=== PATIENT | female | born 1965 | race Caucasian/White ===

== ENCOUNTER 2025-07-11 18:11 | Emergency (ER) | payer OTHER, SELFPAY ==
--- OUTSIDE RECORDS SUMMARY | 2025-07-09 14:20 | XMS_ITS | Encounter Summary ---
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 01/06/2026 (Approximate), Expires: 04/07/2026 documented as of this encounter Visit Diagnoses Diagnosis History of breast cancer- Primary Personal history of malignant neoplasm of breast Fatty liver Other chronic nonalcoholic liver disease documented in this encounter Care Teams Ring Attacher Relationship Specialty Start Date End Date Elayne Bishop CNP [address] [place] [address] PCP - General 02/09/23 [place] [address] [place] [address] Consulting Hematology/Oncology 06/27/19 [place] ([place] [address] [place] [address] Specialty Warp Tester Hematology/Oncology 07/16/19 Katelyn Oneal PAFransicoC [address] [place] [address] Physician Semiconductor Package Symbol Stamper Hematology/Oncology 08/15/19 Ochoa Oden MD [address] [place] [address] Physician Hematology/Oncology 06/20/24 Tc Senior APRN [address] [place] [address] Referring 04/10/25 documented as of this encounter
[2025-07-11 18:18] VITALS: BP 180/90; PULSE 84; TEMP 36.7; O2SAT 98; BMI 44.9
--- OUTSIDE RECORDS SUMMARY | 2025-07-11 18:19 | XMS_ITS | Encounter Summary ---
Author Organization [facility] Address [facility] [place] [address] Care Team Providers Care Electric Welder Name Role Phone Halina Orantes MD Unavailable Destini Kent(Hist) Primary Care Provider Unavail able Destiney Martins (Rn) RN Unavailable Janine Carter RN Unavailable [phone] Cory Lang MD Unavailable [phone] Katelyn Oneal PA-C Unavailable [phone] Elayne Bishop CNP Primary Care Provider [phone] Ochoa Oden MD Unavailable [phone] Tc Senior APRN Unavailable [phone] Source Comments In the event this information is protected by the Federal Confidentiality of Alcohol and Drug AbusePatient Records regulations: The Federal rules restrict any use of the information to criminally investigate or prosecute any alcohol or drug abuse patient.[facility] Encounter Details Date Type Department Care Team (Late st Contact Info) Description 12/11/2019 Radiology Radiology [address] [place] [address] Ricarda Ventura RDMS Social History Tobacco Use Types Packs/Day Years Used Date Smoking Tobacco: Former Cigarettes Q uit: 2008 Smokeless Tobacco: Never Alcohol Use Standard Drinks/Week Comments Not Currently 0 (1 standard drink = 0.6 oz pur e alcohol) PHQ-2 Answer Date Recorded PHQ-2 Score 0 08/18/2019 Comments No Sex and Gender Information Value Date Recorded Sex Assigned at Female 09/22/2021 7:14 AM EST Legal Sex Female 10:30 AM EDT Gender Identity Female 09/22/2021 7:14 AM EST Sexual Orientation Straight 09/22/2021 7: 14 AM EST documented as of this encounter Functional Status * Are you deaf or do you have serious difficulty hearing? Answer Date of Assessment Author No 08/02/2019 3:47 PM EDT Ab taco Ray RN * Are you blind or do you have serious difficulty seeing, even when wearing glasses? Answer Date of Assessment Author No 08/02/2019 3:47 PM MAURYT Ab taco Ray RN * Do you have serious difficulty walking or climbing stairs? Answer Date of Assessment Author No 08/02/2019 3:47 PM Ab taco Driver RN * Do you have difficulty dressing or bathing? Answer Date of Assessment Author No 08/02/2019 3:47 PM MAURYT Ab taco Ray RN * Because of a physical, mental, or emotional condition, do you have difficulty doing errands alone such as visiting a doctor's office or shopping? Answer Date of Assessment Author No 08/02/2019 3:47 PM Ab taco Driver RN documented as of this encounter Mental Status * Because of a physical, mental, or emotional condition, do you have serious difficulty concentrating, remembering, or making decisions? Answer Entry Date Author No 08/02/2019 3:47 PM Ab taco Driver RN documented in this encounter Plan of Treatment Upcoming Encounters Date Type Department Care Team (Late st Contact Info) Description 08/02/2025 10:30 AM EDT Office Visit Cardiology [address] [place] [address] [place] [address] [place] [address] SOB 11/05/2025 7:15 AM EST Office Visit Cardiology [address] [place] [address] Dx: Palpitation [R00.2] 11/05/2025 7:30 AM EST Procedure Cardiology [address] [place] [address] Dx: Palpitation [R00.2] 11/05/2025 8:15 AM EST Office Visit Preventive Cardiology [address] [place] [address] Brayan Leonardo MD [address] [facility] [address] [place] [address] Dx: Palpitation [R00.2] 12/31/2025 1:45 PM EDT Office Visit [facility] [address] [place] [address] 6 month follow up with lab 12/31/2025 2:00 PM EDT Visit (SP) Office Hematology/Oncolog y [address] [address] Katelyn Oneal, PA-C [address] [place] [address] 6 month follow up with lab documented as of this encounter Visit Diagnoses Not on filedocumented in this encounter Care Teams Electric Welder Relationship Specialty Start Date End Date Destini Kent(Hist) PCP - General 07/13/19 02/08/23 Elayne Bishop CNP [address] [place] [address] PCP - General 02/09/23 [place] [address] [place] [address] Consulting Hematology/Oncology 06/27/19 Destniey [place] ([place] [address] [place] [address] Specialty City Routeman Hematology/Oncology 07/16/19 Janine Carter RN [address] [facility] [place] [address] Specialty [place]eman Hematology/Oncology 08/15/19 02/01/24 Cory Lang MD [address] [facility] [place] [address] Physician Hematology/Oncology 08/15/19 06/19/24 Katelyn Oneal, PA-C [address] [place] [address] Physician Doctor Of Chiropractic Hematology/Oncology 08/15/19 Ochoa Oden MD [address] [place] [address] Physician Hematology/Oncology 06/20/24 Tc Senior APRN [address] [place] [address] Referring 04/10/25 documented as of this encounter
--- OUTSIDE RECORDS SUMMARY | 2025-07-11 18:19 | XMS_ITS | Encounter Summary ---
Author Organization [facility] Address [facility] [place] [address] Care Team Providers Care Orthotic And Prosthetic Technician Name Role Phone Halina Orantes MD Unavailable Destini Kent(Hist) Primary Care Provider Unavail able Destiney Martins (Rn) RN Unavailable [phone] Janine Carter RN Unavailable [phone] Cory Lang MD Unavailable [phone] Katelyn Oneal PA-C Unavailable [phone] Elayne Bishop CNP Primary Care Provider [phone] Ochoa Oden MD Unavailable [phone] Tc Senior APRN Unavailable [phone] Source Comments In the event this information is protected by the Federal Confidentiality of Alcohol and Drug AbusePatient Records regulations: The Federal rules restrict any use of the information to criminally investigate or prosecute any alcohol or drug abuse patient.[facility] Encounter Details Date Type Department Care Team (Late st Contact Info) Description 12/12/2019 Radiology Radiology [address] [place] [address] Cali Pradhan MD, [address] [place] [address] Social History Tobacco Use Types Packs/Day Years [...] 3:47 PM Ab taco Driver RN * Are you blind or do you have serious difficulty seeing, even when wearing glasses? Answer Date of Assessment Author No 08/02/2019 3:47 PM Ab taco Driver RN * Do you have serious difficulty walking or climbing stairs? Answer Date of Assessment Author No 08/02/2019 3:47 PM Ab taco Driver RN * Do you have difficulty dressing or bathing? Answer Date of Assessment Author No 08/02/2019 3:47 PM Ab taco Driver RN * Because of a physical, mental, [...] taco Driver RN documented in this encounter Progress Notes * Hai Araujo (Tech), Tech - 12/12/2019 7:50 AM EST RADIOLOGY SERVICE PROGRESS NOTE SERVICE DATE: 12/12/2019 SERVICE TIME: 7:50 AM PATIENT IDENTITY VERIFICATION COMPLETED USING TWO (2) STANDARD IDENTIFIERS: Name and Date of confirmed by patient verbally PATIENT GENDER DATA: .female : No ALLERGIES: Reviewed and unchanged MEDICATIONS REVIEWED: Yes PATIENT RELEVANT IMPLANT DATA REVIEWED: Not Applicable CREATININE: Creatinine Date Value Ref Range Status 12/05/2019 0.79 0.58 - 0.96 mg/dL Final 11/13/2019 0.95 0.58 - 0.96 mg/dL Final 10/23/2019 0.93 0.58 - 0.96 mg/dL Final eGFR-All Other Races Date Value Ref Range Status 12/05/2019 >60 . Final Comment: eGFR (Estimated GFR) Units of measure: mL/min/1.73 meters squared eGFR is derived from the reexpressed MDRD Study equation using the following parameters: serum creatinine, age, gender and race. The creatinine assay has been calibrated to be traceable to IDMS. An eGFR <60 mL/min/1.73m2 for >3 months is consistent with chronic kidney disease. Refer to KDOQI guidelines for clinical interpretation. In patients with unstable renal function, e.g. those with acute kidney injury, the eGFR may not accurately reflect actual GFR. eGFR- Date Value Ref Range Status 12/05/2019 >60 Final P.O.C.T. RESULTS: N/A December 12, [address] PERFORMED: No IV SITE: NM only - not applicable, oral or physician administered agents given to patient POST EXAM PIV STATUS: Not applicable PROCEDURE TYPE: NM INJECT: LEFT BREAST SENTINEL INJECTION. 538 microcuries Tc99m SULFUR COLLOID . No other medications given.. ADMINISTRATION TIME: 745 PATIENT DISCHARGED TO: Ambulatory patient, left [place] department area. A Diagnostic radioactive procedure has taken place, with no further precautions necessary other than routine body substance precautions. More information regarding radiation safety can be found usingthis link: [email or web address] SIGNATURE: Mian Judd PATIENT NAME: Pavithra Martins DATE: December 12, 2019 TIME: 7:50 AM PAGER/CONTACT #: documented in this encounter Plan of Treatment Upcoming Encounters Date Type Department Care Team (Late st Contact Info) Description 08/02/2025 10:30 AM EDT Office Visit Cardiology [address] [place] [address] [place] [address] [facility] [place] [address] SOB 11/05/2025 7:15 AM EST Office Visit Cardiology [address] [place] [address] Dx: Palpitation [R00.2] 11/05/2025 7:30 AM EST Procedure Cardiology [address] [place] [address] Dx: Palpitation [R00.2] 11/05/2025 8:15 AM EST Office Visit Preventive Cardiology [address] [place] [address] Brayan Leonardo MD [address] [place] [address] [place] [address] Dx: Palpitation [R00.2] 12/31/2025 1:45 PM EDT Office Visit [facility] [address] [address] [place] [address] 6 month follow up with lab 12/31/2025 2:00 PM EDT Visit (SP) Office Hematology/Oncolog y [address] [place] [address] Katelyn Oneal, PAFransicoC [address] [facility] [address] [place] [address] 6 month follow up with lab documented as of this encounter Visit Diagnoses Not on filedocumented in this encounter Care Teams Orthotic And Prosthetic Technician Relationship Specialty Start Date End Date Destini Kent(Hist) PCP - General 07/13/19 02/08/23 Elayne Bishop, TUCKER [address] [place] [address] PCP - General 02/09/23 [place] [address] [place] [address] Consulting Hematology/Oncology 06/27/19 [place] ([place] [address] [place] [address] Specialty Felt Finisher Hematology/Oncology 07/16/19 Janine Carter RN [address] [facility] [place] [address] Specialty Felt Finisher Hematology/Oncology 08/15/19 02/01/24 Cory Lang MD [address] [place] [address] [place] [address] Physician Hematology/Oncology 08/15/19 06/19/24 Katelyn Oneal, PA-C [address] [place] [address] [place] [address] Physician Retail Operations Specialist Hematology/Oncology 08/15/19 Ochoa Oden MD [address] [facility] [place] [address] Physician Hematology/Oncology 06/20/24 cT Senior APRN [address] [place] [address] Referring 04/10/25 documented as of this encounter
--- OUTSIDE RECORDS SUMMARY | 2025-07-11 18:19 | XMS_ITS | Encounter Summary ---
Author Organization [facility] Address [facility] [place] [address] Care Team Providers Care Dredge Operator Supervisor Name Role Phone Halina Orantes MD Unavailable Destini Kent(Hist) Primary Care Provider Unavail able Destiney Martins (Rn) RN Unavailable Janine Carter RN Unavailable [phone] Cory Lang MD Unavailable [phone] Katelyn Oneal PA-C Unavailable [phone] Elayne Bishop CNP Primary Care Provider [phone] Ochoa Oden MD Unavailable [phone] Tc Senior APRN Unavailable [phone] Source Comments In the event this information is protected by the Federal Confidentiality of Alcohol and Drug AbusePatient Records regulations: The Federal rules restrict any use of the information to criminally investigate or prosecute any alcohol or drug abuse patient.[facility] Encounter Details Date Type Department Care Team (Late st Contact Info) Description 12/11/2019 Radiology Radiology [address] [place] [address] Sybil Faustin MD [address] [place] [address] Social History Tobacco Use Types Packs/Day Years [...] 08/02/2025 10:30 AM EDT Office Visit [facility] [address] [facility] [place] [address] [place] [address] [facility] [place] [address] SOB 11/05/2025 7:15 AM EST Office Visit Cardiology [address] [place] [address] Dx: Palpitation [R00.2] 11/05/2025 7:30 AM EST Procedure Cardiology [address] [place] [address] Dx: Palpitation [R00.2] 11/05/2025 8:15 AM EST Office Visit Preventive Cardiology [address] [place] [address] Brayan Leonardo MD [address] [facility] [address] [place] [address] Dx: Palpitation [R00.2] 12/31/2025 1:45 PM EDT Office Visit [facility] [address] [address] 6 month follow up with lab 12/31/2025 2:00 PM EDT Visit (SP) Office Hematology/Oncolog y [address] [place] [address] Katelyn Oneal, PA-C [address] [place] [place] [address] 6 month follow up with lab documented as of this encounter Visit Diagnoses Not on filedocumented in this encounter Care Teams Dredge Operator Supervisor Relationship Specialty Start Date End Date Destini Kent(Hist) PCP - General 07/13/19 02/08/23 Elayne Bishop, TUCKER [address] [place] [address] PCP - General 02/09/23 [place] [address] [place] [address] Consulting Hematology/Oncology 06/27/19 [place]y [place] ([place]), [place] [address] [place] [address] Specialty Packing Inspector Hematology/Oncology 07/16/19 Janine Carter, RN [address] [place] [address] Specialty Packing Inspector Hematology/Oncology 08/15/19 02/01/24 oCry Lang MD [address] [place] [address] [place] [address] Physician Hematology/Oncology 08/15/19 06/19/24 Katelyn Oneal PAFransicoC [address] [place] [address] [place] [address] Physician Vat Tender Hematology/Oncology 08/15/19 Ochoa Oden MD [address] [place] [address] [place] [address] Physician Hematology/Oncology 06/20/24 Tc Senior APRN [address] [place] [address] Referring 04/10/25 documented as of this encounter
--- OUTSIDE RECORDS SUMMARY | 2025-07-11 18:19 | XMS_ITS | Encounter Summary ---
Author Organization [facility] Address [facility] [place] [address] Care Team Providers Care Emergency Department Coordinator Name Role Phone Halina Orantes MD Unavailable Destini Kent(Hist) Primary Care Provider Unavail able Destiney Martins (Rn) RN Unavailable [phone] Janine Carter RN Unavailable [phone] Cory Lang MD Unavailable [phone] Katelyn Oneal PA-C Unavailable [phone] Elayne Bishop CNP Primary Care Provider [phone] Ochoa Oden MD Unavailable [phone] Tc Senior APRN Unavailable [phone] Source Comments In the event this information is protected by the Federal Confidentiality of Alcohol and Drug AbusePatient Records regulations: The Federal rules restrict any use of the information to criminally investigate or prosecute any alcohol or drug abuse patient.[facility] Encounter Details Date Type Department Care Team (Latest Contact Info) Description 11/22/2019 Patient Msg [facility] Occupational Therapy [address] [place] [address] Yon Gretel, OTR/Elle [address] [place], [place] [id number] RE: Appointment Cancellation Request Social History Tobacco Use Types Packs/Day Years Used Date Smoking Tobacco: Former Smokeless Tobacco: Never Comments:quit 11 years ago Alcohol Use Standard Drinks/Week Comments Not Currently [...] taco Ray RN documented in this encounter Plan of Treatment Upcoming Encounters Date Type Department Care Team (Late st Contact Info) Description 08/02/2025 10:30 AM EDT Office Visit Cardiology [address] [place] [address] [place] [address] [place] [address] SOB 11/05/2025 7:15 AM EST Office Visit Cardiology [address] [place] [address] Dx: Palpitation [R00.2] 11/05/2025 7:30 AM EST Procedure Cardiology [address] [place] [address] Dx: Palpitation [R00.2] 11/05/2025 8:15 AM EST Office Visit Preventive Cardiology [address] [place] [address] Brayan Leonardo MD [address] [facility] [address] [place] [address] Dx: Palpitation [R00.2] 12/31/2025 1:45 PM EDT Office Visit [facility] Laboratory [address] [facility] [place] [address] 6 month follow up with lab 12/31/2025 2:00 PM EDT Visit (SP) Office Hematology/Oncolog y [address] [place] [address] Katelyn Oneal PAFransicoC [address] [place] [address] 6 month follow up with lab documented as of this encounter Visit Diagnoses Not on filedocumented in this encounter Care Teams Emergency Department Coordinator Relationship Specialty Start Date End Date Destini Kent(Hist) PCP - General 07/13/19 02/08/23 Elayne Bishop CNP [address] [place] [address] PCP - General 02/09/23 [place] [address] [facility] [place] [address] Consulting Hematology/Oncology 06/27/19 Destiney [place] ([place]), [place] [address] [place] [address] Specialty Manufacturing Applications Engineer Hematology/Oncology 07/16/19 Janine Carter RN [address] [facility] [place] [address] Specialty Manufacturing Applications Engineer Hematology/Oncology 08/15/19 02/01/24 Cory Lang MD [address] [facility] [place] [address] Physician Hematology/Oncology 08/15/19 06/19/24 Katelyn Oneal PA-C [address] [place] [address] Physician Corporate Travel Counselor Hematology/Oncology 08/15/19 Ochoa Oden MD [address] [place] [address] Physician Hematology/Oncology 06/20/24 Tc Senior APRN [address] [place] [address] Referring 04/10/25 documented as of this encounter
--- OUTSIDE RECORDS SUMMARY | 2025-07-11 18:19 | XMS_ITS | Encounter Summary ---
Author Organization [facility] Address [facility] [place] [address] Care Team Providers Care Doll Dresser Name Role Phone Halina Orantes MD Unavailable Destini Kent(Hist) Primary Care Provider Unavail able Destiney Martins (Rn) RN Unavailable Janine Carter RN Unavailable [phone] Cory Lang MD Unavailable [phone] Katelyn Oneal PA-C Unavailable [phone] Elayne Bishop CNP Primary Care Provider [phone] Ochoa Oden MD Unavailable [phone] Tc Senior APRN Unavailable [phone] Source Comments In the event this information is protected by the Federal Confidentiality of Alcohol and Drug AbusePatient Records regulations: The Federal rules restrict any use of the information to criminally investigate or prosecute any alcohol or drug abuse patient.[facility] Encounter Details Date Type Department Care Team (Late st Contact Info) Description 11/22/2019 Get Medical Advice Hematology/Oncology [address] [address] [place] [address] Katelyn Oneal PA-C [address] [place] [address] RE: Upcoming Appointment Question Social History Tobacco Use Types Packs/Day Years [...] Assessment Author No 08/02/2019 3:47 PM Ab atco Driver RN * Because of a physical, [...] 08/02/2025 10:30 AM EDT Office Visit Cardiology [address] [place] [address] [place] [address] [facility] [address] SOB 11/05/2025 7:15 AM EST Office Visit Cardiology [address] [place] [address] Dx: Palpitation [R00.2] 11/05/2025 7:30 AM EST Procedure Cardiology [address] [place] [address] Dx: Palpitation [R00.2] 11/05/2025 8:15 AM EST Office Visit Preventive Cardiology [address] [place] [address] Brayan Leonardo MD [address] [facility] [address] [place] [address] Dx: Palpitation [R00.2] 12/31/2025 1:45 PM EDT Office Visit [facility] [address] [place] [address] 6 month follow up with lab 12/31/2025 2:00 PM EDT Visit (SP) Office Hematology/Oncolog y [address] [facility] [facility] [place] [address] Katelyn Oneal, PA-C [address] [place] [address] 6 month follow up with lab documented as of this encounter Visit Diagnoses Not on filedocumented in this encounter Care Teams Doll Dresser Relationship Specialty Start Date End Date Destini Kent(Hist) PCP - General 07/13/19 02/08/23 Elayne Bishop, TUCKER [address] [place] [address] PCP - General 02/09/23 [place] [address] [place] [address] Consulting Hematology/Oncology 06/27/19 [place]y [place] ([place]), [place] [address] [place] [address] Specialty Nanny/Household Manager Hematology/Oncology 07/16/19 Janine Carter RN [address] [facility] [place] [address] Specialty Nanny/Household Manager Hematology/Oncology 08/15/19 02/01/24 Cory Lang MD [address] [facility] [place] [address] Physician Hematology/Oncology 08/15/19 06/19/24 Katelyn Oneal PA-C [address] [facility] [place] [place] [address] Physician Nurse Administrator Hematology/Oncology 08/15/19 Ochoa Oden MD [address] [facility] [place] [address] Physician Hematology/Oncology 06/20/24 Tc Senior APRN [address] [place] [address] Referring 04/10/25 documented as of this encounter
--- OUTSIDE RECORDS SUMMARY | 2025-07-11 18:20 | XMS_ITS | Encounter Summary ---
Author Organization [facility] Address [facility] [place] [address] Care Team Providers Care Police Lieutenant Precinct Name Role Phone Halina Orantes MD Unavailable Destini Kent(Hist) Primary Care Provider Unavail able Destiney Martins (Rn) RN Unavailable [phone] Janine Carter RN Unavailable [phone] Cory Lang MD Unavailable [phone] Katelyn Oneal PA-C Unavailable [phone] Elayne Bishop CNP Primary Care Provider [phone] Ochoa Oden MD Unavailable [phone] Tc Senior APRN Unavailable [phone] Source Comments In the event this information is protected by the Federal Confidentiality of Alcohol and Drug AbusePatient Records regulations: The Federal rules restrict any use of the information to criminally investigate or prosecute any alcohol or drug abuse patient.[facility] Reason for Visit * Reason Comments Breast Cancer Summary Encounter Details Date Type Department Care Team (Late st Contact Info) Description 12/19/2019 Abstract General Surgery [address] [place] [address] [place] [address] [place] [address] Breast Cancer Summary Social History Tobacco Use Types Packs/Day Years [...] 08/02/2025 10:30 AM EDT Office Visit Cardiology [address] [place] [address] [place] [address] [facility] [place] [address] SOB 11/05/2025 7:15 AM EST Office Visit Cardiology [address] [place] [address] Dx: Palpitation [R00.2] 11/05/2025 7:30 AM EST Procedure Cardiology [address] [place] [address] Dx: Palpitation [R00.2] 11/05/2025 8:15 AM EST Office Visit Preventive Cardiology [address] [place] [address] Brayan Leonardo MD 95[address] [facility] [address] [place] [address] Dx: Palpitation [R00.2] 12/31/2025 1:45 PM EDT Office Visit [facility] Laboratory [address] [place] [address] 6 month follow up with lab 12/31/2025 2:00 PM EDT Visit (SP) Office Hematology/Oncolog y [address] [place] [address] Katelyn Oneal PA-C [address] [place] [address] 6 month follow up with lab documented as of this encounter Visit Diagnoses Not on filedocumented in this encounter Care Teams Police Lieutenant Precinct Relationship Specialty Start Date End Date Destini Kent(Hist) PCP - General 07/13/19 02/08/23 Elayne Bishop CNP [address] [place] [address] PCP - General 02/09/23 [place] [address] [place] [address] Consulting Hematology/Oncology 06/27/19 [place]iney [place] ([place]), [place] [address] [place] [address] Specialty Pinmaker Hematology/Oncology 07/16/19 Janine Carter RN [address] [place] [address] Specialty Pinmaker Hematology/Oncology 08/15/19 02/01/24 Cory Lang MD [address] [facility] [place] [address] Physician Hematology/Oncology 08/15/19 06/19/24 Katelyn Oneal, PA-C [address] [place] [address] Physician Gear Tooth Lapping Machine Operator Hematology/Oncology 08/15/19 Ochoa Oden MD [address] [place] [address] Physician Hematology/Oncology 06/20/24 Tc Senior APRN [address] [place] [address] Referring 04/10/25 documented as of this encounter
--- OUTSIDE RECORDS SUMMARY | 2025-07-11 18:20 | XMS_ITS | Encounter Summary ---
Author Organization [facility] Address [facility] [place] [address] Care Team Providers Care Skidder Operator Name Role Phone Halina Orantes MD Unavailable Destiney Martins (Rn) RN Unavailable [phone] Janine Carter RN Unavailable [phone] Cory Lang MD Unavailable [phone] Katelyn Oneal PA-C Unavailable [phone] Elayne Bishop CNP Primary Care Provider [phone] Ochoa Oden MD Unavailable [phone] Tc Senior APRN Unavailable [phone] Source Comments In the event this information is protected by the Federal Confidentiality of Alcohol and Drug AbusePatient Records regulations: The Federal rules restrict any use of the information to criminally investigate or prosecute any alcohol or drug abuse patient.[facility] Encounter Details Date Type Department Care Team (Late st Contact Info) Description 02/18/2023 Patient Msg Procedures [address] [facility] [place] [address] Provider, Ccf COLONOSCOPY PREP INSTRUCTIONS Social History Tobacco Use Types Packs/Day Years Used Date Smoking Tobacco: Former Cigarettes 0.5 20 1 988 - 2007 Smokeless Tobacco: Never Alcohol Use Standard Drinks/Week Comments Not Currently 0 (1 standard drink = 0.6 oz pur e alcohol) PHQ-2 Answer Date Recorded PHQ-2 score 0 02/09/2023 Area Deprivation Index Answer Date Jhonny rded National Score (1-100), lower number is lower ri sk Not on file 09/15/2020 State Score (1-10), lower number is lower risk N ot on file 09/15/2020 Data from: https://www.neighborhoodatlas.medicine.[facility]/. Last address used for calculation Not on file 09/15/2020 Comments No Sex and Gender Information Value [...] 08/02/2025 10:30 AM EDT Office Visit Cardiology [address] [place] [address] [place] [address] [facility] [address] SOB 11/05/2025 7:15 AM EST Office Visit Cardiology [address] [place] [address] Dx: Palpitation [R00.2] 11/05/2025 7:30 AM EST Procedure Cardiology [address] [place] [address] Dx: Palpitation [R00.2] 11/05/2025 8:15 AM EST Office Visit Preventive Cardiology [address] [place] [address] Brayan Leonardo MD 95[address] [facility] [address] [place] [address] Dx: Palpitation [R00.2] 12/31/2025 1:45 PM EDT Office Visit [facility] Laboratory [address] [place] [address] 6 month follow up with lab 12/31/2025 2:00 PM EDT Visit (SP) Office Hematology/Oncolog y [address] [facility] [place] [address] Katelyn Oneal, PA-C [address] [place] [address] 6 month follow up with lab documented as of this encounter Visit Diagnoses Not on filedocumented in this encounter Care Teams Skidder Operator Relationship Specialty Start Date End Date Elayne Bishop CNP [address] [place] [address] PCP - General 02/09/23 [place] [address] [facility] [place] [address] Consulting Hematology/Oncology 06/27/19 [place] ([place] [address] [place] [address] Specialty Disk And Tape Machine Tender Hematology/Oncology 07/16/19 Janine Carter RN [address] [place] [address] Specialty Disk And Tape Machine Tender Hematology/Oncology 08/15/19 02/01/24 Cory Lang MD [address] [facility] [place] [address] Physician Hematology/Oncology 08/15/19 06/19/24 Katelyn Oneal, PA-C [address] [place] [address] Physician Finisher Tailor Apprentice Hematology/Oncology 08/15/19 Ochoa Oden MD [address] [place] [address] Physician Hematology/Oncology 06/20/24 Tc Senior APRN [address] [place] [address] Referring 04/10/25 documented as of this encounter
--- OUTSIDE RECORDS SUMMARY | 2025-07-11 18:20 | XMS_ITS | Encounter Summary ---
Author Organization [facility] Address [facility] [place] [address] Care Team Providers Care Project Management Instructor Name Role Phone Halina Orantes MD Unavailable Destiney Martins (Rn) RN Unavailable [phone] Janine Carter RN Unavailable [phone] Cory Lang MD Unavailable [phone] Katelyn Oneal PA-C Unavailable [phone] Elayne Bishop CNP Primary Care Provider [phone] Ochoa Oden MD Unavailable [phone] Tc Senior APRN Unavailable [phone] Source Comments In the event this information is protected by the Federal Confidentiality of Alcohol and Drug AbusePatient Records regulations: The Federal rules restrict any use of the information to criminally investigate or prosecute any alcohol or drug abuse patient.[facility] Encounter Details Date Type Department Care Team (Late st Contact Info) Description 09/05/2023 Patient Msg Hematology/Oncology [address] [place] [place] [address] Cory Lang MD [address] [facility] [place] [address] Appointment Cancellation Request Social History Tobacco Use Types Packs/Day Years Used Date Smoking Tobacco: Former Cigarettes 0.5 20 1 988 - 2007 Smokeless Tobacco: Never Alcohol Use Standard Drinks/Week Comments Not Currently 0 (1 standard drink = 0.6 oz pur e alcohol) PHQ-2 Answer Date Recorded PHQ-2 score 0 09/09/2023 Area Deprivation Index Answer Date Jhonny rded National Score (1-100), lower number is lower ri sk 94 03/09/2023 State Score (1-10), lower number is lower risk 9 03/09/2023 Data from: https://www.neighborhoodatlas.medicine.[facility]/. Last address used for calculation [address] 03/09/2023 Comments No Sex and Gender Information Value [...] 08/02/2025 10:30 AM EDT Office Visit Cardiology [address] [place] [address] [place] [address] [place] [address] SOB 11/05/2025 7:15 AM EST Office Visit Cardiology [address] [place] [address] Dx: Palpitation [R00.2] 11/05/2025 7:30 AM EST Procedure Cardiology [address] [place] [address] Dx: Palpitation [R00.2] 11/05/2025 8:15 AM EST Office Visit Preventive Cardiology [address] [place] [address] Brayan Leonardo MD [address] [facility] [address] [place] [address] Dx: Palpitation [R00.2] 12/31/2025 1:45 PM EDT Office Visit [facility] [place] Laboratory [address] [place] [address] 6 month follow up with lab 12/31/2025 2:00 PM EDT Visit (SP) Office Hematology/Oncolog y [address] [facility] [place] [address] Katelyn Oneal, PA-C [address] [place] [place] [address] 6 month follow up with lab documented as of this encounter Visit Diagnoses Not on filedocumented in this encounter Care Teams Project Management Instructor Relationship Specialty Start Date End Date Elayne Bishop CNP [address] [place] [address] PCP - General 02/09/23 [place] [address] [place] [address] Consulting Hematology/Oncology 06/27/19 [place]y [place] ([place] [address] [place] [address] Specialty Veneer Drier Tailer Hematology/Oncology 07/16/19 Janine Carter RN [address] [place] [address] Specialty Veneer Drier Tailer Hematology/Oncology 08/15/19 02/01/24 Cory Lang MD [address] [facility] [place] [address] Physician Hematology/Oncology 08/15/19 06/19/24 Katelyn Oneal, PA-C [address] [facility] [place] [address] Physician Shellfish Weigher Hematology/Oncology 08/15/19 Ochoa Oden MD [address] [facility] [place] [address] Physician Hematology/Oncology 06/20/24 Tc Senior APRN [address] [place] [address] Referring 04/10/25 documented as of this encounter
--- OUTSIDE RECORDS SUMMARY | 2025-07-11 18:20 | XMS_ITS | Clinical Summary ---
Author Organization [employer] Address [id number] [address] [place] [address] Care Team Providers Care Dumper Name Role Phone No Pcp, No Pcp Primary Care Provider Unavailabl e Allergies No known active allergies Medications metFORMIN XR (GLUCOPHAGE XR) 500 mg 24 hr tablet Take 500 mg by mouth. Active losartan (COZAAR) 50 mg tablet Take 50 mg by mouth. Active albuterol (PROVENTIL HFA;VENTOLIN HFA) 90 mcg/actuation inhaler Inhale 2 puffs every 6 (six) hours as needed for wheezing. Active ondansetron ODT (ZOFRAN-ODT) 4 mg disintegrating tablet Dissolve 4 mg on tongue every 8 (eight) hours as needed for nausea or vomiting. Active insulin glargine (LANTUS) 100 unit/mL injection Inject 20 Units under the skin nightly. Active prochlorperazine (COMPAZINE) 10 mg tablet Take 10 mg by mouth every 6 (six) hours as needed for nausea or vomiting. Active bumetanide (BUMEX) 2 mg tablet Take 2 mg by mouth daily. 9 Active acyclovir (ZOVIRAX) 200 mg capsule Take 200 mg by mouth. Active famotidine (PEPCID) 40 mg tablet Take 40 mg by mouth. Active loratadine (CLARITIN) 10 mg tablet Take 10 mg by mouth daily. Active ondansetron (ZOFRAN) 8 mg tablet Take 8 mg by mouth every 8 (eight) hours as needed. 9 Active benzonatate (TESSALON PERLES) 100 mg capsule Take 1 capsule (100 mg total) by mouth 3 (three) times a day as needed for cough. 21 capsule Active Family History Medical History Relation Name Comments Breast cancer Neg Hx Social History Tobacco Use Types Packs/Day Years Used Date Smoking Tobacco: Never Smokeless Tobacco: Never Alcohol Use Standard Drinks/Week Comments Never 0 (1 standard drink = 0.6 oz pur e alcohol) AUDIT-C Answer Date Recorded Frequency of Alcohol Consumption Never 08/17/2019 Average Number of Drinks Not on file 019 Frequency of Binge Drinking Not on file 05/2019 Childcare Answer Date Recorded Childcare Unknown 03/21/2019 Employment Answer Date Recorded Employment Unknown 03/21/2019 Hunger Screening Answer Date Recorded Within the past 12 months we worried whether our food would run out before we got money to buy more. Never True 11/30/2024 Within the past 12 months th e food we bought just didn't last and we didn't have money to get more. Never True 11/30/2024 Purpose - Life Answer Date Recorded Purpose and direction in life Unknown Comments No Sex and Gender Information Value Date Recorded Sex Assigned at Not on file Legal Sex Female 11:23 AM EDT Gender Identity Not on file Sexual Orientation Not on file Last Filed Vital Signs Vital Sign Reading Time Taken Comments Blood Pressure 181/86 11/30/2024 7:06 PM EST Pulse 96 11/30/2024 7:25 PM EST Temperature 37.7 C (99.9 F) 11/30/2024 7:06 PM EST Respiratory Rate 18 11/30/2024 7:25 PM EST Oxygen Saturation 96% 11/30/2024 7:25 PM EST Inhaled Oxygen Concentration - - Weight 113.4 kg (250 lb) 11/30/2024 7:06 PM EST Height 165.1 cm (5' 5 ) 11/30/2024 7:06 PM EST Body Mass Index 41.6 11/30/2024 7:06 PM EST Plan of Treatment Health Maintenance Due Date Last Done Comments Depression Screening 1979 Adult BMI Follow Up Plan 1985 Zoster (Shingles) Vaccine (1 of 2) 2017 COVID-19 Vaccine (2024-2 6 season) 2025 08/26/2021 Influenza Vaccine 06/10/2025 07/19/2019, , 05/16/2019 Adult BMI Screening 11/30/2025 11/30/2024 Tobacco Screening 11/30/2025 11/30/2024 DTaP,Tdap and Td Vaccines (2 - Td or Tdap) 03/03/2034 03/03/2024 Medical Devices Not on file Insurance [employer] Care Teams Dumper Relationship Specialty Start Date End Date No Pcp, [place] [address] PCP - General Family Medicine 11/30/24
--- OUTSIDE RECORDS SUMMARY | 2025-07-11 18:20 | XMS_ITS | Encounter Summary ---
Author Organization [facility] Address [address] [place] [address] Care Team Providers Care Fisher Crab Name Role Phone Halina Orantes MD Unavailable Destiney Martins (Rn) RN Unavailable [phone] Katelyn Oneal PA-C Unavailable [phone] Elayne Bishop CNP Primary Care Provider [phone] Ochoa Oden MD Unavailable [phone] Tc Senior APRN Unavailable [phone] Source Comments In the event this information is protected by the Federal Confidentiality of Alcohol and Drug AbusePatient Records regulations: The Federal rules restrict any use of the information to criminally investigate or prosecute any alcohol or drug abuse patient.[facility] Encounter Details Date Type Department Care Team (Late st Contact Info) Description 04/10/2025 Patient Msg Referring Physician [address] [place] [address] Provider, [facility] cardiology referral Social History Tobacco Use Types Packs/Day Years Used Date Smoking Tobacco: Former Cigarettes 0.5 20 1 988 - 2007 Smokeless Tobacco: Never Alcohol Use Standard Drinks/Week Comments Not Currently 0 (1 standard drink = 0.6 oz pur e alcohol) PHQ-2 Answer Date Recorded PHQ-2 score 0 12/15/2024 Area Deprivation Index Answer Date Jhonny rded National Score (1-100), lower number is lower ri sk 95 12/18/2024 State Score (1-10), lower number is lower risk 9 12/18/2024 Data from: https://www.neighborhoodatlas.[facility]/. Last address used for calculation [address] [facility] 12/18/2024 Comments No Sex and Gender Information [...] 08/02/2025 10:30 AM EDT Office Visit Cardiology [address] [place] [address] [place] [address] [facility] [place] [address] SOB 11/05/2025 7:15 AM EST Office Visit Cardiology [address] [place] [address] Dx: Palpitation [R00.2] 11/05/2025 7:30 AM EST Procedure Cardiology [address] [place] [address] Dx: Palpitation [R00.2] 11/05/2025 8:15 AM EST Office Visit Preventive Cardiology [address] [place] [address] Brayan Leonardo MD [address] [facility] [address] [place], [place] [address] Dx: Palpitation [R00.2] 12/31/2025 1:45 PM EDT Office Visit [facility] Laboratory [address] [place] [address] 6 month follow up with lab 12/31/2025 2:00 PM EDT Visit (SP) Office Hematology/Oncolog y [address] [place] [address] Katelyn Oneal PA-C [address] [place] [address] 6 month follow up with lab documented as of this encounter Visit Diagnoses Not on filedocumented in this encounter Care Teams Fisher Crab Relationship Specialty Start Date End Date Elayne Bishop CNP [address] [place] [address] PCP - General 02/09/23 [place] [address] [place] [address] Consulting Hematology/Oncology 06/27/19 [place]iney [place] ([place]), [place] [address] [place] [address] Specialty Medical Claims Assistant Hematology/Oncology 07/16/19 Katelyn Oneal, PA-C [address] [place] [address] [place] [address] Physician Otc Clerk Hematology/Oncology 08/15/19 Ochoa Oden MD [address] [place] [address] [place] [address] Physician Hematology/Oncology 06/20/24 Tc Senior APRN [address] [place] [address] Referring 04/10/25 documented as of this encounter
--- OUTSIDE RECORDS SUMMARY | 2025-07-11 18:20 | XMS_ITS | Encounter Summary ---
Author Organization [facility] Address [facility] [place] [address] Care Team Providers Care Horse Farm Manager Name Role Phone Halina Orantes MD Unavailable Destiney Martins (Rn) RN Unavailable [phone] Katelyn Oneal PA-C Unavailable [phone] Elayne Bishop CNP Primary Care Provider [phone] Ochoa Oden MD Unavailable [phone] Tc Senior APRN Unavailable [phone] Source Comments In the event this information is protected by the Federal Confidentiality of Alcohol and Drug AbusePatient Records regulations: The Federal rules restrict any use of the information to criminally investigate or prosecute any alcohol or drug abuse patient.[facility] Encounter Details Date Type Department Care Team (Late st Contact Info) Description 04/17/2025 Patient Msjacqueline [facility] Endoscopy [place] [address] [place] [address] Provider, Ccf APPT. CONFIRMATION Social History Tobacco Use Types Packs/Day Years Used Date Smoking Tobacco: Former Cigarettes 0.5 20 1 8 - 2007 Smokeless Tobacco: Never Alcohol Use Standard Drinks/Week Comments Not Currently 0 (1 standard drink = 0.6 oz pur e alcohol) PHQ-2 Answer Date Recorded PHQ-2 score 0 04/18/2025 Area Deprivation Index Answer Date Jhonny rded National Score (1-100), lower number is lower ri sk 95 12/18/2024 State Score (1-10), lower number is lower risk 9 12/18/2024 Data from: https://www.neighborhoodatlas.medicine.[facility].edu/. Last address used for calculation [address] [facility] 12/18/2024 Comments No Sex and Gender [...] 08/02/2025 10:30 AM EDT Office Visit Cardiology [address] [place] [address] [place] [address] [facility] [place] [address] SOB 11/05/2025 7:15 AM EST Office Visit Cardiology [address] [place] [address] Dx: Palpitation [R00.2] 11/05/2025 7:30 AM EST Procedure Cardiology [address] [place] [address] Dx: Palpitation [R00.2] 11/05/2025 8:15 AM EST Office Visit Preventive Cardiology [address] [place] [address] Brayan Leonardo MD [address] [facility] [address] [place], [place] [address] Dx: Palpitation [R00.2] 12/31/2025 1:45 PM EDT Office Visit [facility] Laboratory [address] [place] [address] 6 month follow up with lab 12/31/2025 2:00 PM EDT Visit (SP) Office Hematology/Oncolog y [address] [place] [address] Katelyn Oneal, PA-C [address] [place] [address] 6 month follow up with lab documented as of this encounter Visit Diagnoses Not on filedocumented in this encounter Care Teams Horse Farm Manager Relationship Specialty Start Date End Date Elayne Bishop CNP [address] [place] [address] PCP - General 02/09/23 [place] [address] [place] [address] Consulting Hematology/Oncology 06/27/19 [place]iney [place] ([place]), [place] [address] [place], [place] [id number] Specialty Underground Conduit Installer Hematology/Oncology 07/16/19 Katelyn Oneal PA-C [address] [place] [address] Physician Alumnae Secretary Hematology/Oncology 08/15/19 Ochoa Oden MD [address] [place] [address] Physician Hematology/Oncology 06/20/24 Tc Senior APRN [address] [place] [address] Referring 04/10/25 documented as of this encounter
--- OUTSIDE RECORDS SUMMARY | 2025-07-11 18:20 | XMS_ITS | Encounter Summary ---
Author Organization [facility] Address [address] [place] [address] Care Team Providers Care Deputy Clerk Name Role Phone Halina Orantes MD Unavailable Destiney Martins (Rn) RN Unavailable [phone] Katelyn Oneal PA-C Unavailable [phone] Elayne Bishop CNP Primary Care Provider [phone] Ochoa Oden MD Unavailable [phone] Tc Senior APRN Unavailable [phone] Source Comments In the event this information is protected by the Federal Confidentiality of Alcohol and Drug AbusePatient Records regulations: The Federal rules restrict any use of the information to criminally investigate or prosecute any alcohol or drug abuse patient.[facility] Encounter Details Date Type Department Care Team (Late st Contact Info) Description 04/26/2025 Patient Msg HOSP MAIN H060 [address] [place] [address] Provider, Ccf Sign up to manage your digestive symptoms in between visits, covered by insurance Social History Tobacco Use Types Packs/Day Years [...] is lower risk 9 12/18/2024 Data from: https://www.neighborhoodatlas.medicine.[facility].edu/. Last address used for calculation [address] [facility] 12/18/2024 Comments No Sex and Gender Information [...] of Assessment Author No 08/02/2019 3:47 PM Alex Driver RN * Do you have serious [...] 08/02/2025 10:30 AM EDT Office Visit Cardiology [address] [place] [address] [place] [address] [facility] [place] [address] SOB 11/05/2025 7:15 AM EST Office Visit Cardiology [address] [place] [address] Dx: Palpitation [R00.2] 11/05/2025 7:30 AM EST Procedure Cardiology [address] [place] [address] Dx: Palpitation [R00.2] 11/05/2025 8:15 AM EST Office Visit Preventive Cardiology [address] [place] [address] Brayan Leonardo MD [address] [facility] [address] [place] [address] Dx: Palpitation [R00.2] 12/31/2025 1:45 PM EDT Office Visit [facility] [address] [place] [address] 6 month follow up with lab 12/31/2025 2:00 PM EDT Visit (SP) Office Hematology/Oncolog y [address] [place] [address] Katelyn Oneal, PA-C [address] [place] [address] 6 month follow up with lab documented as of this encounter Visit Diagnoses Not on filedocumented in this encounter Care Teams Deputy Clerk Relationship Specialty Start Date End Date Elayne Bishop CNP [address] [place] [address] PCP - General 02/09/23 [place] [address] [place], [place] [id number] Consulting Hematology/Oncology 06/27/19 [place]iney [place] ([place]), [place] [address] [place], [place] [id number] Specialty Offal Baler Hematology/Oncology 07/16/19 Katelyn Oneal PA-C [address] [facility] [facility] [address] [place] [place] [address] Physician Clinical Trial Associate Hematology/Oncology 08/15/19 Ochoa Oden MD [address] [place] [address] Physician Hematology/Oncology 06/20/24 Tc Senior APRN [address] [place] [address] Referring 04/10/25 documented as of this encounter
--- OUTSIDE RECORDS SUMMARY | 2025-07-11 18:20 | XMS_ITS | Encounter Summary ---
Author Organization [facility] Address [facility] [place] [address] Care Team Providers Care Manager Math Name Role Phone Halina Orantes MD Unavailable Destini Kent(Hist) Primary Care Provider Unavail able Destiney Martins (Rn) RN Unavailable Janine Carter RN Unavailable [phone] Cory Lang MD Unavailable [phone] Katelyn Oneal PA-C Unavailable [phone] Elayne Bishop CNP Primary Care Provider [phone] Ochoa Oden MD Unavailable [phone] Tc Senior APRN Unavailable [phone] Source Comments In the event this information is protected by the Federal Confidentiality of Alcohol and Drug AbusePatient Records regulations: The Federal rules restrict any use of the information to criminally investigate or prosecute any alcohol or drug abuse patient.[facility] Encounter Details Date Type Department Care Team (Latest Contact Info) Description 03/11/2020 H&P External-NonCCF Provider, External, АНДРЕЙ Do not enter address information under generic External Provider. Social History Tobacco Use Types Packs/Day Years Used Date Smoking Tobacco: Former Cigarettes 0.5 20 1 988 - 2008 Smokeless Tobacco: Never Alcohol Use Standard [...] Orientation Straight 09/22/2021 7: 14 AM EST COVID-19 Exposure Response Date Recorded In the last month, have you been in contact with someone who was confirmed or suspected to have Coronavirus / COVID-19? No / Unsure 03/05/2020 1:47 PM EDT documented as of this encounter Functional Status [...] 3:47 PM MAURYT Ab taco Ray RN documented as of [...] 08/02/2025 10:30 AM EDT Office Visit Cardiology [address] [place] [address] [place] [address] [place] [address] SOB 11/05/2025 7:15 AM EST Office Visit Cardiology [address] [place] [address] Dx: Palpitation [R00.2] 11/05/2025 7:30 AM EST Procedure Cardiology [address] [place] [address] Dx: Palpitation [R00.2] 11/05/2025 8:15 AM EST Office Visit Preventive Cardiology [address] [place] [address] Brayan Leonardo MD [address] [facility] [address] [place] [address] Dx: Palpitation [R00.2] 12/31/2025 1:45 PM EDT Office Visit [facility] [address] [place] [address] 6 month follow up with lab 12/31/2025 2:00 PM EDT Visit (SP) Office Hematology/Oncolog y [address] [facility] [place] [address] Katelyn Oneal, PA-C [address] [place] [place] [address] 6 month follow up with lab documented as of this encounter Visit Diagnoses Not on filedocumented in this encounter Care Teams Manager Math Relationship Specialty Start Date End Date Destini Kent(Hist) PCP - General 07/13/19 02/08/23 Elayne Bishop, TUCKER [address] [place] [address] PCP - General 02/09/23 [place] [address] [place] [address] Consulting Hematology/Oncology 06/27/19 [place] ([place]), [place] [address] [place] [address] Specialty Lead Network Engineer Hematology/Oncology 07/16/19 Janine Carter RN [address] [place] [address] Specialty Lead Network Engineer Hematology/Oncology 08/15/19 02/01/24 Cory Lang MD [address] [facility] [place] [address] Physician Hematology/Oncology 08/15/19 06/19/24 Katelyn Oneal PAFransicoC [address] [place] [address] Physician Tape Calender Hematology/Oncology 08/15/19 Ochoa Oden MD [address] [place] [address] Physician Hematology/Oncology 06/20/24 Tc Senior APRN [address] [place] [address] Referring 04/10/25 documented as of this encounter
--- OUTSIDE RECORDS SUMMARY | 2025-07-11 18:20 | XMS_ITS | Encounter Summary ---
Author Organization [facility] Address [facility] [place] [address] Care Team Providers Care Housing Management Representative Name Role Phone Halina Orantes MD Unavailable Destiney Martins (Rn) RN Unavailable Katelyn Oneal PA-C Unavailable [phone] Elayne Bishop CNP Primary Care Provider [phone] Ochoa Oden MD Unavailable [phone] Tc Senior APRN Unavailable [phone] Source Comments In the event this information is protected by the Federal Confidentiality of Alcohol and Drug AbusePatient Records regulations: The Federal rules restrict any use of the information to criminally investigate or prosecute any alcohol or drug abuse patient.[facility] Encounter Details Date Type Department Care Team (Late st Contact Info) Description 08/31/2024 GI Preprocedure Call [facility] [address] [place] [address] [place] [address] [address] [place] [id number] Social History Tobacco Use Types Packs/Day Years [...] is lower risk 9 03/09/2023 Data from: https://www.neighborhoodatlas.medicine.[facility]/. Last address used for calculation [address] 03/09/2023 Comments No Sex and Gender [...] 08/02/2025 10:30 AM EDT Office Visit Cardiology [address] [place] [address] [place] [address] [facility] [place] [address] SOB 11/05/2025 7:15 AM EST Office Visit Cardiology [address] [place] [address] Dx: Palpitation [R00.2] 11/05/2025 7:30 AM EST Procedure Cardiology [address] [place] [address] Dx: Palpitation [R00.2] 11/05/2025 8:15 AM EST Office Visit Preventive Cardiology [address] [place] [address] Brayan Leonardo MD [address] [facility] [address] [place] [address] Dx: Palpitation [R00.2] 12/31/2025 1:45 PM EDT Office Visit [facility] [address] [facility] [place] [address] 6 month follow up with lab 12/31/2025 2:00 PM EDT Visit (SP) Office Hematology/Oncolog y [address] [place] [address] Katelyn Oneal PAFransicoC [address] [place] [address] 6 month follow up with lab documented as of this encounter Visit Diagnoses Not on filedocumented in this encounter Care Teams Housing Management Representative Relationship Specialty Start Date End Date Elayne Bishop CNP [address] [place] [address] PCP - General 02/09/23 [place] [address] [place] [address] Consulting Hematology/Oncology 06/27/19 [place] [address] [place] [address] Specialty Internet Sales Consultant Hematology/Oncology 07/16/19 Katelyn Oneal, PA-C [address] [facility] [place] [address] Physician Taper Operator Hematology/Oncology 08/15/19 Ochoa Oden MD [address] [facility] [facility] [place] [address] Physician Hematology/Oncology 06/20/24 Tc Senior APRN [address] [place] [address] Referring 04/10/25 documented as of this encounter
--- OUTSIDE RECORDS SUMMARY | 2025-07-11 18:20 | XMS_ITS | Encounter Summary ---
Author Organization [facility] Address [facility] [place] [address] Care Team Providers Care Publications Editor Name Role Phone Halina Orantes MD Unavailable Destiney Martins (Rn) RN Unavailable Janine Carter RN Unavailable [phone] Cory Lang MD Unavailable [phone] Katelyn Oneal PA-C Unavailable [phone] Elayne Bishop CNP Primary Care Provider [phone] Ochoa Oden MD Unavailable [phone] Tc Senior APRN Unavailable [phone] Source Comments In the event this information is protected by the Federal Confidentiality of Alcohol and Drug AbusePatient Records regulations: The Federal rules restrict any use of the information to criminally investigate or prosecute any alcohol or drug abuse patient.[facility] Encounter Details Date Type Department Care Team (Late st Contact Info) Description 03/22/2023 GI Preprocedure Call [facility] Surgery [address] [place], [place] [address] Elayne Bishop, SAFE AND VAULT INSTALLER [address] [place] [address] Social History Tobacco Use Types Packs/Day Years [...] is lower risk 9 03/09/2023 Data from: https://www.neighborhoodatlas.medicine.[facility]/. Last address used for calculation [address] 03/09/2023 Comments No Sex and Gender [...] 08/02/2025 10:30 AM EDT Office Visit Cardiology [address] [place] [address] [place] [address] [place] [address] SOB 11/05/2025 7:15 AM EST Office Visit Cardiology [address] [place] [address] Dx: Palpitation [R00.2] 11/05/2025 7:30 AM EST Procedure Cardiology [address] [place] [address] Dx: Palpitation [R00.2] 11/05/2025 8:15 AM EST Office Visit Preventive Cardiology [address] [place] [address] Brayan Leonardo MD [address] [facility] [address] [place] [address] Dx: Palpitation [R00.2] 12/31/2025 1:45 PM EDT Office Visit [facility] [address] [facility] [place] [address] 6 month follow up with lab 12/31/2025 2:00 PM EDT Visit (SP) Office Hematology/Oncolog y [address] [place] [address] Katelyn Oneal, PA-C [address] [facility] [place] [address] 6 month follow up with lab documented as of this encounter Visit Diagnoses Not on filedocumented in this encounter Care Teams Publications Editor Relationship Specialty Start Date End Date Elayne Bishop CNP [address] [place] [address] PCP - General 02/09/23 [place] [address] [place] [address] Consulting Hematology/Oncology 06/27/19 [place] ([place]), [place] [address] [place] [address] Specialty Cook Apprentice Hematology/Oncology 07/16/19 Janine Carter RN [address] [facility] [place] [address] Specialty Cook Apprentice Hematology/Oncology 08/15/19 02/01/24 Cory Lang MD [address] [facility] [place] [address] Physician Hematology/Oncology 08/15/19 06/19/24 Katelyn Oneal, PA-C [address] [facility] [place] [address] Physician Service Provider Hematology/Oncology 08/15/19 Ochoa Oden MD [address] [facility] [place] [address] Physician Hematology/Oncology 06/20/24 Tc Senior APRN [address] [place] [address] Referring 04/10/25 documented as of this encounter
--- OUTSIDE RECORDS SUMMARY | 2025-07-11 18:20 | XMS_ITS | Encounter Summary ---
Author Organization [facility] Address [facility] [place] [address] Care Team Providers Care Computer Consultant Name Role Phone Halina Orantes MD Unavailable Destiney Martins (Rn) RN Unavailable Janine Carter RN Unavailable [phone] Cory Lang MD Unavailable [phone] Katelyn Oneal PA-C Unavailable [phone] Elayne Bishop CNP Primary Care Provider [phone] Ochoa Oden MD Unavailable [phone] Tc Senior APRN Unavailable [phone] Source Comments In the event this information is protected by the Federal Confidentiality of Alcohol and Drug AbusePatient Records regulations: The Federal rules restrict any use of the information to criminally investigate or prosecute any alcohol or drug abuse patient.[facility] Encounter Details Date Type Department Care Team (Late st Contact Info) Description 09/24/2023 Patient Msg Gynecology Oncology [address] [facility] [place] [address] Angella Almaraz MD [address] [place] [address] Appointment Cancellation Request Social History Tobacco Use [...] is lower risk 9 03/09/2023 Data from: https://www.neighborhoodatlas.medicine.[facility]/. Last address used for calculation [address] 03/09/2023 Comments No Sex and Gender [...] Assessment Author No 08/02/2019 3:47 PM Ab taoc Driver RN * Do you have difficulty [...] 08/02/2025 10:30 AM EDT Office Visit Cardiology [address] [place] [address] [place] [address] [facility] [place] [address] SOB 11/05/2025 7:15 AM EST Office Visit Cardiology [address] [place] [address] Dx: Palpitation [R00.2] 11/05/2025 7:30 AM EST Procedure Cardiology [address] [place] [address] Dx: Palpitation [R00.2] 11/05/2025 8:15 AM EST Office Visit Preventive Cardiology [address] [place] [address] Brayan Leonardo MD [facility] [facility] [address] [place] [address] Dx: Palpitation [R00.2] 12/31/2025 1:45 PM EDT Office Visit [facility] [place] [facility] [address] [facility] [place] [address] 6 month follow up with lab 12/31/2025 2:00 PM EDT Visit (SP) Office Hematology/Oncolog y [address] [facility] [place] [address] Katelyn Oneal, PA-C [address] [facility] [place] [address] 6 month follow up with lab documented as of this encounter Visit Diagnoses Not on filedocumented in this encounter Care Teams Computer Consultant Relationship Specialty Start Date End Date Elayne Bishop CNP [address] [place] [address] PCP - General 02/09/23 [place] [address] [place] [address] Consulting Hematology/Oncology 06/27/19 [place]iney [place] ([place]), [place] [address] [place] [address] Specialty Strategic Client Executive Hematology/Oncology 07/16/19 Janine Carter RN [address] [facility] [place] [address] Specialty Strategic Client Executive Hematology/Oncology 08/15/19 02/01/24 Cory Lang MD [address] [facility] [place] [address] Physician Hematology/Oncology 08/15/19 06/19/24 Katelyn Oneal, PA-C [address] [facility] [place] [address] Physician Public Health Dietitian Hematology/Oncology 08/15/19 Ochoa Oden MD [address] [facility] [place] [address] Physician Hematology/Oncology 06/20/24 Tc Senior APRN [address] [place] [address] Referring 04/10/25 documented as of this encounter
--- OUTSIDE RECORDS SUMMARY | 2025-07-11 18:20 | XMS_ITS | Encounter Summary ---
Author Organization [facility] Address [id number] [place] [address] Care Team Providers Care Mold Inspector Name Role Phone No Pcp, No Pcp Primary Care Provider Unavailabl e Reason for Visit * Reason Onset Date Comments Hospital Follow-up 04/01/2025 Encounter Details Date Type Department Care Team ([facility] st Contact Info) Description 04/01/2025 Telephone [facility] Cardiology [address] [place] [address] [facility] Social History Tobacco Use Types Packs/Day Years [...] on file Sexual Orientation Not on file documented as of this encounter Miscellaneous Notes * Telephone Encounter - [facility] Neptali Tobias - 04/01/2025 7:40 AM EDT Message from the 03/29/25 d/c list Patient d/c from . Dx Elevated troponin ARANDA. Patient to f/u 1 to 2 weeks. bvb * Telephone Encounter - May Abarca CMA - 04/01/2025 7:40 AM EDT PT REFUSED HOSP FU APPT. SHE STATES I DON'T MESS WITH [facility] . documented in this encounter Plan of Treatment Not on file documented as of this encounter Visit Diagnoses Not on filedocumented in this encounter Care Teams Mold Inspector Relationship Specialty Start Date End Date No Pcp, [place] [address] PCP - General Family Medicine 11/30/24 documented as of this encounter
--- OUTSIDE RECORDS SUMMARY | 2025-07-11 18:20 | XMS_ITS | Encounter Summary ---
Author Organization [facility] Address [facility] [place] [address] Care Team Providers Care Railroad Detective Name Role Phone Halina Orantes MD Unavailable Destini Kent(Hist) Primary Care Provider Unavail able Destiney Martins (Rn) RN Unavailable Janine Carter RN Unavailable [phone] Cory Lang MD Unavailable [phone] Katelyn Oneal PA-C Unavailable [phone] Elayne Bishop CNP Primary Care Provider [phone] Ochoa Oden MD Unavailable [phone] Tc Senior APRN Unavailable [phone] Source Comments In the event this information is protected by the Federal Confidentiality of Alcohol and Drug AbusePatient Records regulations: The Federal rules restrict any use of the information to criminally investigate or prosecute any alcohol or drug abuse patient.[facility] Encounter Details Date Type Department Care Team (Late Contact Info) Description 09/01/2019 Patient Msg Hematology/Oncology [address] [place] [address] [place] [address] Provider, Ccf RE: Appointment Cancellation Request Social History Tobacco [...] 08/02/2025 10:30 AM EDT Office Visit Cardiology [address] [place] [address] [place] [address] [facility] [place] [address] SOB 11/05/2025 7:15 AM EST Office Visit Cardiology [address] [place] [address] Dx: Palpitation [R00.2] 11/05/2025 7:30 AM EST Procedure Cardiology [address] [place] [address] Dx: Palpitation [R00.2] 11/05/2025 8:15 AM EST Office Visit Preventive Cardiology [address] [place] [address] Brayan Leonardo MD 9500 [facility] [address] [place] [address] Dx: Palpitation [R00.2] 12/31/2025 1:45 PM EDT Office Visit [facility] Laboratory [address] [facility] [place] [address] 6 month follow up with lab 12/31/2025 2:00 PM EDT Visit (SP) Office Hematology/Oncolog y [address] [place] [address] Katelyn Oneal, PA-C [address] [address] 6 month follow up with lab documented as of this encounter Visit Diagnoses Not on filedocumented in this encounter Care Teams Railroad Detective Relationship Specialty Start Date End Date Destini Kent(Hist) PCP - General 07/13/19 02/08/23 Elayne Bishop CNP [address] [place] [address] PCP - General 02/09/23 [place] [address] [place] [address] Consulting Hematology/Oncology 06/27/19 [place] ([place]), [place] [address] [place] [address] Specialty Stud Driver Hematology/Oncology 07/16/19 Janine Carter RN [address] [facility] [place] [address] Specialty Stud Driver Hematology/Oncology 08/15/19 02/01/24 Cory Lang MD [address] [place] [address] [place] [address] Physician Hematology/Oncology 08/15/19 06/19/24 Katelyn Oneal, PA-C [address] [place] [address] [place] [address] Physician Intake Rn Hematology/Oncology 08/15/19 Ochoa Oden MD [address] [place] [address] [place] [address] Physician Hematology/Oncology 06/20/24 Tc Senior APRN [address] [place] [address] Referring 04/10/25 documented as of this encounter
--- OUTSIDE RECORDS SUMMARY | 2025-07-11 18:20 | XMS_ITS | Encounter Summary ---
Author Organization [facility] Address [facility] [place] [address] Care Team Providers Care Civil Celebrant Name Role Phone Halina Orantes MD Unavailable Destini Kent(Hist) Primary Care Provider Unavail able Destiney Martins (Rn) RN Unavailable Janine Carter RN Unavailable [phone] Cory Lang MD Unavailable [phone] Katelyn Oneal PA-C Unavailable [phone] Elayne Bishop CNP Primary Care Provider [phone] Ochoa Oden MD Unavailable [phone] Tc Senior APRN Unavailable [phone] Source Comments In the event this information is protected by the Federal Confidentiality of Alcohol and Drug AbusePatient Records regulations: The Federal rules restrict any use of the information to criminally investigate or prosecute any alcohol or drug abuse patient.[facility] Encounter Details Date Type Department Care Team (Latest Contact Info) Description 03/07/2020 H&P External-NonCCF Provider, External, АНДРЕЙ Do not [...] 08/02/2025 10:30 AM EDT Office Visit Cardiology [address] [place] [address] [place] [address] [facility] [place] [address] SOB 11/05/2025 7:15 AM EST Office Visit Cardiology [address] [place] [address] Dx: Palpitation [R00.2] 11/05/2025 7:30 AM EST Procedure Cardiology [address] [place] [address] 66[address] Dx: Palpitation [R00.2] 11/05/2025 8:15 AM EST Office Visit Preventive Cardiology [address] [place] [address] Brayan Leonardo MD 9500 [facility] [address] [place] [address] Dx: Palpitation [R00.2] 12/31/2025 1:45 PM EDT Office Visit [facility] Laboratory [address] [place] [address] 6 month follow up with lab 12/31/2025 2:00 PM EDT Visit (SP) Office Hematology/Oncolog y [address] [facility] [place] [address] Katelyn Oneal, PA-C [address] [place] [address] 6 month follow up with lab documented as of this encounter Visit Diagnoses Not on filedocumented in this encounter Care Teams Civil Celebrant Relationship Specialty Start Date End Date Destini Kent(Hist) PCP - General 07/13/19 02/08/23 Elayne Bishop, TUCKER [address] [place] [address] PCP - General 02/09/23 [place] [address] [facility] [place] [address] Consulting Hematology/Oncology 06/27/19 [place]y [place] ([place] [address] [place] [address] Specialty Oracle Database Manager Hematology/Oncology 07/16/19 Janine Carter RN [address] [place] [address] Specialty Oracle Database Manager Hematology/Oncology 08/15/19 02/01/24 Cory Lang MD [address] [facility] [place] [address] Physician Hematology/Oncology 08/15/19 06/19/24 Katelyn Oneal PAFransicoC [address] [facility] [place] [address] Physician Warehouse Order Picker Hematology/Oncology 08/15/19 Ochoa Oden MD [address] [facility] [place] [address] Physician Hematology/Oncology 06/20/24 Tc Senior APRN [address] [place] [address] Referring 04/10/25 documented as of this encounter
--- OUTSIDE RECORDS SUMMARY | 2025-07-11 18:20 | XMS_ITS | Encounter Summary ---
Author Organization [facility] Address [facility] [place] [address] Care Team Providers Care Salon Receptionist Name Role Phone Halina Orantes MD Unavailable Destiney Martins (Rn) RN Unavailable [phone] Katelyn Oneal PA-C Unavailable [phone] Elayne Bishop CNP Primary Care Provider [phone] Ochoa Oden MD Unavailable [phone] Tc Senior APRN Unavailable [phone] Source Comments In the event this information is protected by the Federal Confidentiality of Alcohol and Drug AbusePatient Records regulations: The Federal rules restrict any use of the information to criminally investigate or prosecute any alcohol or drug abuse patient.[facility] Encounter Details Date Type Department Care Team (Late st Contact Info) Description 03/04/2025 Patient Msg Gastroenterology [address] [place] [address] Ash Liao Jr., DO [address] [facility] [address] [place] [address] Appointment Request Social History Tobacco Use Types Packs/Day [...] is lower risk 9 12/18/2024 Data from: https://www.neighborhoodatlas.medicine.[facility]/. Last address used for calculation [address] [place] [address] 12/18/2024 Comments No Sex and Gender Information [...] Assessment Author No 08/02/2019 3:47 PM EDT Flor, Ab igail R, RN documented as of this encounter Mental [...] 08/02/2025 10:30 AM EDT Office Visit Cardiology [address] [place] [address] [place] [address] [facility] [place] [address] SOB 11/05/2025 7:15 AM EST Office Visit Cardiology [address] [place] [address] Dx: Palpitation [R00.2] 11/05/2025 7:30 AM EST Procedure Cardiology [address] [place] [address] Dx: Palpitation [R00.2] 11/05/2025 8:15 AM EST Office Visit Preventive Cardiology [address] [place] [address] Brayan Leonardo MD [address] [facility] [address] [place] [address] Dx: Palpitation [R00.2] 12/31/2025 1:45 PM EDT Office Visit [facility] Laboratory [address] [facility] [place] [address] 6 month follow up with lab 12/31/2025 2:00 PM EDT Visit (SP) Office Hematology/Oncolog y [address] [place] [address] Katelyn Oneal PAFransicoC [address] [place] [address] 6 month follow up with lab documented as of this encounter Visit Diagnoses Not on filedocumented in this encounter Care Teams Salon Receptionist Relationship Specialty Start Date End Date Elayne Bishop CNP [address] [place] [address] PCP - General 02/09/23 [place] [address] [place] [address] Consulting Hematology/Oncology 06/27/19 [place]y [place] ([place] [address] [place] [address] Specialty District Sales Leader Hematology/Oncology 07/16/19 Katelyn Oneal, PA-C [address] [place] [address] Physician Trouble Clerk Hematology/Oncology 08/15/19 Ochoa Oden MD [address] [place] [address] Physician Hematology/Oncology 06/20/24 Tc Senior APRN [address] [place] [address] Referring 04/10/25 documented as of this encounter
--- OUTSIDE RECORDS SUMMARY | 2025-07-11 18:20 | XMS_ITS | Encounter Summary ---
Author Organization [facility] Address [facility] [place] [address] Care Team Providers Care College Or University Department Head Name Role Phone Halina Orantes MD Unavailable Destiney Martins (Rn) RN Unavailable Janine Carter RN Unavailable [phone] Cory Lang MD Unavailable [phone] Katelyn Oneal PA-C Unavailable [phone] Elayne Bishop CNP Primary Care Provider [phone] Ochoa Oden MD Unavailable [phone] Tc Senior APRN Unavailable [phone] Source Comments In the event this information is protected by the Federal Confidentiality of Alcohol and Drug AbusePatient Records regulations: The Federal rules restrict any use of the information to criminally investigate or prosecute any alcohol or drug abuse patient.[facility] Encounter Details Date Type Department Care Team (Late st Contact Info) Description 06/10/2023 Patient Msg Ambulatory Surgery [address] [id number] Provider, Ccf Upper endoscopy instructions Social History Tobacco Use Types Packs/Day Years [...] 9 03/09/2023 Data from: https://www.neighborhoodatlas.medicine.[facility]/. Last address used for calculation [address] 03/09/2023 Comments No Sex and Gender [...] 08/02/2025 10:30 AM EDT Office Visit Cardiology [address] [place] [address] [place] [address] [place] [address] SOB 11/05/2025 7:15 AM EST Office Visit Cardiology [address] [place] [address] Dx: Palpitation [R00.2] 11/05/2025 7:30 AM EST Procedure Cardiology [address] [place] [address] Dx: Palpitation [R00.2] 11/05/2025 8:15 AM EST Office Visit Preventive Cardiology [address] [place] [address] Brayan Leonardo MD 9500 [facility] [address] [place] [address] Dx: Palpitation [R00.2] 12/31/2025 1:45 PM EDT Office Visit [facility] Laboratory [address] [place] [address] 6 month follow up with lab 12/31/2025 2:00 PM EDT Visit (SP) Office Hematology/Oncolog y [address] [facility] [place] [address] Katelyn Oneal, PAFransicoC [address] [place] [address] 6 month follow up with lab documented as of this encounter Visit Diagnoses Not on filedocumented in this encounter Care Teams College Or University Department Head Relationship Specialty Start Date End Date Elayne Bishop CNP [address] [place] [address] PCP - General 02/09/23 [place] [address] [facility] [place] [address] Consulting Hematology/Oncology 06/27/19 [place] ([place]), [place] [address] [place] [address] Specialty Product Lead Hematology/Oncology 07/16/19 Janine Carter RN [address] [place] [address] Specialty Product Lead Hematology/Oncology 08/15/19 02/01/24 Cory Lang MD 417 [facility] [place] [address] Physician Hematology/Oncology 08/15/19 06/19/24 Katelyn Oneal PA-C [address] [place] [address] Physician Accounting Specialist Hematology/Oncology 08/15/19 Ochoa Oden MD [address] [place] [address] Physician Hematology/Oncology 06/20/24 Tc Senior APRN [address] [place] [address] Referring 04/10/25 documented as of this encounter
--- OUTSIDE RECORDS SUMMARY | 2025-07-11 18:20 | XMS_ITS | Encounter Summary ---
Author Organization [facility] Address [facility] [place] [address] Care Team Providers Care Dry Room Attendant Name Role Phone Halina Orantes MD Unavailable Destini Kent(Hist) Primary Care Provider Unavail able Destiney Martins (Rn) RN Unavailable [phone] Janine Carter RN Unavailable [phone] Croy Lang MD Unavailable [phone] Katelyn Oneal PA-C Unavailable [phone] Elayne Bishop CNP Primary Care Provider [phone] Ochoa Oden MD Unavailable [phone] Tc Senior APRN Unavailable [phone] Source Comments In the event this information is protected by the Federal Confidentiality of Alcohol and Drug AbusePatient Records regulations: The Federal rules restrict any use of the information to criminally investigate or prosecute any alcohol or drug abuse patient.[facility] Encounter Details Date Type Department Care Team (Late st Contact Info) Description 08/16/2019 Patient g [facility] [address] [place] [address] Quentin Boswell, MS [address] [place] [address] RE: Appointment Cancellation Request Social History Tobacco [...] 08/02/2025 10:30 AM EDT Office Visit Cardiology [address] [place] [address] [place] [address] [facility] [place] [address] SOB 11/05/2025 7:15 AM EST Office Visit Cardiology [address] [place] [address] Dx: Palpitation [R00.2] 11/05/2025 7:30 AM EST Procedure Cardiology [address] [place] [address] Dx: Palpitation [R00.2] 11/05/2025 8:15 AM EST Office Visit Preventive Cardiology [address] [place] [address] Brayan Leonardo MD 9500 [facility] [address] [place] [address] Dx: Palpitation [R00.2] 12/31/2025 1:45 PM EDT Office Visit [facility] Laboratory [address] [facility] [place] [address] 6 month follow up with lab 12/31/2025 2:00 PM EDT Visit (SP) Office Hematology/Oncolog y [address] [place] [address] Katelyn Oneal PAFransicoC [address] [place] [address] 6 month follow up with lab documented as of this encounter Visit Diagnoses Not on filedocumented in this encounter Care Teams Dry Room Attendant Relationship Specialty Start Date End Date Destini Kent(Hist) PCP - General 07/13/19 02/08/23 Elayne Bishop CNP [address] [place] [address] PCP - General 02/09/23 [place] [address] [facility] [place] [address] Consulting Hematology/Oncology 06/27/19 [place]), [place] [address] [place] [address] Specialty Mines Safety Engineer Hematology/Oncology 07/16/19 Janine Carter RN [address] [facility] [place] [place] [address] Specialty Mines Safety Engineer Hematology/Oncology 08/15/19 02/01/24 Cory Lang MD 417 [facility] [place] [address] Physician Hematology/Oncology 08/15/19 06/19/24 Katelyn Oneal PA-C [address] [facility] [place] [address] Physician Major Sales Associate Hematology/Oncology 08/15/19 Ochoa Oden MD [address] [facility] [place] [place] [address] Physician Hematology/Oncology 06/20/24 Tc Senior APRN [address] [place] [address] Referring 04/10/25 documented as of this encounter
--- OUTSIDE RECORDS SUMMARY | 2025-07-11 18:20 | XMS_ITS | Encounter Summary ---
Author Organization [facility] Address [facility] [place] [address] Care Team Providers Care Platform Mill Supervisor Name Role Phone Halina Orantes MD Unavailable Destiney Martins (Rn) RN Unavailable [phone] Katelyn Oneal PA-C Unavailable [phone] Elayne Bishop CNP Primary Care Provider [phone] Ochoa Oden MD Unavailable [phone] Tc Senior APRN Unavailable [phone] Source Comments In the event this information is protected by the Federal Confidentiality of Alcohol and Drug AbusePatient Records regulations: The Federal rules restrict any use of the information to criminally investigate or prosecute any alcohol or drug abuse patient.[facility] Encounter Details Date Type Department Care Team (Late st Contact Info) Description 04/10/2025 Patient Msjacqueline [facility] Endoscopy [place] [address] [place] [address] Provider, Ccf Important- Instructions for your upcoming EGD Social History Tobacco Use Types Packs/Day Years [...] is lower risk 9 12/18/2024 Data from: https://www.neighborhoodatlas.medicine.[facility].edu/. Last address used for calculation [address] [facility] 12/18/2024 Comments No Sex and Gender Information [...] PM MAURYT Ab taco Ray RN * Are you [...] Assessment Author No 08/02/2019 3:47 PM MAURYT Alex Ray RN documented as of this encounter [...] 08/02/2025 10:30 AM EDT Office Visit Cardiology [address] [place] [address] [place] [address] [facility] [place] [address] SOB 11/05/2025 7:15 AM EST Office Visit Cardiology [address] [place] [address] Dx: Palpitation [R00.2] 11/05/2025 7:30 AM EST Procedure Cardiology [address] [place] [address] Dx: Palpitation [R00.2] 11/05/2025 8:15 AM EST Office Visit Preventive Cardiology [address] [place] [address] Brayan Leonardo MD 9500 [facility] [address] [place] [address] Dx: Palpitation [R00.2] 12/31/2025 1:45 PM EDT Office Visit [facility] Laboratory [address] [facility] [place] [address] 6 month follow up with lab 12/31/2025 2:00 PM EDT Visit (SP) Office Hematology/Oncolog y [address] [place] [address] Katelyn Oneal, PA-C [address] [place] [address] 6 month follow up with lab documented as of this encounter Visit Diagnoses Not on filedocumented in this encounter Care Teams Platform Mill Supervisor Relationship Specialty Start Date End Date Elayne Bishop CNP [address] [place] [address] PCP - General 02/09/23 [place] [address] [place] [address] Consulting Hematology/Oncology 06/27/19 Destiney [place]ins (Rn), [place] [address] [place], [place] [id number] Specialty Fitness Centre Manager Hematology/Oncology 07/16/19 Katelyn Oneal PAFransicoC [address] [place] [address] Physician Professor Of Literacy Hematology/Oncology 08/15/19 Ochoa Oden MD [address] [place] [place] [address] Physician Hematology/Oncology 06/20/24 Tc Senior APRN [address] [place] [address] Referring 04/10/25 documented as of this encounter
--- OUTSIDE RECORDS SUMMARY | 2025-07-11 18:20 | XMS_ITS | Encounter Summary ---
Author Organization [facility] Address [facility] [place] [address] Care Team Providers Care Rigging Loft Mechanic Name Role Phone Halina Orantes MD Unavailable Destini Kent(Hist) Primary Care Provider Unavail able Destiney Martins (Rn) RN Unavailable Janine Carter RN Unavailable [phone] Cory Lang MD Unavailable [phone] Katelyn Oneal PA-C Unavailable [phone] Elayne Bishop CNP Primary Care Provider [phone] Ochoa Oden MD Unavailable [phone] Tc Senior APRN Unavailable [phone] Source Comments In the event this information is protected by the Federal Confidentiality of Alcohol and Drug AbusePatient Records regulations: The Federal rules restrict any use of the information to criminally investigate or prosecute any alcohol or drug abuse patient.[facility] Encounter Details Date Type Department Care Team (Late st Contact Info) Description 08/22/2019 Patient Msg Hematology [address] [facility] [address] [place], [place] [phone] [place] [address] [place], [place] [phone] RE: Appointment Cancellation Request Social History Tobacco [...] 08/02/2025 10:30 AM EDT Office Visit Cardiology [address] [place] [address] [place] [address] [facility] [address] SOB 11/05/2025 7:15 AM EST Office Visit Cardiology [address] [place] [address] Dx: Palpitation [R00.2] 11/05/2025 7:30 AM EST Procedure Cardiology [address] [place] [address] Dx: Palpitation [R00.2] 11/05/2025 8:15 AM EST Office Visit Preventive Cardiology [address] [place] [address] Brayan Leonardo MD 9500 [facility] [address] [place] [address] Dx: Palpitation [R00.2] 12/31/2025 1:45 PM EDT Office Visit [facility] Laboratory [address] [facility] [place] [address] 6 month follow up with lab 12/31/2025 2:00 PM EDT Visit (SP) Office Hematology/Oncolog y [address] [place] [address] Katelyn Oneal PAFransicoC [address] [place] [address] 6 month follow up with lab documented as of this encounter Visit Diagnoses Not on filedocumented in this encounter Care Teams Rigging Loft Mechanic Relationship Specialty Start Date End Date Destini Kent(Hist) PCP - General 07/13/19 02/08/23 Elayne Bishop CNP [address] [place] [address] PCP - General 02/09/23 [place] [address] [facility] [place] [address] Consulting Hematology/Oncology 06/27/19 [place] ([place]), [place] [address] [place] [address] Specialty Hammer Fitter Hematology/Oncology 07/16/19 Janine Carter RN [address] [facility] [place] [address] Specialty Hammer Fitter Hematology/Oncology 08/15/19 02/01/24 Cory Lang MD 417 [facility] [place] [address] Physician Hematology/Oncology 08/15/19 06/19/24 Katelyn Oneal PA-C [address] [facility] [place] [address] Physician Lineman A Class Hematology/Oncology 08/15/19 Ochoa Oden MD [address] [facility] [place] [address] Physician Hematology/Oncology 06/20/24 Tc Senior APRN [address] [place] [address] Referring 04/10/25 documented as of this encounter
--- OUTSIDE RECORDS SUMMARY | 2025-07-11 18:20 | XMS_ITS | Encounter Summary ---
Author Organization [facility] Address [facility] [place] [address] Care Team Providers Care System Programmer Name Role Phone Halina Orantes MD Unavailable Destini Kent(Hist) Primary Care Provider Unavail able Destiney Martins (Rn) RN Unavailable [phone] Janine Carter RN Unavailable [phone] Cory Lang MD Unavailable [phone] Katelyn Oneal PA-C Unavailable [phone] Elayne Bishop CNP Primary Care Provider [phone] Ochoa Oden MD Unavailable [phone] Tc Senior APRN Unavailable [phone] Source Comments In the event this information is protected by the Federal Confidentiality of Alcohol and Drug AbusePatient Records regulations: The Federal rules restrict any use of the information to criminally investigate or prosecute any alcohol or drug abuse patient.[facility] Encounter Details Date Type Department Care Team (Late st Contact Info) Description 08/22/2019 Patient Msg Hematology [address] [place], [place] [phone] Provider, Wei RE: Appointment Cancellation Request Social History Tobacco [...] 08/02/2025 10:30 AM EDT Office Visit Cardiology [address] [place] [address] [place] [address] [place] [address] SOB 11/05/2025 7:15 AM EST Office Visit Cardiology [address] [place] [address] Dx: Palpitation [R00.2] 11/05/2025 7:30 AM EST Procedure Cardiology [address] [place] [address] Dx: Palpitation [R00.2] 11/05/2025 8:15 AM EST Office Visit Preventive Cardiology [address] [place] [address] Brayan Leonardo MD 9500 [facility] [address] [place] [address] Dx: Palpitation [R00.2] 12/31/2025 1:45 PM EDT Office Visit [facility] [place] [facility] [address] [facility] [place] [address] 6 month follow up with lab 12/31/2025 2:00 PM EDT Visit (SP) Office Hematology/Oncolog y [address] [facility] [place] [address] Katelyn Oneal, PA-C [address] [facility] [place] [address] 6 month follow up with lab documented as of this encounter Visit Diagnoses Not on filedocumented in this encounter Care Teams System Programmer Relationship Specialty Start Date End Date Destini Kent(Hist) PCP - General 07/13/19 02/08/23 Elayne Bishop CNP [address] [place] [address] PCP - General 02/09/23 [place] [address] [place] [address] Consulting Hematology/Oncology 06/27/19 [place] ([place]), [place] [address] [place] [address] Specialty Graduate Teaching Associate Hematology/Oncology 07/16/19 Janine Carter, RN [address] [facility] [place] [address] Specialty Graduate Teaching Associate Hematology/Oncology 08/15/19 02/01/24 Cory Lang MD [address] [place] [address] [place] [address] Physician Hematology/Oncology 08/15/19 06/19/24 Katelyn Oneal, PA-C [address] [place] [address] [place] [address] Physician Steamboat Captain Hematology/Oncology 08/15/19 Ochoa Oden MD [address] [place] [address] [place] [address] Physician Hematology/Oncology 06/20/24 Tc Senior APRN [address] [place] [address] Referring 04/10/25 documented as of this encounter
--- OUTSIDE RECORDS SUMMARY | 2025-07-11 18:20 | XMS_ITS | Encounter Summary ---
Author Organization [facility] Address [facility] [place] [address] Care Team Providers Care Sheet Rock Taper Name Role Phone Halina Orantes MD Unavailable Destiney Martins (Rn) RN Unavailable [phone] Katelyn Oneal PA-C Unavailable [phone] Elayne Bishop CNP Primary Care Provider [phone] Ochoa Oden MD Unavailable [phone] Tc Senior APRN Unavailable [phone] Source Comments In the event this information is protected by the Federal Confidentiality of Alcohol and Drug AbusePatient Records regulations: The Federal rules restrict any use of the information to criminally investigate or prosecute any alcohol or drug abuse patient.[facility] Encounter Details Date Type Department Care Team (Late st Contact Info) Description 07/31/2024 Patient Msg Gastroenterology [address] [place] [address] Ash Liao Jr., DO [address] [facility] [address] [place] [address] Appointment Request Social History Tobacco [...] is lower risk 9 03/09/2023 Data from: https://www.neighborhoodatlas.medicine.[facility]/. Last address used for calculation [address] 03/09/2023 Comments No Sex and Gender [...] Author No 08/02/2019 3:47 PM EDT Ab atco Ray RN documented in this encounter Plan of Treatment Upcoming Encounters Date Type Department Care Team (Late st Contact Info) Description 08/02/2025 10:30 AM EDT Office Visit Cardiology [address] [place] [address] [place] [address] [facility] [place] [address] SOB 11/05/2025 7:15 AM EST Office Visit Cardiology [address] [place] [address] Dx: Palpitation [R00.2] 11/05/2025 7:30 AM EST Procedure Cardiology [address] [place] [address] 19[address] Dx: Palpitation [R00.2] 11/05/2025 8:15 AM EST Office Visit Preventive Cardiology [address] [place] [address] Brayan Leonardo MD 9500 [facility] [address] [place] [address] Dx: Palpitation [R00.2] 12/31/2025 1:45 PM EDT Office Visit [facility] Laboratory [address] [place] [address] 6 month follow up with lab 12/31/2025 2:00 PM EDT Visit (SP) Office Hematology/Oncolog y [address] [place] [address] Katelyn Oneal PAFransicoC [address] [place] [address] 6 month follow up with lab documented as of this encounter Visit Diagnoses Not on filedocumented in this encounter Care Teams Sheet Rock Taper Relationship Specialty Start Date End Date Elayne Bishop CNP [address] [place] [address] PCP - General 02/09/23 [place] [address] [place] [address] Consulting Hematology/Oncology 06/27/19 [place]y [place] ([place] [address] [place] [address] Specialty Expeller Operator Hematology/Oncology 07/16/19 Katelyn Oneal PA-C [address] [place] [address] Physician Motorcycle Builder Hematology/Oncology 08/15/19 Ochoa Oden MD [address] [place] [address] Physician Hematology/Oncology 06/20/24 Tc Senior APRN [address] [place] [address] Referring 04/10/25 documented as of this encounter
--- OUTSIDE RECORDS SUMMARY | 2025-07-11 18:20 | XMS_ITS | Encounter Summary ---
Author Organization [facility] Address [facility] [place] [address] Care Team Providers Care Inspector Final Assembly Conveyor Line Name Role Phone Halina Orantes MD Unavailable Destini Kent(Hist) Primary Care Provider Unavail able Destiney Martins (Rn) RN Unavailable [phone] Janine Carter RN Unavailable [phone] Cory Lang MD Unavailable [phone] Katelyn Oneal PA-C Unavailable [phone] Elayne Bishop CNP Primary Care Provider [phone] Ochoa Oden MD Unavailable [phone] Tc Senior APRN Unavailable [phone] Source Comments In the event this information is protected by the Federal Confidentiality of Alcohol and Drug AbusePatient Records regulations: The Federal rules restrict any use of the information to criminally investigate or prosecute any alcohol or drug abuse patient.[facility] Encounter Details Date Type Department Care Team (Late st Contact Info) Description 08/02/2019 Get Medical Advice Hematology [address] [facility] [place] [address] [place] [address] [place], [place] [phone] RE: Medication Question (Not Renewal) Social History Tobacco Use Types Packs/Day Years Used Date Smoking Tobacco: Former Smokeless Tobacco: Never Comments:quit 11 years ago Alcohol Use Standard Drinks/Week Comments Not Currently 0 (1 standard drink = 0.6 oz pur e alcohol) Comments Unknown Sex and Gender Information Value Date Recorded [...] 08/02/2025 10:30 AM EDT Office Visit Cardiology [address] [place] [address] [place] [address] [place] [address] SOB 11/05/2025 7:15 AM EST Office Visit Cardiology [address] [place] [address] Dx: Palpitation [R00.2] 11/05/2025 7:30 AM EST Procedure Cardiology [address] [place] [address] Dx: Palpitation [R00.2] 11/05/2025 8:15 AM EST Office Visit Preventive Cardiology [address] [place] [address] Brayan Leonardo MD 9500 [facility] [address] [place], [place] [id number] Dx: Palpitation [R00.2] 12/31/2025 1:45 PM EDT Office Visit [facility] Laboratory [address] [place] [address] 6 month follow up with lab 12/31/2025 2:00 PM EDT Visit (SP) Office Hematology/Oncolog y [address] [facility] [address] [place] [address] Katelyn Oneal, PAFransicoC [address] [facility] [facility] [place] [address] 6 month follow up with lab documented as of this encounter Visit Diagnoses Not on filedocumented in this encounter Care Teams Inspector Final Assembly Conveyor Line Relationship Specialty Start Date End Date Destini Kent(Hist) PCP - General 07/13/19 02/08/23 Elayne Bishop, TUCKER [address] [place] [address] PCP - General 02/09/23 [place] [address] [place] [address] Consulting Hematology/Oncology 06/27/19 [place] ([place] [address] [place] [address] Specialty Pre Owned Sales Consultant Hematology/Oncology 07/16/19 Janine Carter RN [address] [place] [address] Specialty Pre Owned Sales Consultant Hematology/Oncology 08/15/19 02/01/24 Cory Lang MD [address] [place] [address] [place] [address] Physician Hematology/Oncology 08/15/19 06/19/24 Katelyn Oneal, PA-C [address] [place] [address] [place] [address] Physician Ways Operator Hematology/Oncology 08/15/19 Ochoa Oden MD [address] [place] [address] [place] [address] Physician Hematology/Oncology 06/20/24 Tc Senior APRN [address] [place] [address] Referring 04/10/25 documented as of this encounter
--- OUTSIDE RECORDS SUMMARY | 2025-07-11 18:20 | XMS_ITS | Encounter Summary ---
Author Organization [facility] Address [facility] [place] [address] Care Team Providers Care Custodian Athletic Equipment Name Role Phone Halina Orantes MD Unavailable Destini Kent(Hist) Primary Care Provider Unavail able Destiney Martins (Rn) RN Unavailable Janine Carter RN Unavailable [phone] Cory Lang MD Unavailable [phone] Katelyn Oneal PA-C Unavailable [phone] Elayne Bishop CNP Primary Care Provider [phone] Ochoa Oden MD Unavailable [phone] Tc Senior APRN Unavailable [phone] Source Comments In the event this information is protected by the Federal Confidentiality of Alcohol and Drug AbusePatient Records regulations: The Federal rules restrict any use of the information to criminally investigate or prosecute any alcohol or drug abuse patient.[facility] Encounter Details Date Type Department Care Team (Late st Contact Info) Description 08/22/2019 Patient Msg Hematology [address] [facility] [address] [place], [place] [phone] [place] [address] [place], [place] [phone] RE: Appointment Cancellation Request Social History Tobacco [...] 08/02/2025 10:30 AM EDT Office Visit Cardiology [address] [place] [address] [place] [address] [facility] [place] [address] SOB 11/05/2025 7:15 AM EST Office Visit Cardiology [address] [place] [address] Dx: Palpitation [R00.2] 11/05/2025 7:30 AM EST Procedure Cardiology [address] [place] [address] Dx: Palpitation [R00.2] 11/05/2025 8:15 AM EST Office Visit Preventive Cardiology [address] [place] [address] Brayan Leonardo MD 9500 [facility] [address] [place] [address] Dx: Palpitation [R00.2] 12/31/2025 1:45 PM EDT Office Visit [facility] Laboratory [address] [facility] [place] [address] 6 month follow up with lab 12/31/2025 2:00 PM EDT Visit (SP) Office Hematology/Oncolog y [address] [place] [address] Katelyn Oneal PAFransicoC [address] [place] [address] 6 month follow up with lab documented as of this encounter Visit Diagnoses Not on filedocumented in this encounter Care Teams Custodian Athletic Equipment Relationship Specialty Start Date End Date Destini Kent(Hist) PCP - General 07/13/19 02/08/23 Elayne Bishop CNP [address] [place] [address] PCP - General 02/09/23 [place] [address] [facility] [place] [place] [address] Consulting Hematology/Oncology 06/27/19 [place] [address] [place] [address] Specialty Administrative Resources Associate Hematology/Oncology 07/16/19 Janine Carter RN 417 [facility] [facility] [place] [address] Specialty Administrative Resources Associate Hematology/Oncology 08/15/19 02/01/24 Cory Lang MD [address] [place] [address] Physician Hematology/Oncology 08/15/19 06/19/24 Katelyn Oneal PA-C [address] [facility] [place] [address] Physician Auto Design Detailer Hematology/Oncology 08/15/19 Ochoa Oden MD [address] [facility] [place] [address] Physician Hematology/Oncology 06/20/24 Tc Senior APRN [address] [place] [address] Referring 04/10/25 documented as of this encounter
--- OUTSIDE RECORDS SUMMARY | 2025-07-11 18:20 | XMS_ITS | Encounter Summary ---
Author Organization [facility] Address [facility] [place] [address] Care Team Providers Care Boring Mill Operator For Metal Name Role Phone Halina Orantes MD Unavailable Destini Kent(Hist) Primary Care Provider Unavail able Destiney Martins (Rn) RN Unavailable Janine Carter RN Unavailable [phone] Cory Lang MD Unavailable [phone] Katelyn Oneal PA-C Unavailable [phone] Elayne Bishop CNP Primary Care Provider [phone] Ochoa Oden MD Unavailable [phone] Tc Senior APRN Unavailable [phone] Source Comments In the event this information is protected by the Federal Confidentiality of Alcohol and Drug AbusePatient Records regulations: The Federal rules restrict any use of the information to criminally investigate or prosecute any alcohol or drug abuse patient.[facility] Encounter Details Date Type Department Care Team (Late st Contact Info) Description 08/22/2019 Patient Msg Hematology [address] [place], [place] [phone] Provider, Wei RE: Appointment Cancellation Request Social [...] 08/02/2025 10:30 AM EDT Office Visit Cardiology [address] [place] [address] [place] [address] [facility] [place] [address] SOB 11/05/2025 7:15 AM EST Office Visit Cardiology [address] [place] [address] Dx: Palpitation [R00.2] 11/05/2025 7:30 AM EST Procedure Cardiology [address] [place] [address] Dx: Palpitation [R00.2] 11/05/2025 8:15 AM EST Office Visit Preventive Cardiology [address] [place] [address] Brayan Leonardo MD 9500 [facility] [place] [address] [place] [address] Dx: Palpitation [R00.2] 12/31/2025 1:45 PM EDT Office Visit [facility] [place] [facility] [address] [place] [address] 6 month follow up with lab 12/31/2025 2:00 PM EDT Visit (SP) Office Hematology/Oncolog y [address] [place] [address] Katelyn Oneal, PA-C [address] [place] [address] 6 month follow up with lab documented as of this encounter Visit Diagnoses Not on filedocumented in this encounter Care Teams Boring Mill Operator For Metal Relationship Specialty Start Date End Date Destini Kent(Hist) PCP - General 07/13/19 02/08/23 Elayne Bishop CNP [address] [place] [address] PCP - General 02/09/23 [place] [address] [place] [address] Consulting Hematology/Oncology 06/27/19 [place]), [place] [address] [place] [address] Specialty Hydrographic Surveyor Hematology/Oncology 07/16/19 Janine Carter, RN [address] [facility] [place] [address] Specialty Hydrographic Surveyor Hematology/Oncology 08/15/19 02/01/24 Cory Lang MD [address] [place] [address] [place] [address] Physician Hematology/Oncology 08/15/19 06/19/24 Katelyn Oneal, PA-C [address] [place] [address] [place] [address] Physician Vascular Radiologist Hematology/Oncology 08/15/19 Ochoa Oden MD [address] [place] [address] [place] [address] Physician Hematology/Oncology 06/20/24 Tc Senior APRN [address] [place] [address] Referring 04/10/25 documented as of this encounter
--- OUTSIDE RECORDS SUMMARY | 2025-07-11 18:20 | XMS_ITS | Encounter Summary ---
Author Organization [facility] Address [facility] [place] [address] Care Team Providers Care Wastewater Treatment Engineer Name Role Phone Halina Orantes MD Unavailable Destini Kent(Hist) Primary Care Provider Unavail able Destiney Martins (Rn) RN Unavailable Janine Carter RN Unavailable [phone] Cory Lang MD Unavailable [phone] Katelyn Oneal PA-C Unavailable [phone] Elayne Bishop CNP Primary Care Provider [phone] Ochoa Oden MD Unavailable [phone] Tc Senior APRN Unavailable [phone] Source Comments In the event this information is protected by the Federal Confidentiality of Alcohol and Drug AbusePatient Records regulations: The Federal rules restrict any use of the information to criminally investigate or prosecute any alcohol or drug abuse patient.[facility] Encounter Details Date Type Department Care Team (Late st Contact Info) Description 08/22/2019 Patient Msg Hematology [address] [place], [place] [phone] Provider, Wei RE: Appointment Cancellation Request Social [...] 08/02/2025 10:30 AM EDT Office Visit Cardiology [address] [place] [address] [place] [address] [facility] [place] [address] SOB 11/05/2025 7:15 AM EST Office Visit Cardiology [address] [place] [address] Dx: Palpitation [R00.2] 11/05/2025 7:30 AM EST Procedure Cardiology [address] [place] [address] Dx: Palpitation [R00.2] 11/05/2025 8:15 AM EST Office Visit Preventive Cardiology [address] [place] [address] Brayan Leonardo MD 9500 [facility] [address] [place] [address] Dx: Palpitation [R00.2] 12/31/2025 1:45 PM EDT Office Visit [facility] [place] [facility] [address] [place] [address] 6 month follow up with lab 12/31/2025 2:00 PM EDT Visit (SP) Office Hematology/Oncolog y [address] [address] Katelyn Oneal, PA-C [address] [place] [address] 6 month follow up with lab documented as of this encounter Visit Diagnoses Not on filedocumented in this encounter Care Teams Wastewater Treatment Engineer Relationship Specialty Start Date End Date Destini Kent(Hist) PCP - General 07/13/19 02/08/23 Elayne Bishop CNP [address] [place] [address] PCP - General 02/09/23 [place] [address] [place] [address] Consulting Hematology/Oncology 06/27/19 Dest[place]y [place] ([place]), [place] [address] [place] [address] Department Hematology/Oncology 07/16/19 Janine Carter, RN [address] [address] Department Hematology/Oncology 08/15/19 02/01/24 Cory Lang MD [address] [place] [address] [place] [address] Physician Hematology/Oncology 08/15/19 06/19/24 Katelyn Oneal, PA-C [address] [place] [address] [place] [address] Physician County Health Officer Hematology/Oncology 08/15/19 Ochoa Oden MD [address] [place] [address] [place] [address] Physician Hematology/Oncology 06/20/24 Tc Senior APRN [address] [place] [address] Referring 04/10/25 documented as of this encounter
--- OUTSIDE RECORDS SUMMARY | 2025-07-11 18:20 | XMS_ITS | Encounter Summary ---
Author Organization [facility] Address [facility] [place] [address] Care Team Providers Care Pin Drafter Operator Name Role Phone Halina Orantes MD Unavailable Destiney Martins (Rn) RN Unavailable Katelyn Oneal PA-C Unavailable [phone] Elayne Bishop CNP Primary Care Provider [phone] Ochoa Oden MD Unavailable [phone] Tc Senior APRN Unavailable [phone] Source Comments In the event this information is protected by the Federal Confidentiality of Alcohol and Drug AbusePatient Records regulations: The Federal rules restrict any use of the information to criminally investigate or prosecute any alcohol or drug abuse patient.[facility] Encounter Details Date Type Department Care Team (Late st Contact Info) Description 04/10/2025 GI Preprocedure Call [facility] [address] [place] [address] Yanni Ash Elle Coughlin, DO [address] [place] [address] Social History Tobacco Use Types Packs/Day Years [...] is lower risk 9 12/18/2024 Data from: https://www.neighborhoodatlas.[facility]/. Last address used for calculation [address] [place] [address] 12/18/2024 Comments No Sex and Gender Information Value Date Recorded Sex Assigned at Female 09/22/2021 7:14 AM EST Legal Sex Female 10:30 AM EDT Gender Identity Female 09/22/2021 7:14 AM EST Sexual Orientation Straight 09/22/2021 7 :14 AM EST documented as of this encounter [...] 08/02/2025 10:30 AM EDT Office Visit Cardiology [address] [place] [address] [place] [address] [facility] [place] [address] SOB 11/05/2025 7:15 AM EST Office Visit Cardiology [address] [place] [address] Dx: Palpitation [R00.2] 11/05/2025 7:30 AM EST Procedure Cardiology [address] [place] [address] Dx: Palpitation [R00.2] 11/05/2025 8:15 AM EST Office Visit Preventive Cardiology [address] [place] [address] Brayan Leonardo MD 9500 [facility] [address] [place] [address] Dx: Palpitation [R00.2] 12/31/2025 1:45 PM EDT Office Visit [facility] Laboratory [address] [address] 6 month follow up with lab 12/31/2025 2:00 PM EDT Visit (SP) Office Hematology/Oncolog y [address] [facility] [place] [address] Katelyn Oneal, PAFransicoC [address] [place] [address] 6 month follow up with lab documented as of this encounter Visit Diagnoses Not on filedocumented in this encounter Care Teams Pin Drafter Operator Relationship Specialty Start Date End Date Elayne Bishop CNP [address] [place] [address] PCP - General 02/09/23 [place] [address] [place] [address] Consulting Hematology/Oncology 06/27/19 Destiney [place] ([place] [address] [place] [address] Specialty Vending Technician Hematology/Oncology 07/16/19 Katelyn Oneal PA-C [address] [facility] [address] Physician Automatic Hemmer Hematology/Oncology 08/15/19 Ochoa Oden MD [address] [place] [address] Physician Hematology/Oncology 06/20/24 Tc Senior APRN [address] [place] [address] Referring 04/10/25 documented as of this encounter
--- OUTSIDE RECORDS SUMMARY | 2025-07-11 18:20 | XMS_ITS | Encounter Summary ---
Author Organization [facility] Address [facility] [place] [address] Care Team Providers Care Repair Electric Motor Assembler Name Role Phone Halina Orantes MD Unavailable Destiney Martins (Rn) RN Unavailable Janine Carter RN Unavailable [phone] Cory Lang MD Unavailable [phone] Katelyn Oneal PA-C Unavailable [phone] Elayne Bishop CNP Primary Care Provider [phone] Ochoa Oden MD Unavailable [phone] Tc Senior APRN Unavailable [phone] Source Comments In the event this information is protected by the Federal Confidentiality of Alcohol and Drug AbusePatient Records regulations: The Federal rules restrict any use of the information to criminally investigate or prosecute any alcohol or drug abuse patient.[facility] Encounter Details Date Type Department Care Team (Late st Contact Info) Description 06/20/2023 GI Preprocedure Call Ambulatory Surgery 5700 [place], [place] [phone] Ash Liao Jr., DO [address] [facility] [address] [place] [address] Social History Tobacco Use Types [...] is lower risk 9 03/09/2023 Data from: https://www.neighborhoodatlas.medicine.[facility]/. Last address used for calculation [address] 03/09/2023 Comments No Sex and Gender [...] 08/02/2025 10:30 AM EDT Office Visit Cardiology [address] [place] [address] [place] [address] [facility] [place] [address] SOB 11/05/2025 7:15 AM EST Office Visit Cardiology [address] [place] [address] Dx: Palpitation [R00.2] 11/05/2025 7:30 AM EST Procedure Cardiology [address] [place] [address] Dx: Palpitation [R00.2] 11/05/2025 8:15 AM EST Office Visit Preventive Cardiology [address] [place] [address] Brayan Leonardo MD 9500 [facility] [address] [place] [address] Dx: Palpitation [R00.2] 12/31/2025 1:45 PM EDT Office Visit [facility] [place] [facility] [address] [facility] [place] [address] 6 month follow up with lab 12/31/2025 2:00 PM EDT Visit (SP) Office Hematology/Oncolog y [address] [place] [address] Katelyn Oneal, PA-C [address] [facility] [place] [place] [address] 6 month follow up with lab documented as of this encounter Visit Diagnoses Not on filedocumented in this encounter Care Teams Repair Electric Motor Assembler Relationship Specialty Start Date End Date Elayne Bishop CNP [address] [place] [address] PCP - General 02/09/23 [place] [address] [place] [address] Consulting Hematology/Oncology 06/27/19 [place]iney [place] ([place]), [place] [address] [place] [address] Specialty Thread Marker Hematology/Oncology 07/16/19 Janine Carter, RN [address] [facility] [place] [address] Specialty Thread Marker Hematology/Oncology 08/15/19 02/01/24 Cory Lang MD [address] [facility] [place] [address] Physician Hematology/Oncology 08/15/19 06/19/24 Katelyn Oneal PAFransicoC [address] [facility] [place] [address] Physician Riveter Hand Hematology/Oncology 08/15/19 Ochoa Oden MD [address] [facility] [place] [address] Physician Hematology/Oncology 06/20/24 Tc Senior APRN [address] [place] [address] Referring 04/10/25 documented as of this encounter
--- OUTSIDE RECORDS SUMMARY | 2025-07-11 18:20 | XMS_ITS | Encounter Summary ---
Author Organization [facility] Address [facility] [place] [address] Care Team Providers Care Anger Control Counselor Name Role Phone Halina Orantes MD Unavailable Destiney Martins (Rn) RN Unavailable Janine Carter RN Unavailable [phone] Cory Lang MD Unavailable [phone] Katelyn Oneal PA-C Unavailable [phone] Elayne Bishop CNP Primary Care Provider [phone] Ochoa Oden MD Unavailable [phone] Tc Senior APRN Unavailable [phone] Source Comments In the event this information is protected by the Federal Confidentiality of Alcohol and Drug AbusePatient Records regulations: The Federal rules restrict any use of the information to criminally investigate or prosecute any alcohol or drug abuse patient.[facility] Encounter Details Date Type Department Care Team (Late st Contact Info) Description 12/01/2023 Patient Msg Family Medicine [facility] [address] [place] [address] Provider, Wei 01/19 Appointment Social History Tobacco Use Types Packs/Day Years [...] is lower risk 9 03/09/2023 Data from: https://www.neighborhoodatlas.medicine.[facility].edu/. Last address used for calculation [address] 03/09/2023 Comments No Sex and Gender [...] 08/02/2025 10:30 AM EDT Office Visit Cardiology [address] [place] [address] [place] [address] [facility] [place] [address] SOB 11/05/2025 7:15 AM EST Office Visit Cardiology [address] [place] [address] Dx: Palpitation [R00.2] 11/05/2025 7:30 AM EST Procedure Cardiology [address] [place] [address] Dx: Palpitation [R00.2] 11/05/2025 8:15 AM EST Office Visit Preventive Cardiology [address] [place] [address] Brayan Leonardo MD 9500 [facility] [address] [place] [address] Dx: Palpitation [R00.2] 12/31/2025 1:45 PM EDT Office Visit [facility] [address] [place] [address] 6 month follow up with lab 12/31/2025 2:00 PM EDT Visit (SP) Office Hematology/Oncolog y [address] [place] [address] Katelyn Oneal PAFransicoC [address] [place] [address] 6 month follow up with lab documented as of this encounter Visit Diagnoses Not on filedocumented in this encounter Care Teams Anger Control Counselor Relationship Specialty Start Date End Date Elayne BishopTUCKER [address] [place] [address] PCP - General 02/09/23 [place] [address] [place] [address] Consulting Hematology/Oncology 06/27/19 Destiney [place]ins ([place] [address] [place] [address] Specialty Die Casting Machine Setter Hematology/Oncology 07/16/19 Janine Carter, RN [address] [place] [address] Specialty Die Casting Machine Setter Hematology/Oncology 08/15/19 02/01/24 Cory Lang MD [address] [place] [address] [place] [address] Physician Hematology/Oncology 08/15/19 06/19/24 Katelyn Oneal PA-C [address] [place] [address] [place] [address] Physician Strain Technician Hematology/Oncology 08/15/19 Ochoa Oden MD [address] [place] [address] [place] [address] Physician Hematology/Oncology 06/20/24 Tc Senior APRN [address] [place] [address] Referring 04/10/25 documented as of this encounter
--- OUTSIDE RECORDS SUMMARY | 2025-07-11 18:20 | XMS_ITS | Encounter Summary ---
Author Organization [facility] Address [facility] [place] [address] Care Team Providers Care Fish Inspector Name Role Phone Halina Orantes MD Unavailable Destiney Martins (Rn) RN Unavailable [phone] Janine Carter RN Unavailable [phone] Cory Lang MD Unavailable [phone] Katelyn Oneal PA-C Unavailable [phone] Elayne Bishop CNP Primary Care Provider [phone] Ochoa Oden MD Unavailable [phone] Tc Senior APRN Unavailable [phone] Source Comments In the event this information is protected by the Federal Confidentiality of Alcohol and Drug AbusePatient Records regulations: The Federal rules restrict any use of the information to criminally investigate or prosecute any alcohol or drug abuse patient.[facility] Encounter Details Date Type Department Care Team (Late st Contact Info) Description 08/27/2023 Patient Msg Hematology/Oncology [address] [place] [address] Cory Lang MD [address] [facility] [place] [address] Appointment Cancellation Request Social History Tobacco Use [...] is lower risk 9 03/09/2023 Data from: https://www.neighborhoodatlas.medicine.[facility]/. Last address used for calculation [address] 03/09/2023 Comments No Sex and Gender [...] 08/02/2025 10:30 AM EDT Office Visit Cardiology [address] [place] [address] [place] [address] [facility] [place] [address] SOB 11/05/2025 7:15 AM EST Office Visit Cardiology [address] [place] [address] Dx: Palpitation [R00.2] 11/05/2025 7:30 AM EST Procedure Cardiology [address] [place] [address] Dx: Palpitation [R00.2] 11/05/2025 8:15 AM EST Office Visit Preventive Cardiology [address] [place] [address] Brayan Leonardo MD [facility] [address] [place] [address] Dx: Palpitation [R00.2] 12/31/2025 1:45 PM EDT Office Visit [facility] [address] [place] [address] 6 month follow up with lab 12/31/2025 2:00 PM EDT Visit (SP) Office Hematology/Oncolog y [address] [facility] [place] [address] Katelyn Oneal, PA-C [address] [place] [address] 6 month follow up with lab documented as of this encounter Visit Diagnoses Not on filedocumented in this encounter Care Teams Fish Inspector Relationship Specialty Start Date End Date Elayne Bishop CNP [address] [place] [address] PCP - General 02/09/23 [place] [address] [place] [address] Consulting Hematology/Oncology 06/27/19 [place] ([place] [address] [place] [address] Specialty Oral And Maxillofacial Surgery Resident Hematology/Oncology 07/16/19 Janine Carter RN [address] [facility] [place] [address] Specialty Oral And Maxillofacial Surgery Resident Hematology/Oncology 08/15/19 02/01/24 Cory Lang MD [address] [facility] [place] [address] Physician Hematology/Oncology 08/15/19 06/19/24 Katelyn Oneal, PA-C [address] [facility] [place] [address] Physician Storage Facility Rental Clerk Hematology/Oncology 08/15/19 Ochoa Oden MD [address] [facility] [place] [address] Physician Hematology/Oncology 06/20/24 Tc Senior APRN [address] [place] [address] Referring 04/10/25 documented as of this encounter
--- OUTSIDE RECORDS SUMMARY | 2025-07-11 18:20 | XMS_ITS | Clinical Summary ---
Author Organization [facility] Healthcare Address [address] [place] [address] Care Team Providers Care Tso Name Role Phone Unavailable Primary Care Provider Unavailabl e Social History Tobacco Use Types Packs/Day Years Used Date Smoking Tobacco: Never Assessed Comments Unknown Sex and Gender Information Value Date Recorded Sex Assigned at Not on file Legal Sex Female 7:33 PM EDT Gender Identity Not on file Sexual Orientation Not on file Last Filed Vital Signs Vital Sign Reading Time Taken Comments Blood Pressure 124/80 07/27/2023 11:21 AM EDT Pulse 75 07/27/2023 11:21 AM EDT Temperature - - Respiratory Rate 18 07/27/2023 11:21 AM EDT Oxygen Saturation 95% 07/27/2023 11:21 AM EDT Inhaled Oxygen Concentration - - Weight 113 kg (250 lb) 07/27/2023 11:21 AM EDT Height 167.6 cm (5' 6 ) 07/27/2023 11:21 AM EDT Body Mass Index 40.35 07/27/2023 11:21 AM EDT Plan of Treatment Not on file
--- OUTSIDE RECORDS SUMMARY | 2025-07-11 18:20 | XMS_ITS | Encounter Summary ---
Author Organization [facility] Address [facility] [place] [address] Care Team Providers Care Director Of Physician Practices Name Role Phone Halina Orantes MD Unavailable Destiney Martins (Rn) RN Unavailable Janine Carter RN Unavailable [phone] Cory Lagn MD Unavailable [phone] Katelyn Oneal PA-C Unavailable [phone] Elayne Bishop CNP Primary Care Provider [phone] Ochoa Oden MD Unavailable [phone] Tc Senior APRN Unavailable [phone] Source Comments In the event this information is protected by the Federal Confidentiality of Alcohol and Drug AbusePatient Records regulations: The Federal rules restrict any use of the information to criminally investigate or prosecute any alcohol or drug abuse patient.[facility] Encounter Details Date Type Department Care Team (Late st Contact Info) Description 02/18/2023 Patient Msg Gastroenterology [address] [place] [address] Provider, Ccf COLON/EGD Social History Tobacco Use Types Packs/Day Years [...] N ot on file 09/15/2020 Data from: https://www.neighborhoodatlas.medicine.[facility]/. Last address used for calculation Not on [...] 08/02/2025 10:30 AM EDT Office Visit Cardiology [address] [place] [address] [place] [address] [facility] [place] [address] SOB 11/05/2025 7:15 AM EST Office Visit Cardiology [address] [place] [address] Dx: Palpitation [R00.2] 11/05/2025 7:30 AM EST Procedure Cardiology [address] [place] [address] Dx: Palpitation [R00.2] 11/05/2025 8:15 AM EST Office Visit Preventive Cardiology [address] [place] [address] Brayan Leonardo MD 9500 [facility] [address] [place] [address] Dx: Palpitation [R00.2] 12/31/2025 1:45 PM EDT Office Visit [facility] [address] [facility] [address] 6 month follow up with lab 12/31/2025 2:00 PM EDT Visit (SP) Office Hematology/Oncolog y [address] [place] [address] Katelyn Oneal PAFransicoC [address] [place] [address] 6 month follow up with lab documented as of this encounter Visit Diagnoses Not on filedocumented in this encounter Care Teams Director Of Physician Practices Relationship Specialty Start Date End Date Elayne Bishop CNP [address] [place] [address] PCP - General 02/09/23 [place] [address] [place] [address] Consulting Hematology/Oncology 06/27/19 [place] [address] [place] [address] Specialty Hand Stitcher Hematology/Oncology 07/16/19 Janine Carter, RN [address] [facility] [place] [address] Specialty Hand Stitcher Hematology/Oncology 08/15/19 02/01/24 Cory Lang MD [address] [place] [address] [place] [address] Physician Hematology/Oncology 08/15/19 06/19/24 Katelyn Oneal PA-C [address] [facility] [place] [address] Physician Spice Grinder Hematology/Oncology 08/15/19 Ochoa Oden MD [address] [facility] [place] [address] Physician Hematology/Oncology 06/20/24 Tc Senior APRN [address] [place] [address] Referring 04/10/25 documented as of this encounter
--- OUTSIDE RECORDS SUMMARY | 2025-07-11 18:20 | XMS_ITS | Encounter Summary ---
Author Organization [facility] Address [facility] [place] [address] Care Team Providers Care Design Sales Consultant Name Role Phone Halina Orantes MD Unavailable Destini Kent(Hist) Primary Care Provider Unavail able Destiney Martins (Rn) RN Unavailable [phone] Janine Carter RN Unavailable [phone] Cory Lang MD Unavailable [phone] Katelyn Oneal PA-C Unavailable [phone] Elayne Bishop CNP Primary Care Provider [phone] Ochoa Oden MD Unavailable [phone] cT Senior APRN Unavailable [phone] Source Comments In the event this information is protected by the Federal Confidentiality of Alcohol and Drug AbusePatient Records regulations: The Federal rules restrict any use of the information to criminally investigate or prosecute any alcohol or drug abuse patient.[facility] Encounter Details Date Type Department Care Team (Late st Contact Info) Description 07/31/2019 Abstract Hematology [address] [place] [address] Marley Green V, RN Social History Tobacco Use Types Packs/Day Years [...] AM EST documented as of this encounter Plan of Treatment Upcoming Encounters Date Type Department Care Team (Late st Contact Info) Description 08/02/2025 10:30 AM EDT Office Visit Cardiology [address] [place] [address] [place] [address] [facility] [place] [address] SOB 11/05/2025 7:15 AM EST Office Visit Cardiology [address] [place] [address] Dx: Palpitation [R00.2] 11/05/2025 7:30 AM EST Procedure Cardiology [address] [place] [address] Dx: Palpitation [R00.2] 11/05/2025 8:15 AM EST Office Visit Preventive Cardiology [address] [place] [address] Brayan Leonardo MD 9500 [facility] [address] [place] [address] Dx: Palpitation [R00.2] 12/31/2025 1:45 PM EDT Office Visit [facility] Laboratory [address] [place] [address] [place] [address] 6 month follow up with lab 12/31/2025 2:00 PM EDT Visit (SP) Office Hematology/Oncolog y [address] [facility] [address] Katelyn Oneal PA-C [address] [place] [address] [place] [address] 6 month follow up with lab documented as of this encounter Visit Diagnoses Not on filedocumented in this encounter Care Teams Design Sales Consultant Relationship Specialty Start Date End Date Destini Kent(Hist) PCP - General 07/13/19 02/08/23 Elayne Bishop CNP [address] [place] [address] PCP - General 02/09/23 [place] [address] [place] [address] Consulting Hematology/Oncology 06/27/19 [place] [address] [place] [address] Specialty Slate Worker Hematology/Oncology 07/16/19 aJnine Carter RN [address] [facility] [address] Specialty Slate Worker Hematology/Oncology 08/15/19 02/01/24 Cory Lang MD [address] [place] [address] [place] [address] Physician Hematology/Oncology 08/15/19 06/19/24 Katelyn Oneal PA-C [address] [place] [address] [place] [address] Physician Superintendent Meters Hematology/Oncology 08/15/19 Ochoa Oden MD [address] [place] [address] [place] [address] Physician Hematology/Oncology 06/20/24 Tc Senior APRN [address] [place] [address] Referring 04/10/25 documented as of this encounter
--- OUTSIDE RECORDS SUMMARY | 2025-07-11 18:20 | XMS_ITS | Encounter Summary ---
Author Organization [facility] Address [facility] [place] [address] Care Team Providers Care Budget Coordinator Name Role Phone Halina Orantes MD Unavailable Destini Kent(Hist) Primary Care Provider Unavail able Destiney Martins (Rn) RN Unavailable Janine Carter RN Unavailable [phone] Cory Lang MD Unavailable [phone] Katelyn Oneal PA-C Unavailable [phone] Elayne Bishop CNP Primary Care Provider [phone] Ochoa Oden MD Unavailable [phone] Tc Senior APRN Unavailable [phone] Source Comments In the event this information is protected by the Federal Confidentiality of Alcohol and Drug AbusePatient Records regulations: The Federal rules restrict any use of the information to criminally investigate or prosecute any alcohol or drug abuse patient.[facility] Encounter Details Date Type Department Care Team (Late Contact Info) Description 11/15/2019 Patient Msg General Surgery [address] [place] [address] Provider, [facility] [address] [address] Begum Social History Tobacco Use Types Packs/Day Years [...] 08/02/2025 10:30 AM EDT Office Visit Cardiology [address] [place] [address] [place] [address] [facility] [place] [address] SOB 11/05/2025 7:15 AM EST Office Visit Cardiology [address] [place] [address] Dx: Palpitation [R00.2] 11/05/2025 7:30 AM EST Procedure Cardiology [address] [place] [address] Dx: Palpitation [R00.2] 11/05/2025 8:15 AM EST Office Visit Preventive Cardiology [address] [place] [address] Brayan Leonardo MD 9500 [facility] [address] [place] [address] Dx: Palpitation [R00.2] 12/31/2025 1:45 PM EDT Office Visit [facility] [address] [facility] [place] [address] 6 month follow up with lab 12/31/2025 2:00 PM EDT Visit (SP) Office Hematology/Oncolog y [address] [facility] [place] [address] Katelyn Oneal, PA-C [address] [facility] [place] [address] 6 month follow up with lab documented as of this encounter Visit Diagnoses Not on filedocumented in this encounter Care Teams Budget Coordinator Relationship Specialty Start Date End Date Destini Kent(Hist) PCP - General 07/13/19 02/08/23 Elayne Bishop CNP [address] [place] [address] PCP - General 02/09/23 [place] [address] [place] [address] Consulting Hematology/Oncology 06/27/19 [place] [address] [place] [address] Specialty Tank Truck Mechanic Hematology/Oncology 07/16/19 Janine Carter, RN [address] [facility] [place] [address] Specialty Tank Truck Mechanic Hematology/Oncology 08/15/19 02/01/24 Cory Lang MD [address] [place] [address] [place] [address] Physician Hematology/Oncology 08/15/19 06/19/24 Katelyn Oneal, PA-C [address] [place] [address] [place] [address] Physician Emissions Testing And Repair Technician Hematology/Oncology 08/15/19 Ochoa Oden MD [address] [place] [address] [place] [address] Physician Hematology/Oncology 06/20/24 Tc Senior APRN [address] [place] [address] Referring 04/10/25 documented as of this encounter
--- OUTSIDE RECORDS SUMMARY | 2025-07-11 18:20 | XMS_ITS | Encounter Summary ---
Author Organization [facility] Address [facility] [place] [address] Care Team Providers Care Patternmaker Helper Name Role Phone Halina Orantes MD Unavailable Destini Kent(Hist) Primary Care Provider Unavail able Destiney Martins (Rn) RN Unavailable Janine Carter RN Unavailable [phone] Cory Lang MD Unavailable [phone] Katelyn Oneal PA-C Unavailable [phone] Elayne Bishop CNP Primary Care Provider [phone] Ochoa Oden MD Unavailable [phone] Tc Senior APRN Unavailable [phone] Source Comments In the event this information is protected by the Federal Confidentiality of Alcohol and Drug AbusePatient Records regulations: The Federal rules restrict any use of the information to criminally investigate or prosecute any alcohol or drug abuse patient.[facility] Encounter Details Date Type Department Care Team (Latest Contact Info) Description 10/23/2019 H&P External-NonCCF Provider, External, PAFransicoC Do not enter address information under generic [...] 08/02/2025 10:30 AM EDT Office Visit Cardiology [address] [facility] [place] [address] [place] [address] [facility] [address] SOB 11/05/2025 7:15 AM EST Office Visit Cardiology [address] [place] [address] Dx: Palpitation [R00.2] 11/05/2025 7:30 AM EST Procedure Cardiology [address] [place] [address] Dx: Palpitation [R00.2] 11/05/2025 8:15 AM EST Office Visit Preventive Cardiology [address] [place] [address] Brayan Leonardo MD 9500 [facility] [address] [place] [address] Dx: Palpitation [R00.2] 12/31/2025 1:45 PM EDT Office Visit [facility] [address] [facility] [place] [address] 6 month follow up with lab 12/31/2025 2:00 PM EDT Visit (SP) Office Hematology/Oncolog y [address] [facility] [place] [place] [address] Katelyn Oneal, PA-C [address] [facility] [place] [place] [address] 6 month follow up with lab documented as of this encounter Visit Diagnoses Not on filedocumented in this encounter Care Teams Patternmaker Helper Relationship Specialty Start Date End Date Destini Kent(Hist) PCP - General 07/13/19 02/08/23 Elayne Bishop CNP [address] [place] [address] PCP - General 02/09/23 [place] [address] [facility] [address] Consulting Hematology/Oncology 06/27/19 Destiney [place] ([place]), [place] [address] [place] [address] Specialty Hammer Fitter Hematology/Oncology 07/16/19 Janine Carter RN [address] [facility] [place] [address] Specialty Hammer Fitter Hematology/Oncology 08/15/19 02/01/24 Cory Lang MD [address] [facility] [place] [address] Physician Hematology/Oncology 08/15/19 06/19/24 Katelyn Oneal, PA-C [address] [facility] [place] [address] Physician Chart Reader Hematology/Oncology 08/15/19 Ochoa Oden MD [address] [facility] [place] [address] Physician Hematology/Oncology 06/20/24 Tc Senior APRN [address] [place] [address] Referring 04/10/25 documented as of this encounter
--- OUTSIDE RECORDS SUMMARY | 2025-07-11 18:21 | XMS_ITS | Encounter Summary ---
Author Organization [facility] Address [facility] [place] [address] Care Team Providers Care Panelbeater Name Role Phone Halina Orantes MD Unavailable Destini Kent(Hist) Primary Care Provider Unavail able Destiney Martins (Rn) RN Unavailable [phone] Janine Carter RN Unavailable [phone] Cory Lang MD Unavailable [phone] Katelyn Oneal PA-C Unavailable [phone] Elayne Bsihop CNP Primary Care Provider [phone] Ochoa Oden MD Unavailable [phone] Tc Senior APRN Unavailable [phone] Source Comments In the event this information is protected by the Federal Confidentiality of Alcohol and Drug AbusePatient Records regulations: The Federal rules restrict any use of the information to criminally investigate or prosecute any alcohol or drug abuse patient.[facility] Encounter Details Date Type Department Care Team (Late st Contact Info) Description 07/21/2020 Get Medical Advice [facility] [address] [place] [address] [place] [address] [place] [address] RE: Non-Urgent Medical Question Social History Tobacco Use Types Packs/Day Years Used Date Smoking Tobacco: Former Cigarettes 0.5 20 1 988 - 2007 Smokeless Tobacco: Never Alcohol Use Standard Drinks/Week Comments Not Currently 0 (1 standard drink = 0.6 oz pur e alcohol) PHQ-2 Answer Date Recorded PHQ-2 score 0 06/10/2020 Comments No Sex and Gender Information Value [...] have Coronavirus / COVID-19? No / Unsure 07/22/2020 9:25 AM EDT documented as of this encounter Functional [...] of Assessment Author No 08/02/2019 3:47 PM MAUYRT Ab taco Ray RN * Because of [...] 08/02/2025 10:30 AM EDT Office Visit Cardiology [address] [place] [address] [place] [address] [facility] [place] [address] SOB 11/05/2025 7:15 AM EST Office Visit Cardiology [address] [place] [address] Dx: Palpitation [R00.2] 11/05/2025 7:30 AM EST Procedure Cardiology [address] [place] [address] Dx: Palpitation [R00.2] 11/05/2025 8:15 AM EST Office Visit Preventive Cardiology [address] [place] [address] Brayan Leonardo MD [address] [facility] [address] [place] [address] Dx: Palpitation [R00.2] 12/31/2025 1:45 PM EDT Office Visit [facility] [address] [place] [address] 6 month follow up with lab 12/31/2025 2:00 PM EDT Visit (SP) Office Hematology/Oncolog y [address] [place] [address] Katelyn Oneal PAFransicoC [address] [place] [address] 6 month follow up with lab documented as of this encounter Visit Diagnoses Not on filedocumented in this encounter Care Teams Panelbeater Relationship Specialty Start Date End Date Destini Kent(Hist) PCP - General 07/13/19 02/08/23 Elayne Bishop CNP [address] [place] [address] PCP - General 02/09/23 [place] [address] [place] [address] Consulting Hematology/Oncology 06/27/19 [place]iney [place] ([place]), [place] [address] [place] [address] Specialty Rubber Grinder Hematology/Oncology 07/16/19 Janine Carter, RN [address] [facility] [place] [address] Specialty Rubber Grinder Hematology/Oncology 08/15/19 02/01/24 Cory Lang MD [address] [facility] [place] [address] Physician Hematology/Oncology 08/15/19 06/19/24 Katelyn Oneal PAFransicoC [address] [facility] [place] [address] Physician Radiation Oncology Manager Hematology/Oncology 08/15/19 Ochoa Oden MD [address] [facility] [place] [address] Physician Hematology/Oncology 06/20/24 Tc Senior APRN [address] [place] [address] Referring 04/10/25 documented as of this encounter
--- OUTSIDE RECORDS SUMMARY | 2025-07-11 18:21 | XMS_ITS | Encounter Summary ---
Author Organization [facility] Address [facility] [place] [address] Care Team Providers Care Guide Travel Name Role Phone Halina Orantes MD Unavailable Destini Kent(Hist) Primary Care Provider Unavail able Destiney Martins (Rn) RN Unavailable [phone] Janine Carter RN Unavailable [phone] Cory Lang MD Unavailable [phone] Katelyn Oneal PA-C Unavailable [phone] Elayne Bishop CNP Primary Care Provider [phone] Ochoa Oden MD Unavailable [phone] Tc Senior APRN Unavailable [phone] Source Comments In the event this information is protected by the Federal Confidentiality of Alcohol and Drug AbusePatient Records regulations: The Federal rules restrict any use of the information to criminally investigate or prosecute any alcohol or drug abuse patient.[facility] Encounter Details Date Type Department Care Team (Late st Contact Info) Description 08/27/2020 Patient Msg Radiation Oncology [address] [address] Jordi Soto MD [address] [facility] [address] RE: Appointment Cancellation Request Social History Tobacco [...] or suspected to have Coronavirus / COVID-19? Unable to assess 08/27/2020 8:08 AM EST documented as of this encounter [...] 08/02/2025 10:30 AM EDT Office Visit Cardiology [address] [place] [address] [place] [address] [facility] [place] [address] SOB 11/05/2025 7:15 AM EST Office Visit Cardiology [address] [place] [address] Dx: Palpitation [R00.2] 11/05/2025 7:30 AM EST Procedure Cardiology [address] [place] [address] Dx: Palpitation [R00.2] 11/05/2025 8:15 AM EST Office Visit Preventive Cardiology [address] [place] [address] Brayan Leonardo MD [facility] [facility] [address] [place] [address] Dx: Palpitation [R00.2] 12/31/2025 1:45 PM EDT Office Visit [facility] [address] [facility] [place] [address] 6 month follow up with lab 12/31/2025 2:00 PM EDT Visit (SP) Office Hematology/Oncolog y [address] [facility] [facility] [address] Katelyn Oneal, PAFransicoC [address] [facility] [address] [place] [address] 6 month follow up with lab documented as of this encounter Visit Diagnoses Not on filedocumented in this encounter Care Teams Guide Travel Relationship Specialty Start Date End Date Destini Kent(Hist) PCP - General 07/13/19 02/08/23 Elayne Bishop CNP [address] [place] [address] PCP - General 02/09/23 [place] [address] [place] [address] Consulting Hematology/Oncology 06/27/19 [place]y [place] [address] [place] [address] Specialty Product Safety Officer Hematology/Oncology 07/16/19 Janine Carter RN [address] [facility] [place] [address] Specialty Product Safety Officer Hematology/Oncology 08/15/19 02/01/24 Cory Lang MD [address] [place] [address] [place] [address] Physician Hematology/Oncology 08/15/19 06/19/24 Katelyn Oneal, PA-C [address] [facility] [place] [address] Physician Pilot Plant Supervisor Hematology/Oncology 08/15/19 Ochoa Oden MD [address] [facility] [place] [address] Physician Hematology/Oncology 06/20/24 Tc Senior APRN [address] [place] [address] Referring 04/10/25 documented as of this encounter
--- OUTSIDE RECORDS SUMMARY | 2025-07-11 18:21 | XMS_ITS | Encounter Summary ---
Author Organization [facility] Address [facility] [place] [address] Care Team Providers Care Crop Nutrition Scientist Name Role Phone Halina Orantes MD Unavailable Destini Kent(Hist) Primary Care Provider Unavail able Destiney Martins (Rn) RN Unavailable [phone] Janine Carter RN Unavailable [phone] Cory Lang MD Unavailable [phone] Katelyn Oneal PA-C Unavailable [phone] Elayne Bishop CNP Primary Care Provider [phone] Ochoa Oden MD Unavailable [phone] Tc Senior APRN Unavailable [phone] Source Comments In the event this information is protected by the Federal Confidentiality of Alcohol and Drug AbusePatient Records regulations: The Federal rules restrict any use of the information to criminally investigate or prosecute any alcohol or drug abuse patient.[facility] Encounter Details Date Type Department Care Team (Late st Contact Info) Description 09/22/2021 Patient Msg Hematology/Oncology [address] [place] [address] Cory Lang MD [address] [facility] [place] [address] Request an Appointment Social History Tobacco Use Types Packs/Day Years Used Date Smoking Tobacco: Former Cigarettes 0.5 20 1 988 - 2007 Smokeless Tobacco: Never Alcohol Use Standard Drinks/Week Comments Not Currently 0 (1 standard drink = 0.6 oz pur e alcohol) PHQ-2 Answer Date Recorded PHQ-2 score 0 01/26/2021 Area Deprivation Index Answer Date Jhonny rded National Score (1-100), lower number is lower ri sk Not on file 09/15/2020 State Score (1-10), lower number is lower risk N ot on file 09/15/2020 Data from: https://www.neighborhoodatlas.medicine.[facility]/. Last address used for calculation Not on [...] 08/02/2025 10:30 AM EDT Office Visit Cardiology [address] [place] [address] [place] [address] [facility] [place] [address] SOB 11/05/2025 7:15 AM EST Office Visit Cardiology [address] [place] [address] Dx: Palpitation [R00.2] 11/05/2025 7:30 AM EST Procedure Cardiology [address] [place] [address] Dx: Palpitation [R00.2] 11/05/2025 8:15 AM EST Office Visit Preventive Cardiology [address] [place] [address] Brayan Leonardo MD [address] [facility] [address] [place] [address] Dx: Palpitation [R00.2] 12/31/2025 1:45 PM EDT Office Visit [facility] [address] [place] [address] 6 month follow up with lab 12/31/2025 2:00 PM EDT Visit (SP) Office Hematology/Oncolog y [address] [place] [address] Katelyn Oneal, PA-C [address] [place] [address] 6 month follow up with lab documented as of this encounter Visit Diagnoses Not on filedocumented in this encounter Care Teams Crop Nutrition Scientist Relationship Specialty Start Date End Date Destini Kent(Hist) PCP - General 07/13/19 02/08/23 Elayne Bishop CNP [address] [place] [address] PCP - General 02/09/23 [place] [address] [place] [address] Consulting Hematology/Oncology 06/27/19 [place] ([place]), [place] [address] [place] [address] Specialty Ore Miner Hematology/Oncology 07/16/19 Janine Carter RN [address] [place] [address] [place] [address] Specialty Ore Miner Hematology/Oncology 08/15/19 02/01/24 Cory Lang MD [address] [place] [address] [place] [address] Physician Hematology/Oncology 08/15/19 06/19/24 Katelyn Oneal PA-C [address] [place] [address] [place] [address] Physician Floating Operator Hematology/Oncology 08/15/19 Ochoa Oden MD [address] [place] [address] [place] [address] Physician Hematology/Oncology 06/20/24 Tc Senior APRN [address] [place] [address] Referring 7/2/25 documented as of this encounter
--- OUTSIDE RECORDS SUMMARY | 2025-07-11 18:21 | XMS_ITS | Encounter Summary ---
Author Organization [facility] Address [facility] [place] [address] Care Team Providers Care Filter Pulp Washer Name Role Phone Halina Orantes MD Unavailable Destini Kent(Hist) Primary Care Provider Unavail able Destiney Martins (Rn) RN Unavailable [phone] Janine Carter RN Unavailable [phone] Cory Lang MD Unavailable [phone] Katelyn Oneal PA-C Unavailable [phone] Elayne Bishop CNP Primary Care Provider [phone] Ochoa Oden MD Unavailable [phone] Tc Senior APRN Unavailable [phone] Source Comments In the event this information is protected by the Federal Confidentiality of Alcohol and Drug AbusePatient Records regulations: The Federal rules restrict any use of the information to criminally investigate or prosecute any alcohol or drug abuse patient.[facility] Encounter Details Date Type Department Care Team (Late st Contact Info) Description 08/30/2020 Patient Msg Hematology/Oncology [address] [facility] [place] [address] Cory Lang MD [address] [facility] [place] [address] RE: Appointment Cancellation Request Social History Tobacco [...] Assessment Author No 08/02/2019 3:47 PM EDT Alex Ray RN documented as of this [...] 08/02/2025 10:30 AM EDT Office Visit Cardiology [address] [place] [address] [place] [address] [facility] [place] [address] SOB 11/05/2025 7:15 AM EST Office Visit Cardiology [address] [place] [address] Dx: Palpitation [R00.2] 11/05/2025 7:30 AM EST Procedure Cardiology [address] [place] [address] Dx: Palpitation [R00.2] 11/05/2025 8:15 AM EST Office Visit Preventive Cardiology [address] [place] [address] Brayan Leonardo MD [address] [facility] [address] [place] [address] Dx: Palpitation [R00.2] 12/31/2025 1:45 PM EDT Office Visit [facility] [address] [place] [address] 6 month follow up with lab 12/31/2025 2:00 PM EDT Visit (SP) Office Hematology/Oncolog y [address] [place] [address] Katelyn Oneal, PAFransicoC [address] [place] [address] 6 month follow up with lab documented as of this encounter Visit Diagnoses Not on filedocumented in this encounter Care Teams Filter Pulp Washer Relationship Specialty Start Date End Date Destini Kent(Hist) PCP - General 07/13/19 02/08/23 Elayne Bishop CNP [address] [place] [address] PCP - General 02/09/23 [place] [address] [place] [address] Consulting Hematology/Oncology 06/27/19 [place] ([place]), [place] [address] [place] [address] Specialty Sem Manager Hematology/Oncology 07/16/19 Janine Carter RN [address] [facility] [place] [address] Specialty Sem Manager Hematology/Oncology 08/15/19 02/01/24 Cory Lang MD [address] [facility] [place] [address] Physician Hematology/Oncology 08/15/19 06/19/24 Katelyn Oneal, PA-C [address] [facility] [place] [address] Physician Box Printing Machine Operator Hematology/Oncology 08/15/19 Ochoa Oden MD [address] [facility] [place] [address] Physician Hematology/Oncology 06/20/24 Tc Senior APRN [address] [place] [address] Referring 04/10/25 documented as of this encounter
--- OUTSIDE RECORDS SUMMARY | 2025-07-11 18:21 | XMS_ITS | Encounter Summary ---
Author Organization [facility] Address [facility] [place] [address] Care Team Providers Care Kettle Cleaner Name Role Phone Halina Orantes MD Unavailable Destini Kent(Hist) Primary Care Provider Unavail able Destiney Martins (Rn) RN Unavailable [phone] Janine Carter RN Unavailable [phone] Cory Lang MD Unavailable [phone] Katelyn Oneal PA-C Unavailable [phone] Elayne Bishop CNP Primary Care Provider [phone] Ochoa Oden MD Unavailable [phone] Tc Senior APRN Unavailable [phone] Source Comments In the event this information is protected by the Federal Confidentiality of Alcohol and Drug AbusePatient Records regulations: The Federal rules restrict any use of the information to criminally investigate or prosecute any alcohol or drug abuse patient.[facility] Encounter Details Date Type Department Care Team (Late st Contact Info) Description 05/22/2021 Patient Msg Hematology/Oncology [address] [facility] [place] [address] Katelyn Oneal PA-C [address] [facility] [place] [address] RE: Appointment Cancellation Request Social History Tobacco [...] N ot on file 09/15/2020 Data from: https://www.neighborhoodatlas.medicine.[facility]/. Last address used for calculation Not [...] 08/02/2025 10:30 AM EDT Office Visit Cardiology [address] [place] [address] [place] [address] [facility] [place] [address] SOB 11/05/2025 7:15 AM EST Office Visit Cardiology [address] [place] [address] Dx: Palpitation [R00.2] 11/05/2025 7:30 AM EST Procedure Cardiology [address] [place] [address] Dx: Palpitation [R00.2] 11/05/2025 8:15 AM EST Office Visit Preventive Cardiology [address] [place] [address] Brayan Leonardo MD [address] [facility] [address] [place] [address] Dx: Palpitation [R00.2] 12/31/2025 1:45 PM EDT Office Visit [facility] [place] [facility] [address] [place] [address] 6 month follow up with lab 12/31/2025 2:00 PM EDT Visit (SP) Office Hematology/Oncolog y [address] [place] [address] Katelyn Oneal, PA-C [address] [place] [address] 6 month follow up with lab documented as of this encounter Visit Diagnoses Not on filedocumented in this encounter Care Teams Kettle Cleaner Relationship Specialty Start Date End Date Destini Kent(Hist) PCP - General 07/13/19 02/08/23 Elayne Bishop CNP [address] [place] [address] PCP - General 02/09/23 [place] [address] [place] [address] Consulting Hematology/Oncology 06/27/19 [place]iney [place] ([place]), [place] [address] [place] [address] Specialty Reading Efficiency Course Director Hematology/Oncology 07/16/19 Janine Carter RN [address] [place] [address] [place] [address] Specialty Reading Efficiency Course Director Hematology/Oncology 08/15/19 02/01/24 Cory Lang MD [address] [place] [address] [place] [address] Physician Hematology/Oncology 08/15/19 06/19/24 Katelyn Oneal, PA-C [address] [place] [address] [place] [address] Physician Bus Van Driver Hematology/Oncology 08/15/19 Ochoa Oden MD [address] [place] [address] [place] [address] Physician Hematology/Oncology 06/20/24 Tc Senior APRN [address] [place] [address] Referring 04/10/25 documented as of this encounter
--- OUTSIDE RECORDS SUMMARY | 2025-07-11 18:21 | XMS_ITS | Clinical Summary ---
Author Organization [facility] Address [facility] [place] [address] Care Team Providers Care Night Order Selector Name Role Phone Halina Rodriguez MD Unavailable Destiney Martins (Rn) RN Unavailable Katelyn Oneal PA-C Unavailable Elayne Bishop CNP Primary Care Provider Ochoa Oden MD Unavailable Tc Senior APRN Unavailable Allergies No known active allergies Medications insulin glargine 100 unit/mL (3 mL) Inject 20 Units subcutaneously daily at bedtime. Active Albuterol Sulfate 0.63 mg/3 mL nebulizer solution Inhale as instructed. Active insulin lispro (HUMALOG PEN SUBCUTANEOUS) Inject subcutaneously as directed. Active semaglutide (OZEMPIC) 2 mg/dose (8 mg/3 mL) pen injector 3 Active ondansetron (ZOFRAN) 4 mg tablet 1 TAB EVERY 6 HRS NEEDED 60 tablet 1 3 Active RABEprazole (ACIPHEX) 20 mg tabletIndicati ons:Peptic ulcer disease Take 1 tablet by mouth two times a day. 60 tablet 3 5 025 Active DEXCOM G6 SENSOR nae 5 Active losartan-hydro CHLOROthiazide (HYZAAR) 50-12.5 mg per tablet Take by mouth. 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 D/c naproxen Bmp in 5 days --- f/u with pcp Assessment & Plan (08/01/2019 3:33 PM EDT): Cr 1.3 > 1.56 Likely sec to low BP/ infection ivf Hold indapamide and losartan Avoid nephrotoxic agents Monitor closely Essential hypertension 07/31/2019 Assessment & Plan (12/05/2019 10:39 AM EST): Assessment: controlled on Losartan BP 147/71 Assessment & Plan (08/02/2019 2:39 PM EDT): PLAN: Hold indapamide and losartan for today and monitor --- restart at d/c Monitor BP/HR Assessment & Plan (08/01/2019 3:32 PM EDT): Assessment: Bp borderline low PLAN: Hold indapamide and losartan for today and monitor Monitor BP/HR Assessment & Plan (07/31/2019 8:35 PM EDT): Assessment: Currently controlled PLAN: Continue home meds Monitor BP/HR Insulin dependent diabetes mellitus 07/31/2019 Assessment & Plan (12/06/2019 7:17 AM EST): Assessment: On metformin and Lantus- states BG 130-150 in Am Last A1c 6.2% Assessment & Plan (08/02/2019 2:40 PM EDT): Assessment: Chronic PLAN: Obtain A1C Hold home oral hypoglycemics while inpatient-- restart at d/c Consider taking the pt off metformin if Cr > 1.5 Continue home meds: Lantus 20units Nightly Assessment & Plan (07/31/2019 9:20 PM EDT): Assessment: Chronic PLAN: Obtain A1C Hold home oral hypoglycemics while inpatient Continue home meds: Lantus 20units Nightly ISS Pseudomonas infection 07/31/2019 Assessment & Plan (08/02/2019 2:37 PM EDT): Assessment: Patient admitted for pseudomonas infection from mediport insertion site--- Wound cultures positive for pseudomonas Repeat blood cultures in the hospital negative Pt was on keflex and then bactrim ( started on 07/26 ) as outpt on: Zosyn in the hospital and switched to oral ciprofloxacin at d/c ID consulted-- appreciate input Vascular surgery consulted--- right mediport removed. Culture of tip pending at d/c Bmp in 5 days F/u with pcp in 1 week in [place] Assessment & Plan (08/01/2019 3:31 PM EDT): Assessment: Patient admitted for pseudomonas infection from mediport insertion site--- blood cultures positive per Dr rodriguez ---physician who requested direct admit. PLAN: Will obtain blood culture report from outpt facility --- [phone] Repeat blood cultures in the hospital negative so far Pt was on keflex and then bactrim as outpt Continue ABx: Zosyn ID consulted Vascular surgery consulted--- going to OR to remove por t Assessment & Plan (07/31/2019 9:04 PM EDT): Assessment: Patient admitted for pseudomonas infection from mediport insertion site PLAN: Obtain BCx from peripheral and mediport Continue ABx: Barbiesynila GONZALEZ consulted Vascular surgery consulted Malignant neoplasm of left breast 07/11/2019 Cancer Staging:Clinical:Stage IIB(cT2, cN0, cM0, G3, ER-, MO-, HER2-) - Signed by Cory Lang) on 08/13/2019 Assessment & Plan (08/02/2019 2:39 PM EDT): Assessment: Patient had Mediport placed (07/13/19) by Dr. Alicia Currently on neoadjuvant chemotherapy -- last treatment 07/11 Follows as outpatient with Dr. Rodriguez PLAN: Follow up as outpatient Assessment & Plan (08/01/2019 3:31 PM EDT): Assessment: Patient had Mediport placed (07/13/19) by Dr. Alicia Currently on neoadjuvant chemotherapy -- last treatment 07/11 Follows as outpatient with Dr. Rodriguez PLAN: Follow up as outpatient Assessment & Plan (07/31/2019 8:36 PM EDT): Assessment: Patient had Mediport placed (07/13/19) by Dr. Alicia Currently on neoadjuvant chemotherapy Follows as outpatient with Dr. Rodriguez PLAN: Follow up as outpatient SARMAD (obstructive sleep apnea) Assessment & Plan (12/05/2019 10:41 AM EST): Assessment: Does not uses CPAP Resolved Problems Problem Noted Date Diagnosed Date Resolved Date Peptic ulcer disease 06/27/2023 023 Encounters Date Type Department Care Team Description 07/09/2025 2:20 PM EDT Visit (SP) Office Hematology/Oncolog y [address] [place], [place] [address] [place] [address] Ochoa Oden MD History of breast cancer (Primary Dx); Fatty liver 07/09/2025 Travel 07/03/2025 Travel 05/01/2025 8:11 AM EDT - 05/01/2025 11:59 PM EDT Hospital Encounter Mammography [address] [id number] Discharge Disposition: Home 04/26/2025 Patient Msg HOSP MAIN H060 [address] [place] [address] Provider, [facility] Sign up to manage your digestive symptoms in between visits, covered by insurance 04/24/2025 Telephone Hematology/Oncolog y [address] [place], [place] [address] [place] [place] [address] Elba Carranza RN 04/23/2025 8:34 AM EDT - 04/23/2025 11:59 PM EDT Hospital Encounter Mammography [address] [address] Discharge Disposition: Home 04/23/2025 Telephone Hematology/Oncolog y [address] [facility] [place] [place] [address] Elba Carranza RN 04/19/2025 9:40 AM EDT Visit (SP) Office Hematology/Oncolog y [address] [facility] [place] [address] Ochoa Oden MD History of breast cancer (Primary Dx) 04/19/2025 Results Follow-Up Gastroenterology [address] [place] [address] Ash Liao Jr., DO 04/19/2025 Travel 04/18/2025 10:55 AM EDT Anesthesia Event [address] [place] [address] Robin Wiggins APRN.Gamaliel Barr APRN.INCLUSION MANAGER 04/18/2025 10:21 AM EDT - 04/18/2025 11:59 PM EDT Hospital Encounter [place] [address] [place] [address] Ash Liao Jr., DO RUQ pain [R10.11] Discharge Disposition: Home 04/17/2025 Patient Msg [facility] [address] [place] [address] Provider, Ccf APPT. CONFIRMATION 04/15/2025 Telephone Hematology/Oncolog y [address] [facility] [place] [address] Janine Carter RN new lump 04/10/2025 Patient Msg Referring Physician [facility] [place] [address] Provider, [facility]cf cardiology referral 04/10/2025 Transcribe Orders Referring Physician [facility] [place] [address] Tc Senior, BONIFACIO Palpitation (Primary Dx) 04/10/2025 GI Preprocedure Call [facility] [place] [address] [facility] [place] [address] Ash Liao Jr., 04/10/2025 Patient Msg [facility] [place] [address] [place] [address] Provider, Ccf Important- Instructions for your upcoming EGD from Last 3 Months Immunizations Immunization Administration Dates Next Due influenza (IIV4) vaccine, ag e 6 mo - 64 yr, quadrivalent, PF (AFLURIA, FLUARIX, FLULAVAL, FLUZONE) 07/19/2019 influenza vaccine, unspecified formulation 06/21 tetanus diphtheria pertussis (Tdap) vaccine, age 7+ yr (ADACEL, BOOSTRIX) 03/03/2024 Family History Medical History Relation Comments Hypertension Brother Heart disease Father Hypertension Father throat cancer Father Diabetes Maternal Grandfather Stomach cancer Maternal Grandfather Diabetes Maternal Grandmother lung cancer Mother Diabetes Paternal Grandfather lung cancer Paternal Grandfather Diabetes Paternal Grandmother Hypertension Sister Relation Status Comments Brother Father Maternal Grandfather Maternal Grandmother Mother Paternal Grandfather Paternal Grandmother Sister Social History Tobacco Use Types Packs/Day Years Used Date Smoking Tobacco: Former Cigarettes 0.5 20 1 988 - 2007 Smokeless Tobacco: Never Tobacco Cessation:Counseling Given: Not Answered Alcohol Use Standard Drinks/Week Comments Not Currently 0 (1 standard drink = 0.6 oz pur e alcohol) PHQ-2 Answer Date Recorded PHQ-2 score 0 04/18/2025 Area Deprivation Index Answer Date Jhonny rded National Score (1-100), lower number is lower ri sk 95 12/18/2024 State Score (1-10), lower number is lower risk 9 12/18/2024 Data from: https://www.neighborhoodatlas.medicine.[facility].edu/. Last address used for calculation [address] [facility] 12/18/2024 Comments No Sex and Gender Information Value Date Recorded Sex Assigned at Female 09/22/2021 7:14 AM EST Legal Sex Female 10:30 AM EDT Gender Identity Female 09/22/2021 7:14 AM EST Sexual Orientation Straight 09/22/2021 7: 14 AM EST Last Filed Vital Signs Vital Sign Reading [...] Mass Index 43.72 07/09/2025 2:13 PM EDT Plan of Treatment Upcoming Encounters Date Type Department Care Team (Late st Contact Info) Description 08/02/2025 10:30 AM EDT Office Visit Cardiology [address] [place] [address] [place] [address] [facility] [place] [address] SOB 11/05/2025 7:15 AM EST Office Visit Cardiology [address] [place] [address] Dx: Palpitation [R00.2] 11/05/2025 7:30 AM EST Procedure Cardiology [address] [place] [address] Dx: Palpitation [R00.2] 11/05/2025 8:15 AM EST Office Visit Preventive Cardiology [address] [place] [address] Brayan Leonardo MD [address] [facility] [address] [place], [place] [id number] Dx: Palpitation [R00.2] 12/31/2025 1:45 PM EDT Office Visit [facility] [address] [place] [address] [place] [address] 6 month follow up with lab 12/31/2025 2:00 PM EDT Visit (SP) Office Hematology/Oncolog y [address] [place] [address] Katelyn Oneal, PA-C [address] [place] [address] 6 month follow up with lab Health Maintenance Due Date Last Done Comments Diabetic Foot Exam 1977 Dilated Retinal Exam 1977 Urine Albumin:Creatinine Ratio 1977 Annual PCP Team Chronic Dise ase Visit 1985 Anxiety Screening 1985 Depression Screening 1985 HIV Screening 1985 Hepatitis B Vaccine (1 of 3 - 19+ 3-dose series) 1986 Pneumococcal Vaccine: 50+ (1 of 2 - PCV) 1986 Cervical Cancer Screening 1988 CT Colonography 2012 Cologuard (FIT-DNA) 2012 Fecal Occult Blood 2012 Sigmoidoscopy 2012 Shingrix Vaccine (1 of 2) 2017 LDL Cholesterol 12/31/2023 12/30/2022, 09/09, 01/25/2018 HbA1C 03/24/2024 12/23/2023, 02/07, 12/30/2022, Additional history exists Influenza Vaccine (#1) 2025 07/19/2019, 2018 Colonoscopy 03/23/2026 03/23/2023, 01/19/2018 Colorectal Cancer Screening 03/23/2026 Mammogram Screening 05/01/2026 05/01/2025, 07/20/2024, 04/21/2023, Additional history exists DTaP,Tdap,Td Vaccine (2 - Td or Tdap) 03/03/2034 03/03/2024 Hepatitis C Screening Completed 06/03/2023 , 12/30/2022, 03/31/2018, Additional history exists Procedures Procedure Name Priority Date/Time Associated Diagnosis Comments COMPREHENSIVE METABOLIC PANEL Routine 07/09/2025 2:01 PM EDT Fatty liver History of breast cancer CBC + DIFF Routine 07/09/2025 2:01 PM EDT Fatty liver History of breast cancer US BREAST LTD LEFT 05/01/2025 9: 33 AM EDT VIKA DIAG W GLEN BILATERAL Routine 05/01/2025 8:45 AM EDT EXTERNAL CARDIOLOGY 04/19/2025 9 :05 AM EDT EXTERNAL CARDIOLOGY 04/19/2025 9 :05 AM EDT EXTERNAL IMAGING 04/19/2025 9:05 AM EDT EXTERNAL IMAGING 04/19/2025 9:05 AM EDT EXTERNAL IMAGING 04/19/2025 9:05 AM EDT SURGICAL PATHOLOGY Routine 04/18/2025 11 :03 AM EDT RUQ pain GLUCOSE, BLOOD (POC) Routine 04/18/2025 10:48 AM EDT EGD DIAGNOSTIC Routine 04/18/2025 10:29 AM EDT RUQ pain HEPATITIS C VIRUS (HCV) RNA, QUANTITATIVE PCR, PLASMA/SERUM Routine 06/03/2023 1:33 PM EDT Echeverria syndrome Nonalcoholic fatty liver disease without nonalcoholic steatohepatitis (BANGURA) Class 2 obesity with body mass index (BMI) of 39.0 to 39.9 in adult, unspecified obesity type, unspecified whether serious comorbidity present Peptic ulcer disease COLONOSCOPY SCREENING Routine 03/23/2023 10:16 AM EDT Echeverria syndrome HEMOGLOBIN A1C Routine 01/09/2020 1:36 PM EDT Triple negative malignant neoplasm of breast (HCC) from Last 3 Months or Most Recently Relevant to Health Maintenance Results * (ABNORMAL) COMPREHENSIVE METABOLIC PANEL (07/09/2025 2:01 PM EDT) Protein, Total 7.0 6.3 - 8.0 g/dL 07/09/2025 2:35 PM EDT [facility] Albumin 3.8(L) 3.9 - 4.9 g/dL 07/09/2025 2:35 PM EDT [facility] Calcium, Total 9.6 8.5 - 10.2 mg/dL 07/09/2025 2:35 PM EDT [facility] Bilirubin, Total 0.8 0.2 - 1.3 mg/dL 07/09/2025 2:35 PM EDT [facility] Alkaline Phosphatase 95 34 - 123 U/L 07/09/2025 2:35 PM EDT [facility] AST 07/09/2025 2:35 PM T [facility] Comment:Unable to assay. Spe cimen significantly hemolyzed. ALT 33 7 - 38 U/L 07/09/2025 2:35 PM T [facility] Glucose 406(H) 74 - 99 mg/dL 07/09/2025 2:35 PM T [facility] Comment: The [place] Diabetes Association (ADA) provides guidance for cutoff values for fasting glucose and random glucose. The ADA defines fasting as no caloric intake for at least 8 hours. Fasting plasma glucose results between 100 to 125 mg/dL indicate increased risk for diabetes (prediabetes). Fasting plasma glucose results greater than or equal to 126 mg/dL meet the criteria for diagnosis of diabetes. In the absence of unequivocal hyperglycemia, results should be confirmed by repeat testing. In a patient with classic symptoms of hyperglycemia or hyperglycemic crisis, random plasma glucose results greater than or equal to 200 mg/dL meet the criteria for diagnosis of diabetes. Reference: Standards of Medical Care in Diabetes 2016, [place] Diabetes Association. Diabetes Care. 2016.39(Suppl 1). BUN 12 7 - 21 mg/dL 07/09/2025 2:35 PM T [facility] Creatinine 0.66 0.58 - 0.96 mg/dL 07/09/2025 2:35 PM T [facility] Sodium 135(L) 136 - 144 mmol/L 07/09/2025 2:35 PM EDT [facility] Potassium 4.6 3.7 - 5.1 mmol/L 07/09/2025 2:35 PM EDT [facility] Chloride 101 98 - 107 mmol/L 07/09/2025 2:35 PM EDT [facility] CO2 24 22 - 30 mmol/L 07/09/2025 2:35 PM EDT [facility] Anion Gap 10 8 - 15 mmol/L 07/09/2025 2:35 PM EDT [facility] Estimated Glomerular Filtration Rate 102 >=60 mL/min/1. 73m 07/09/2025 2:35 PM EDT [facility] Comment:Estimated Glomerular Filtration Rate (eGFR) is calculated using the 2020 CKD-EPI creatinine equation. This equation utilizes serum creatinine, sex, and age as parameters. The creatinine assay has traceable calibration to isotope dilution- mass spectrometry. Refer to KDIGO guidelines for clinical interpretation. In patients with unstable renal function, e.g. those with acute kidney injury, the eGFR may not accurately reflect actual GFR. Blood BLOOD SPECIMEN / Unknown Venipuncture / Unknown 07/09/2025 2:01 PM EDT 07/09/2025 2:01 PM EDT us Ochoa Oden MD LABORATORY Final Res ult [facility] [address] [place] [id number] * (ABNORMAL) COMPLETE BLOOD COUNT AND DIFFERENTIAL (07/09/2025 2:01 PM EDT) WBC 3.66(L) 3.70 - 11.00 k/uL 07/09/2025 2:18 PM EDT [facility] RBC 4.56 3.90 - 5.20 m/uL 07/09/2025 2:18 PM EDT [facility] Hemoglobin 14.2 11.5 - 15.5 g/dL 07/09/2025 2:18 PM EDT [facility] Hematocrit 41.8 36.0 - 46.0 % 07/09/2025 2:18 PM EDT [facility] MCV 91.7 80.0 - 100.0 fL 07/09/2025 2:18 PM EDT [facility] MCH 31.1 26.0 - 34.0 pg 07/09/2025 2:18 PM EDT [facility] MCHC 34.0 30.5 - 36.0 g/dL 07/09/2025 2:18 PM EDT [facility] RDW-CV 13.2 11.5 - 15.0 % 07/09/2025 2:18 PM EDT [facility] Platelet Count 56(L) 150 - 400 k/uL 07/09/2025 2:18 PM EDT [facility] Comment:No clot detected.Res ults checked and verified. MPV 11.9 9.0 - 12.7 fL 07/09/2025 2:18 PM EDT [facility] Neutrophils % 50.5 % 07/09/2025 2:18 PM EDT [facility] Abs Neut 1.85 1.45 - 7.50 k/uL 07/09/2025 2:18 PM EDT [facility] Lymphocytes % 34.7 % 07/09/2025 2:18 PM EDT [facility] Abs Lymph 1.27 1.00 - 4.00 k/uL 07/09/2025 2:18 PM EDT [facility] Monocytes % 7.7 % 07/09/2025 2:18 PM EDT [facility] Abs Mora 0.28 <0.87 k/uL 07/09/2025 2:18 PM EDT [facility] Eosinophils % 6.0 % 07/09/2025 2:18 PM EDT [facility] Abs Eosin 0.22 <0.46 k/uL 07/09/2025 2:18 PM EDT [facility] Basophils % 0.8 % 07/09/2025 2:18 PM EDT [facility] Abs Baso 0.03 <0.11 k/uL 07/09/2025 2:18 PM EDT [facility] Immature Granulocytes % 0.3 % 07/09/2025 2:18 PM EDT [facility] Abs Immature Gran <0.03 <0.10 k/uL 07/09/2025 2:18 PM EDT [facility] NRBC 0.0 /100 WBC 07/09/2025 2:18 PM EDT [facility] Absolute nRBC <0.01 <0.01 k/uL 07/09/2025 2:18 PM EDT [facility] Diff Type Auto 07/09/2025 2:18 PM EDT [facility] Blood BLOOD SPECIMEN / Unknown Venipuncture / Unknown 07/09/2025 2:01 PM EDT 07/09/2025 2:01 PM EDT us Ochoa Oden MD LABORATORY Final Res ult [facility] [address] [place] [address] * US BREAST LTD LEFT (05/01/2025 9:33 AM EDT) Anatomical Region Laterality Modality Breast Left Ultrasound 05/01/2025 9:33 AM EDT Impressions 05/01/2025 10:13 AM EDT IMPRESSION: There is no mammographic or sonographic evidence of malignancy. Benign post lumpectomy scarring upper-outer quadrant of the LEFT breast with no additional imaging findings seen to correspond to the area of palpable interest and pain. Clinical management is recommended. Return to annual screening mammogram is recommended. Annual mammogram will be due in 1 year. BI-RADS Category 2: Benign RISK: Due to the reported patient's history, the patient's estimated lifetime risk of developing breast cancer cannot be assessed at this time. We encourage all patients to talk with their providers about their risk assessment, further recommendations for managing breast health, and appropriate supplemental screening options if the patient has dense breast tissue. Interpreting Radiologist: Mario Garay M.D. Electronically signed on: 05/01/2025 Public Administration Professor: PAKO Sifuentesrileif Date/Time: May 01 2025 9:20A Dictated by : MARIO GARAY MD This examination was interpreted and the report reviewed and electronically signed by: MARIO GARAY MD on May 01 2025 10:08AM EST Narrative 05/01/2025 10:13 AM EDT * * *Final Report* * * DATE OF EXAM: May 01 2025 9:33AM [facility] 0593 - [place] BREAST Giga[employer]te LT / PROCEDURE REASON: multiple diagnoses * * * * Physician Interpretation * * * * RESULT: [address] [place] [address] #[id number] - VIKA ADRYAN CARROLL KYLIE #[id number] - [facility] BREAST [employer] LT HISTORY: 59 year-old patient presents for diagnostic evaluation of a palpable abnormality and focal pain in the left breast. The patient has the following personal history of breast cancer: breast cancer in the left breast. COMPARISON STUDIES: The present examination has been compared to prior imaging studies dated 12/11/2019 (mammogram), 10/20/2020 (ultrasound), 10/20/2020 (mammogram), 04/21/2023 (mammogram) and 07/20/2024 (mammogram). MAMMOGRAM TECHNIQUE: The study was acquired using full field digital technology and interpreted from soft copy. Digital Breast Tomosynthesis (DBT) images were obtained and used to assist in the interpretation of this examination. MAMMOGRAM FINDINGS: There are scattered areas of fibroglandular density. There are postoperative changes lumpectomy in the upper outer quadrant of the LEFT breast. No additional imaging findings to correspond to area of palpable interest. Ultrasound of the palpable lump and focal area of pain recommended and performed same day. No suspicious masses, calcifications or other abnormalities are seen in either breast. ULTRASOUND TECHNIQUE: Targeted ultrasound of the indicated area was performed. Myers scale images were saved. ULTRASOUND FINDINGS: There are no suspicious findings in the imaged area. Procedure Note Provider, [facility] [place] - 05/01/2025 * * *Final Report* * * DATE OF EXAM: May 01 2025 9:33AM [facility] 0593 - [place] BREAST GigaB[employer]te LT / PROCEDURE REASON: multiple diagnoses * * * * Physician Interpretation * * * * RESULT: [address] [place] [id number] #[id number] - [facility] ADRYAN ESPINAL #[id number] - [facility] [employer] BREAST GigaBryte LT HISTORY: 59 year-old patient presents for diagnostic evaluation of a palpable abnormality and focal pain in the left breast. The patient has the following personal history of breast cancer: breast cancer in the left breast. COMPARISON STUDIES: The present examination has been compared to prior imaging studies dated 12/11/2019 (mammogram), 10/20/2020 (ultrasound), 10/20/2020 (mammogram), 04/21/2023 (mammogram) and 07/20/2024 (mammogram). MAMMOGRAM TECHNIQUE: The study was acquired using full field digital technology and interpreted from soft copy. Digital Breast Tomosynthesis (DBT) images were obtained and used to assist in the interpretation of this examination. MAMMOGRAM FINDINGS: There are scattered areas of fibroglandular density. There are postoperative changes lumpectomy in the upper outer quadrant of the LEFT breast. No additional imaging findings to correspond to area of palpable interest. Ultrasound of the palpable lump and focal area of pain recommended and performed same day. No suspicious masses, calcifications or other abnormalities are seen in either breast. ULTRASOUND TECHNIQUE: Targeted ultrasound of the indicated area was performed. Myers scale images were saved. ULTRASOUND FINDINGS: There are no suspicious findings in the imaged area. IMPRESSION IMPRESSION: There is no mammographic or sonographic evidence of malignancy. Benign post lumpectomy scarring upper-outer quadrant of the LEFT breast with no additional imaging findings seen to correspond to the area of palpable interest and pain. Clinical management is recommended. Return to annual screening mammogram is recommended. Annual mammogram will be due in 1 year. BI-RADS Category 2: Benign RISK: Due to the reported patient's history, the patient's estimated lifetime risk of developing breast cancer cannot be assessed at this time. We encourage all patients to talk with their providers about their risk assessment, further recommendations for managing breast health, and appropriate supplemental screening options if the patient has dense breast tissue. Interpreting Radiologist: Mario Garay M.D. Electronically signed on: 05/01/2025 Public Administration Professor: PAKO Transcrileif Date/Time: May 01 2025 9:20A Dictated by : MARIO GARAY MD This examination was interpreted and the report reviewed and electronically signed by: MARIO GARAY MD on May 01 2025 10:08AM EST us Ochoanani SANDY-HIPOLITO Final Res ult * VIKA DIAG W GLEN BILATERAL (05/01/2025 8:45 AM EDT) Anatomical Region Laterality Modality Breast Bilateral Mammography 05/01/2025 8:45 AM EDT Impressions 05/01/2025 10:13 AM EDT IMPRESSION: There is no mammographic or sonographic evidence of malignancy. Benign post lumpectomy scarring upper-outer quadrant of the LEFT breast with no additional imaging findings seen to correspond to the area of palpable interest and pain. Clinical management is recommended. Return to annual screening mammogram is recommended. Annual mammogram will be due in 1 year. BI-RADS Category 2: Benign RISK: Due to the reported patient's history, the patient's estimated lifetime risk of developing breast cancer cannot be assessed at this time. We encourage all patients to talk with their providers about their risk assessment, further recommendations for managing breast health, and appropriate supplemental screening options if the patient has dense breast tissue. Interpreting Radiologist: Mario Garay M.D. Electronically signed on: 05/01/2025 Public Administration Professor: PAKO Transcrileif Date/Time: May 01 2025 8:26A Dictated by : MARIO GARAY MD This examination was interpreted and the report reviewed and electronically signed by: MARIO GARAY MD on May 01 2025 10:08AM EST Narrative 05/01/2025 10:13 AM EDT * * *Final Report* * * DATE OF EXAM: May 01 2025 8:45AM W 0627 - VIKA DIAG W GLEN KYLIE / PROCEDURE REASON: multiple diagnoses * * * * Physician Interpretation * * * * RESULT: [place] [id number] [facility] [place] [id number] #[id number] - VIKA DIAG W GLEN KYLIE #[id number] - [facility] [employer] BREAST LTD LT HISTORY: 59 year-old patient presents for diagnostic evaluation of a palpable abnormality and focal pain in the left breast. The patient has the following personal history of breast cancer: breast cancer in the left breast. COMPARISON STUDIES: The present examination has been compared to prior imaging studies dated 12/11/2019 (mammogram), 10/20/2020 (ultrasound), 10/20/2020 (mammogram), 04/21/2023 (mammogram) and 07/20/2024 (mammogram). MAMMOGRAM TECHNIQUE: The study was acquired using full field digital technology and interpreted from soft copy. Digital Breast Tomosynthesis (DBT) images were obtained and used to assist in the interpretation of this examination. MAMMOGRAM FINDINGS: There are scattered areas of fibroglandular density. There are postoperative changes lumpectomy in the upper outer quadrant of the LEFT breast. No additional imaging findings to correspond to area of palpable interest. Ultrasound of the palpable lump and focal area of pain recommended and performed same day. No suspicious masses, calcifications or other abnormalities are seen in either breast. ULTRASOUND TECHNIQUE: Targeted ultrasound of the indicated area was performed. Myers scale images were saved. ULTRASOUND FINDINGS: There are no suspicious findings in the imaged area. Procedure Note Provider, [facility] [place] - 05/01/2025 * * *Final Report* * * DATE OF EXAM: May 01 2025 8:45AM MCW 0627 - VIKA DIAG W GLEN KYLIE / PROCEDURE REASON: multiple diagnoses * * * * Physician Interpretation * * * * RESULT: [place] [id number] [facility] [address] [address] #[id number] - VIKA DIAG W GLEN KYLIE #[id number] - [facility] [employer] BREAST [employer] LT HISTORY: 59 year-old patient presents for diagnostic evaluation of a palpable abnormality and focal pain in the left breast. The patient has the following personal history of breast cancer: breast cancer in the left breast. COMPARISON STUDIES: The present examination has been compared to prior imaging studies dated 12/11/2019 (mammogram), 10/20/2020 (ultrasound), 10/20/2020 (mammogram), 04/21/2023 (mammogram) and 07/20/2024 (mammogram). MAMMOGRAM TECHNIQUE: The study was acquired using full field digital technology and interpreted from soft copy. Digital Breast Tomosynthesis (DBT) images were obtained and used to assist in the interpretation of this examination. MAMMOGRAM FINDINGS: There are scattered areas of fibroglandular density. There are postoperative changes lumpectomy in the upper outer quadrant of the LEFT breast. No additional imaging findings to correspond to area of palpable interest. Ultrasound of the palpable lump and focal area of pain recommended and performed same day. No suspicious masses, calcifications or other abnormalities are seen in either breast. ULTRASOUND TECHNIQUE: Targeted ultrasound of the indicated area was performed. Myers scale images were saved. ULTRASOUND FINDINGS: There are no suspicious findings in the imaged area. IMPRESSION IMPRESSION: There is no mammographic or sonographic evidence of malignancy. Benign post lumpectomy scarring upper-outer quadrant of the LEFT breast with no additional imaging findings seen to correspond to the area of palpable interest and pain. Clinical management is recommended. Return to annual screening mammogram is recommended. Annual mammogram will be due in 1 year. BI-RADS Category 2: Benign RISK: Due to the reported patient's history, the patient's estimated lifetime risk of developing breast cancer cannot be assessed at this time. We encourage all patients to talk with their providers about their risk assessment, further recommendations for managing breast health, and appropriate supplemental screening options if the patient has dense breast tissue. Interpreting Radiologist: Mario Garay M.D. Electronically signed on: 05/01/2025 Public Administration Professor: PAKO Transcribe Date/Time: May 01 2025 8:26A Dictated by : MARIO GARAY MD This examination was interpreted and the report reviewed and electronically signed by: MARIO GARAY MD on May 01 2025 10:08AM EST Ochoa SANDY-PAMAlex Final Res ult * EXTERNAL CARDIOLOGY (04/19/2025 9:05 AM EDT) us External Provider PA-C CARDIOLOGY Final Res ult * EXTERNAL CARDIOLOGY (04/19/2025 9:05 AM EDT) us External Provider PA-C CARDIOLOGY Final Res ult * EXTERNAL IMAGING (04/19/2025 9:05 AM EDT) Anatomical Region Laterality Modality Other us External Provider PA-C RADIOLOGY Final Res ult * EXTERNAL IMAGING (04/19/2025 9:05 AM EDT) Anatomical Region Laterality Modality Other us External Provider PA-C RADIOLOGY Final Res ult * EXTERNAL IMAGING (04/19/2025 9:05 AM EDT) Anatomical Region Laterality Modality Other us External Provider PA-C RADIOLOGY Final Res ult * SURGICAL PATHOLOGY (04/18/2025 11:03 AM EDT) Case Report Surgical Pathology Report Case: [id number] Authorizing Provider: Ash Liao Jr., DO Collected: 04/18/2025 11:03 AM Ordering Location: [facility] Endoscopy Received: 04/18/2025 11:03 PM [facility] Pathologist: Troy Cowan MD Specimen: Stomach, Antrum, Biopsy, ulcer 04/19/2025 1:01 PM EDT [facility] FINAL DIAGNOSIS A. Stomach, Antrum, Biopsy: - Antral mucosa with reactive gastropathy - Oxyntic mucosa with no diagnostic alteration - No morphologic evidence of Helicobacter pylori 04/19/2025 1:01 PM EDT [facility] at 1301 EDT Gross Description A. Stomach, Antrum, Biopsy Received in formalin are two pieces of mittal-brown, soft tissue aggregating to 0.9 x 0.3 x 0.2 cm. Totally submitted in one cassette. DL April 19, 2025 4:04 AM Gross examination performed at [facility], [facility] [place] [address] 04/19/2025 1:01 PM EDT [facility] Performing Lab Diagnostic interpretation performed at: [facility], [address] [facility], [facility] [address], [place] [id number] CLIA# [id number] Bottom Turner: Marlon Dean MD 04/19/2025 1:01 PM EDT [facility] Disclaimer Laboratory Developed Test (LDT) Disclaimer: Performance characteristics of immunohistochemica l, immunofluorescent, and chromogenic in-situ hybridization tests have been determined by the performing laboratory within [facility]'s [facility] Pathology and Laboratory Medicine Department ([facility], [facility], [facility], [facility], [facility], [facility], or [facility]) in a manner consistent with CLIA requirements. One or more of these tests may not have been cleared or approved by the FDA. [facility] is regulated under CLIA as qualified to perform high-complexity testing. These tests are used for clinical purposes. These should not be regarded as investigational or for research. Positive and negative controls stain appropriately. 04/19/2025 1:01 PM EDT [facility] Tissue PYLORIC ANTRUM STRUCTURE / Unknown 04/18/2025 11:03 AM EDT 04/18/2025 11:03 PM EDT us Ash Liao Jr., DO SURGICAL PATHOLOGY Final R esult [facility] [place] [address], [place] * (ABNORMAL) GLUCOSE, BLOOD (POC) (04/18/2025 10:48 AM EDT) Glucose, Point of Care 154(A) 74 - 99 mg/dL [facility] Comment: Location: Endoscopy [facility], [facility] [address], [place], [address] The Accu-Chek Inform II glucose meter has not been approved for testing on patients receiving intensive medical intervention or therapy and results from this point of care glucose test should not be used for patient management decisions in these cases. Inaccurate results may also occur from other interfering factors, such as N-acetylcysteine (blood concentrations of greater than 5mg/dL), galactose, extremes of hematocrit (<10 or >65), or high doses of ascorbic acid (vitamin C) greater than 3mg/dL. Consider alternate testing mechanisms (e.g. core lab, blood gas instrument) in the above situations. 04/18/2025 10:4 8 AM EDT us Ash Liao Jr., DO POC TESTING Final Resu lt [facility] POINT OF CARE CC [facility] [address] [place], [place] * EGD DIAGNOSTIC (04/18/2025 10:29 AM EDT) Anatomical Region Laterality Modality Other 04/18/2025 10:2 9 AM EDT Narrative 04/18/2025 11:09 AM EDT [facility] Gastrointestinal Endoscopy Patient Name: Pavithra Martins Procedure Date: 04/18/2025 10:29 AM Date of : 1965 Admit Type: Outpatient Age: 59 Gender: Female Note Status: Finalized Attending MD: Ash Liao Jr, DO, [id number] Procedure: Upper GI endoscopy Indications: Upper abdominal pain, Dyspepsia, Esophageal reflux, Chronic gastric ulcer Providers: Ash Liao Jr, DO Patient Profile: This is a 59 year old female. Refer to note in patient chart for documentation of history and physical. Referring Physician: Arnol Lee MD (Referring MD) Medicines: Propofol per Anesthesia, Monitored Anesthesia Care Complications: No immediate complications. Requesting Provider: Procedure: Pre-Anesthesia Assessment: - Prior to the procedure, a History and Physical was performed, and patient medications and allergies were reviewed. The patient's tolerance of previous anesthesia was also reviewed. The risks and benefits of the procedure and the sedation options and risks were discussed with the patient. All questions were answered, and informed consent was obtained. Prior Anticoagulants: The patient has taken no anticoagulant or antiplatelet agents. ASA Grade Assessment: III - A patient with severe systemic disease. After reviewing the risks and benefits, the patient was deemed in satisfactory condition to undergo the procedure. After obtaining informed consent, the endoscope was passed under direct vision. Throughout the procedure, the patient's blood pressure, pulse, and oxygen saturations were monitored continuously. The Endoscope was introduced through the mouth, and advanced to the second part of duodenum. The upper GI endoscopy was accomplished without difficulty. The patient tolerated the procedure well. Total Procedure Duration: 0 hours 2 minutes 39 seconds Findings: The examined esophagus was normal. The Z-line was regular and was found 40 cm from the incisors. Four non-bleeding small superficial gastric ulcers with no stigmata of bleeding were found in the gastric antrum. Biopsies were taken with a cold forceps for histology. A small hiatal hernia was present. The examined duodenum was normal. Moderate Sedation: MAC anesthesia was administered by the anesthesia team. Impression: - Normal esophagus. - Z-line regular, 40 cm from the incisors. - Non-bleeding small gastric ulcers with no stigmata of bleeding. Biopsied. - Small hiatal hernia. - Normal examined duodenum. Recommendation: - Discharge patient to home. - Resume regular diet. - Continue present medications. - Await pathology results. - Start PPI therapy. Procedure Code(s): --- Professional --- 82475, Esophagogastroduodenoscopy, flexible, transoral; with biopsy, single or multiple Diagnosis Code(s): --- Professional --- K25.9, Gastric ulcer, unspecified as acute or chronic, without hemorrhage or perforation K44.9, Diaphragmatic hernia without obstruction or gangrene R10.10, Upper abdominal pain, unspecified R10.13, Epigastric pain K21.9, Gastro-esophageal reflux disease without esophagitis K25.7, Chronic gastric ulcer without hemorrhage or perforation CPT copyright 2020 [employer]. All rights reserved. The codes documented in this report are preliminary and upon manager office services review may be revised to meet current compliance requirements. Attending Participation: I personally performed the entire procedure. MD Ash Magana Jr, DO 04/18/2025 11:07:40 AM This report has been signed electronically by Ash Liao Jr, DO Number of Addenda: 0 Note Initiated On: 04/18/2025 10:29 AM Procedure Start: 11:00:33 AM Procedure End: 11:03:12 AM R Arnol Lee MD DIGESTIVE DISEASE Final Resul t * HCV QUANT RNA BY PCR (06/03/2023 1:33 PM EDT) HCV RNA HCV RNA not detected by PCR. HCV RNA not detected by PCR. [place] [address] 06/04/2023 5:22 AM EDT [facility] Blood BLOOD SPECIMEN / Unknown Venipuncture / Unknown 06/03/2023 1:33 PM EDT 06/03/2023 1:34 PM EDT Narrative [facility] - 06/04/2023 5:22 AM EDT The Linear Range of this assay is 15 IU/ml to 100,000,000 IU/ml us Ash Liao Jr., DO LABORATORY Final Resu lt [facility] [address] * COLONOSCOPY SCREENING (03/23/2023 10:16 AM EDT) Anatomical Region Laterality Modality Other 03/23/2023 10:1 6 AM EDT Narrative 03/23/2023 11:15 AM EDT [facility] Gastrointestinal Endoscopy Patient Name: Pavithra Martins Procedure Date: 03/23/2023 10:16 AM Date of : 1965 Admit Type: Outpatient Age: 57 Room: [place] [address] Gender: Female Note Status: Finalized Attending MD: Ash Liao Jr, DO Procedure: Colonoscopy 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 Refer to note in patient chart for documentation of history and physical. Last Colonoscopy: 5 years ago. Referring Physician: Ash Liao Jr, DO (Referring MD) Medicines: Propofol per Anesthesia, Monitored Anesthesia Care Complications: No immediate complications. Requesting Provider: Procedure: Pre-Anesthesia Assessment: - Prior to the procedure, a History and Physical was performed, and patient medications and allergies were reviewed. The patient's tolerance of previous anesthesia was also reviewed. The risks and benefits of the procedure and the sedation options and risks were discussed with the patient. All questions were answered, and informed consent was obtained. Prior Anticoagulants: The patient has taken no anticoagulant or antiplatelet agents. ASA Grade Assessment: III - A patient with severe systemic disease. After reviewing the risks and benefits, the patient was deemed in satisfactory condition to undergo the procedure. After I obtained informed consent, the scope was passed under direct vision. Throughout the procedure, the patient's blood pressure, pulse, and oxygen saturations were monitored continuously. The Colonoscope was introduced through the anus and advanced to the terminal ileum, with identification of the appendiceal orifice and IC valve. The colonoscopy was performed without difficulty. The patient tolerated the procedure well. The quality of the bowel preparation was excellent. The entire colon was well visualized. The terminal ileum, ileocecal valve, appendiceal orifice, and rectum were photographed. Scope Withdrawal Time: 0 hours 8 minutes 15 seconds Moderate Sedation: MAC anesthesia was administered by the anesthesia team. Total Procedure Duration: 0 hours 12 minutes 16 seconds Findings: The digital rectal exam was normal. The terminal ileum appeared normal. A diminutive polyp was found in the transverse colon. The polyp was sessile. The polyp was removed with a jumbo cold forceps. Resection and retrieval were complete. Many medium-mouthed diverticula were found in the sigmoid colon. Internal hemorrhoids were found during retroflexion. The hemorrhoids were Grade II (internal hemorrhoids that prolapse but reduce spontaneously). Impression: - The examined portion of the ileum was normal. - One diminutive polyp in the transverse colon, removed with a jumbo cold forceps. Resected and retrieved. - Diverticulosis in the sigmoid colon. - Internal hemorrhoids. Recommendation: - Repeat colonoscopy in 3 years for surveillance given polyp and Echeverria syndrome. - Await pathology results. - Discharge patient to home. - Resume regular diet. - Patient has a contact number available for emergencies. The signs and symptoms of potential delayed complications were discussed with the patient. Return to normal activities tomorrow. Written discharge instructions were provided to the patient. - Continue present medications. Procedure Code(s): --- Professional --- 54484, Colonoscopy, flexible; with biopsy, single or multiple Diagnosis Code(s): --- Professional --- K64.1, Second degree hemorrhoids D12.3, Benign neoplasm of transverse colon (hepatic flexure or splenic flexure) Z15.09, Genetic susceptibility to other malignant neoplasm K57.30, Diverticulosis of large intestine without perforation or abscess without bleeding CPT copyright 2020 [employer]. All rights reserved. The codes documented in this report are preliminary and upon manager office services review may be revised to meet current compliance requirements. Attending Participation: I personally performed the entire procedure. Scope In: 10:52:37 AM Scope Out: 11:04:53 AM MD Ash Magana Jr, DO 03/23/2023 11:12:37 AM This report has been signed electronically by Ash Liao Jr, DO Number of Addenda: 0 Note Initiated On: 03/23/2023 10:16 AM Estimated Blood Loss: Estimated blood loss: none. us Ash Liao Jr., DO DIGESTIVE DISEASE Final Re sult * (ABNORMAL) HGB A1C (01/09/2020 1:36 PM EDT) Hemoglobin A1C 8.5(H) 4.3 - 5.6 % 01/10/2020 5:56 AM EDT [facility] Comment: [place] [employer] guidelines indicate that patients with HgbA1c in the range 5.7-6.4% are at increased risk for development of diabetes, and intervention by lifestyle modification may be beneficial. HgbA1c greater or equal to 6.5% is considered diagnostic of diabetes. Estimated Average Glucose 197 mg/dL 01/10/2020 5:56 AM EDT [facility] Comment: eAG: (Estimated average glucose) is a calculated value from HgbA1c and is outside sales representative of the average blood glucose level in the last 2-3 month period. Blood specimen (specimen) WHOLE BLOOD SPECIMEN / Unknown 01/09/2020 1:36 PM EDT 01/09/2020 1:38 PM EDT us Cory Lang MD LABORATORY Final Result [facility] [address] [place] [address] [facility] [address] [place] [address] from Last 3 Months or Most Recently Relevant to Health Maintenance Insurance [employer] P[employer] Advance Directives * Full Code (Latest Code Status on File) Date Activated Date Inactivated Comments 07/31/2019 9:08 PM 08/02/2019 8:18 PM Question Answer Comments Full Code Order Discussed With: Patient Care Teams Night Order Selector Relationship Specialty Start Date End Date Elayne Bishop CNP [address] [place] [id number] PCP - General 02/09/23 [place] [address] [place] [address] Consulting Hematology/Oncology 06/27/19 [place]y Mart[place] (R[place] [address] [place] [address] Specialty Hand Presser Hematology/Oncology 07/16/19 Katelyn Oneal PA-C [address] [facility] [address] Physician Orthopedic Specialist Hematology/Oncology 08/15/19 Ochoa Oden MD [address] [place] [address] Physician Hematology/Oncology 06/20/24 Tc Senior APRN [address] [place] [address] Referring 04/10/25
--- OUTSIDE RECORDS SUMMARY | 2025-07-11 18:21 | XMS_ITS | Encounter Summary ---
Author Organization [facility] Address [facility] [place] [address] Care Team Providers Care Claims Administrator Name Role Phone Halina Orantes MD Unavailable Destini Kent(Hist) Primary Care Provider Unavail able Destiney Martins (Rn) RN Unavailable Janine Carter RN Unavailable [phone] Cory Lang MD Unavailable [phone] Katelyn Oneal PA-C Unavailable [phone] Elayne Bishop CNP Primary Care Provider [phone] Ochoa Oden MD Unavailable [phone] Tc Senior APRN Unavailable [phone] Source Comments In the event this information is protected by the Federal Confidentiality of Alcohol and Drug AbusePatient Records regulations: The Federal rules restrict any use of the information to criminally investigate or prosecute any alcohol or drug abuse patient.[facility] Encounter Details Date Type Department Care Team (Late st Contact Info) Description 05/22/2021 Patient Msg Hematology/Oncology [address] [place] [address] Katelyn Oneal PA-C [address] [place] [address] RE: Appointment Cancellation Request Social History Tobacco [...] Data from: https://www.neighborhoodatlas.medicine.[facility]/. Last address used for calculation [...] 08/02/2025 10:30 AM EDT Office Visit Cardiology [address] [place] [address] [place] [address] [facility] [place] [address] SOB 11/05/2025 7:15 AM EST Office Visit Cardiology [address] [place] [address] Dx: Palpitation [R00.2] 11/05/2025 7:30 AM EST Procedure Cardiology [address] [place] [address] Dx: Palpitation [R00.2] 11/05/2025 8:15 AM EST Office Visit Preventive Cardiology [address] [place] [address] Brayan Leonardo MD [address] [facility] [place] [facility] [address] [place] [address] Dx: Palpitation [R00.2] 12/31/2025 1:45 PM EDT Office Visit [facility] [address] [place] [address] 6 month follow up with lab 12/31/2025 2:00 PM EDT Visit (SP) Office Hematology/Oncolog y [address] [place] [address] Katelyn Oneal, PA-C [address] [place] [address] 6 month follow up with lab documented as of this encounter Visit Diagnoses Not on filedocumented in this encounter Care Teams Claims Administrator Relationship Specialty Start Date End Date Destini Kent(Hist) PCP - General 07/13/19 02/08/23 Elayne Bishop CNP [address] [place] [address] PCP - General 02/09/23 [place] [address] [place] [address] Consulting Hematology/Oncology 06/27/19 [place]ine[place] ([place]), [place] [address] [place] [address] Specialty Assistant Import Manager Hematology/Oncology 07/16/19 Janine Carter RN [address] [place] [address] [place] [address] Specialty Assistant Import Manager Hematology/Oncology 08/15/19 02/01/24 Cory Lang MD [address] [place] [address] [place] [address] Physician Hematology/Oncology 08/15/19 06/19/24 Katelyn Oneal, PA-C [address] [place] [address] [place] [address] Physician Sample Grader Hematology/Oncology 08/15/19 Ochoa Oden MD [address] [place] [address] [place] [address] Physician Hematology/Oncology 06/20/24 Tc Senior APRN [address] [place] [address] Referring 04/10/25 documented as of this encounter
--- OUTSIDE RECORDS SUMMARY | 2025-07-11 18:21 | XMS_ITS | Encounter Summary ---
Author Organization [facility] Address [facility] [place] [address] Care Team Providers Care Pecan Huller Name Role Phone Halina Orantes MD Unavailable Destiney Martins (Rn) RN Unavailable [phone] Katelyn Oneal PA-C Unavailable [phone] Elayne Bishop CNP Primary Care Provider [phone] Ochoa Oden MD Unavailable [phone] Tc Senior APRN Unavailable [phone] Source Comments In the event this information is protected by the Federal Confidentiality of Alcohol and Drug AbusePatient Records regulations: The Federal rules restrict any use of the information to criminally investigate or prosecute any alcohol or drug abuse patient.[facility] Encounter Details Date Type Department Care Team (Latest Contact Info) Description 07/09/2025 Travel Social History Tobacco Use Types Packs/Day Years [...] is lower risk 9 12/18/2024 Data from: https://www.neighborhoodatlas.[facility]/. Last address used for calculation [address] [facility] 12/18/2024 Comments No Sex and Gender Information [...] 08/02/2025 10:30 AM EDT Office Visit Cardiology [address] [place] [address] [place] [address] [facility] [address] SOB 11/05/2025 7:15 AM EST Office Visit Cardiology [address] [place] [address] Dx: Palpitation [R00.2] 11/05/2025 7:30 AM EST Procedure Cardiology [address] [place] [address] Dx: Palpitation [R00.2] 11/05/2025 8:15 AM EST Office Visit Preventive Cardiology [address] [place] [address] Brayan Leonardo MD 95[address] [facility] [address] [place] [address] Dx: Palpitation [R00.2] 12/31/2025 1:45 PM EDT Office Visit [facility] [address] [place] [address] 6 month follow up with lab 12/31/2025 2:00 PM EDT Visit (SP) Office Hematology/Oncolog y [address] [place] [address] Katelyn Oneal, PA-C [address] [place] [address] 6 month follow up with lab documented as of this encounter Visit Diagnoses Not on filedocumented in this encounter Care Teams Pecan Huller Relationship Specialty Start Date End Date Elayne Bishop CNP [address] [place] [address] PCP - General 02/09/23 [place] [address] [place] [address] Consulting Hematology/Oncology 06/27/19 [place]), [place] [address] [place] [address] Specialty Linen Clerk Hematology/Oncology 07/16/19 Katelyn Oneal PAFransicoC [address] [place] [address] Physician Second Cook And Baker Hematology/Oncology 08/15/19 Ochoa Oden MD [address] [place] [address] Physician Hematology/Oncology 06/20/24 Tc Senior APRN [address] [place] [address] Referring 04/10/25 documented as of this encounter
--- OUTSIDE RECORDS SUMMARY | 2025-07-11 18:21 | XMS_ITS | Encounter Summary ---
Author Organization [facility] Address [facility] [place] [address] Care Team Providers Care Light Industrial Supervisor Name Role Phone Halina Orantes MD Unavailable Destini Kent(Hist) Primary Care Provider Unavail able Destniey Martins (Rn) RN Unavailable [phone] Janine Carter RN Unavailable [phone] Cory Lang MD Unavailable [phone] Katelyn Oneal PA-C Unavailable [phone] Elayne Bishop CNP Primary Care Provider [phone] Ochoa Oden MD Unavailable [phone] Tc Senior APRN Unavailable [phone] Source Comments In the event this information is protected by the Federal Confidentiality of Alcohol and Drug AbusePatient Records regulations: The Federal rules restrict any use of the information to criminally investigate or prosecute any alcohol or drug abuse patient.[facility] Encounter Details Date Type Department Care Team (Late st Contact Info) Description 05/22/2021 Patient Msg Hematology/Oncology [address] [place] [address] Katelyn Oneal PA-C [address] [place] [address] RE: Appointment Cancellation Request Social History Tobacco [...] N ot on file 09/15/2020 Data from: https://www.neighborhoodatlas.medicine.[facility]/. Last address used for calculation [...] 08/02/2025 10:30 AM EDT Office Visit Cardiology [address] [place] [address] [place] [address] [place] [address] SOB 11/05/2025 7:15 AM EST Office Visit Cardiology [address] [place] [address] Dx: Palpitation [R00.2] 11/05/2025 7:30 AM EST Procedure Cardiology [address] [place] [address] Dx: Palpitation [R00.2] 11/05/2025 8:15 AM EST Office Visit Preventive Cardiology [address] [place] [address] Brayan Leonardo MD 9500 [facility] [address] [place] [address] Dx: Palpitation [R00.2] 12/31/2025 1:45 PM EDT Office Visit [facility] [place] [facility] [address] [place] [address] 6 month follow up with lab 12/31/2025 2:00 PM EDT Visit (SP) Office Hematology/Oncolog y [address] [place] [address] Katelyn Oneal, PA-C [address] [place] [address] 6 month follow up with lab documented as of this encounter Visit Diagnoses Not on filedocumented in this encounter Care Teams Light Industrial Supervisor Relationship Specialty Start Date End Date Destini Kent(Hist) PCP - General 07/13/19 02/08/23 Elayne Bishop CNP [address] [place] [address] PCP - General 02/09/23 [place] [address] [place] [address] Consulting Hematology/Oncology 06/27/19 [place] ([place]), [place] [address] [place] [address] Specialty Healthcare Facility Administrator Hematology/Oncology 07/16/19 Janine Carter RN [address] [place] [address] [place] [address] Specialty Healthcare Facility Administrator Hematology/Oncology 08/15/19 02/01/24 Cory Lang MD [address] [place] [address] [place] [address] Physician Hematology/Oncology 08/15/19 06/19/24 Katelyn Oneal, PA-C [address] [place] [address] [place] [address] Physician Gas Dispatcher Hematology/Oncology 08/15/19 Ochoa Oden MD [address] [place] [address] [place] [address] Physician Hematology/Oncology 06/20/24 Tc Senior APRN [address] [place] [address] Referring 04/10/25 documented as of this encounter
--- OUTSIDE RECORDS SUMMARY | 2025-07-11 18:21 | XMS_ITS | Encounter Summary ---
Author Organization [facility] Address [facility] [place] [address] Care Team Providers Care Feller Hand Name Role Phone Halina Orantes MD Unavailable Destini Kent(Hist) Primary Care Provider Unavail able Destiney Martins (Rn) RN Unavailable [phone] Janine Carter RN Unavailable [phone] Cory Lang MD Unavailable [phone] Katelyn Oneal PA-C Unavailable [phone] Elayne Bishop CNP Primary Care Provider [phone] Ochoa Oden MD Unavailable [phone] Tc Senior APRN Unavailable [phone] Source Comments In the event this information is protected by the Federal Confidentiality of Alcohol and Drug AbusePatient Records regulations: The Federal rules restrict any use of the information to criminally investigate or prosecute any alcohol or drug abuse patient.[facility] Encounter Details Date Type Department Care Team (Late st Contact Info) Description 10/20/2020 Radiology Radiology [address] [address] RAM[address]Z [address], [facility] Social History Tobacco Use Types Packs/Day Years Used Date Smoking Tobacco: Former Cigarettes 0.5 20 1 988 - 2007 Smokeless Tobacco: Never Alcohol Use Standard Drinks/Week Comments Not Currently 0 (1 standard drink = 0.6 oz pur e alcohol) PHQ-2 Answer Date Recorded PHQ-2 score 0 06/10/2020 Area Deprivation Index Answer Date Jhonny rded National Score (1-100), lower number is lower ri sk Not on file 09/15/2020 State Score (1-10), lower number is lower risk N ot on file 09/15/2020 Data from: https://www.neighborhoodatlas.medicine.[facility].edu/. Last address used for calculation Not on [...] have Coronavirus / COVID-19? No / Unsure 10/20/2020 8:45 AM EST documented as of this encounter [...] taco Ray RN documented in this encounter Progress Notes * Nadya Redd)Mian - 10/20/2020 10:00 AM EST Radiology Service Progress Note PATIENT NAME: Pavithra Martins DATE OF SERVICE: October 20, 2020 TIME: 10:00 AM PATIENT IDENTITY VERIFICATION COMPLETED USING TWO (2) IDENTIFIERS: Name and Date of confirmedby patient verbally. FALL SCREENING: Has the patient had 2 falls in the last year or 1 fall with injury or currently using an Ambulatory Assistive Device (Walker, Cane, Wheelchair, Crutches, etc.)? No PATIENT GENDER DATA: Female. status: : No status: NO. PATIENT RELEVANT IMPLANT DATA REVIEWED: Not Applicable RADIOLOGY DEPARTMENT: Ultrasound PERIPHERAL IV DATA: Not applicable SIGNED BY: RT Angeles October 20, 2020 10:00 AM documented in this encounter Plan of Treatment Upcoming Encounters Date Type Department Care Team (Late st Contact Info) Description 08/02/2025 10:30 AM EDT Office Visit Cardiology [address] [place] [address] [place] [address] [facility]. [place], [place] [address] SOB 11/05/2025 7:15 AM EST Office Visit Cardiology [address] [place] [address] Dx: Palpitation [R00.2] 11/05/2025 7:30 AM EST Procedure Cardiology [address] [place] [address] Dx: Palpitation [R00.2] 11/05/2025 8:15 AM EST Office Visit Preventive Cardiology [address] [place] [address] Brayan Leonardo MD 3030 [facility] [address] [place] [address] Dx: Palpitation [R00.2] 12/31/2025 1:45 PM EDT Office Visit [facility] [address] [place] [address] 6 month follow up with lab 12/31/2025 2:00 PM EDT Visit (SP) Office Hematology/Oncolog y [address] [place] [address] Katelyn Oneal, PAFransicoC [address] [place] [address] 6 month follow up with lab documented as of this encounter Visit Diagnoses Not on filedocumented in this encounter Care Teams Feller Hand Relationship Specialty Start Date End Date Destini Kent(Hist) PCP - General 07/13/19 02/08/23 Elayne Bishop CNP [address] [place] [address] PCP - General 02/09/23 [place] [address] [place] [address] Consulting Hematology/Oncology 06/27/19 [place] [address] [place] [address] Specialty Telecommunications Repairer Hematology/Oncology 07/16/19 Janine Carter RN [address] [place] [address] Specialty Telecommunications Repairer Hematology/Oncology 08/15/19 02/01/24 Cory Lang MD [address] [facility] [place] [address] Physician Hematology/Oncology 08/15/19 06/19/24 Katelyn Oneal PA-C [address] [place] [address] Physician Gasoline Service Attendant Hematology/Oncology 08/15/19 Ochoa Oden MD [address] [place] [address] Physician Hematology/Oncology 06/20/24 Tc Senior APRN [address] [place] [address] Referring 04/10/25 documented as of this encounter
--- OUTSIDE RECORDS SUMMARY | 2025-07-11 18:21 | XMS_ITS ---
Author Organization [facility] Address [facility] [place] [address] Care Team Providers Care Community Health Nurse Name Role Phone Halina Rodriguez MD Unavailable Destiney Martins (Rn) RN Unavailable Katelyn Oneal PA-C Unavailable Elayne Bishop MANNEQUIN MAKER Primary Care Provider Ochoa Oden MD Unavailable Tc Senior APRN Unavailable Active Problems Problem Noted Date Diagnosed Date [...] F/u with pcp in 1 week in [place] Assessment & Plan (08/01/2019 3:31 PM EDT): Assessment: Patient admitted for pseudomonas infection from mediport insertion site--- blood cultures positive per Dr rodriguez ---physician who requested direct admit. PLAN: Will obtain blood culture report from outpt facility --- [phone] Repeat blood cultures in the hospital negative so far Pt was on keflex and then bactrim as outpt Continue ABx: Zosyn ID consulted Vascular surgery consulted--- going to OR to remove por t Assessment & Plan (07/31/2019 9:04 PM EDT): Assessment: Patient admitted for pseudomonas infection from mediport insertion site PLAN: Obtain BCx from peripheral and mediport Continue ABx: Zosyn ID consulted Vascular surgery consulted Malignant neoplasm of left breast 07/11/2019 Cancer Staging:Clinical:Stage IIB(cT2, cN0, cM0, G3, ER-, SC-, HER2-) - Signed by Cory Lang) on [...] AM EST): Assessment: Does not uses CPAP Current Treatment and Therapy Plans No current plan information found. Past Treatment and Therapy Plans ONCOLOGY REGIMEN Plan Name Start Date Discontinue Date Treatment Medications Discontinue Reason Plan Provider Cycles CAPECITABINE 1000 PO BID D1-14 - Q21D 04/07/20 20 10/29/2020 capecitabine (XELODA) Other Cory Lang MD Treatment not started ABRAXANE 100 D1,8,15 - Q28D 019 04/02/2020 PACLitaxel protein-bound (ABRAXANE)PACLitax el protein-bound injection 5 mg/mL (ABRAXANE) Treatment Complete Cory Lang MD 2 of 2 cycles started PACLITAXEL 80 WEEKLY - Q84D 08/15/20 19 08/22/2019 PACLitaxel iv piggyback (TAXOL) Not Tolerated Cory Lang MD 1 of 1 cycle started AC DOSE DENSE Q14D THEN PACLITAXEL Q14D 019 08/13/2019 cyclophosphamide iv piggyback (CYTOXAN)DOXOrubic in (ADRIAMYCIN)fosapr epitant (EMEND)fosaprepita nt iv piggyback in NaCl 0.9% (EMEND)PACLitaxel iv piggyback (TAXOL)pegfilgrast im (NEULASTA ONPRO) Other Halina Rodriguez MD 1 of 8 cycles started Lifetime Dose Tracking * Chemical Lifetime Dose Automatic Entry Manual Entr y doxorubicin 60.251 mg/m2 (144 mg) 60.251 mg/m2 (144 m g) 0 mg/m2 (0 mg) Resolved Problems Problem Noted Date Diagnosed Date Resolved Date Peptic ulcer disease 06/27/2023 023
--- OUTSIDE RECORDS SUMMARY | 2025-07-11 18:21 | XMS_ITS | Encounter Summary ---
Author Organization [facility] Address [facility] [place] [address] Care Team Providers Care Feed Elevator Worker Name Role Phone Halina Orantes MD Unavailable Destiney Martins (Rn) RN Unavailable [phone] Katelyn Oneal PA-C Unavailable [phone] Elayne Bishop CNP Primary Care Provider [phone] Ochoa Oden MD Unavailable [phone] Tc Senior APRN Unavailable [phone] Source Comments In the event this information is protected by the Federal Confidentiality of Alcohol and Drug AbusePatient Records regulations: The Federal rules restrict any use of the information to criminally investigate or prosecute any alcohol or drug abuse patient.[facility] Encounter Details Date Type Department Care Team (Latest Contact Info) Description 07/03/2025 Travel Social History Tobacco Use Types Packs/Day [...] risk 9 12/18/2024 Data from: https://www.neighborhoodatlas.[facility]/. Last address used for calculation [address] [facility] 12/18/2024 Comments No Sex and Gender [...] 08/02/2025 10:30 AM EDT Office Visit Cardiology [address] [place] [address] [place] [address] [place] [address] SOB 11/05/2025 7:15 AM EST Office Visit Cardiology [address] [place] [address] Dx: Palpitation [R00.2] 11/05/2025 7:30 AM EST Procedure Cardiology [address] [place] [address] Dx: Palpitation [R00.2] 11/05/2025 8:15 AM EST Office Visit Preventive Cardiology [address] [place] [address] Brayan Leonardo MD [address] [facility] [address] [place] [address] Dx: Palpitation [R00.2] 12/31/2025 1:45 PM EDT Office Visit [facility] [address] [facility] [address] [place] [address] 6 month follow up with lab 12/31/2025 2:00 PM EDT Visit (SP) Office Hematology/Oncolog y [address] [place] [address] Katelyn Oneal, PA-C [address] [place] [address] 6 month follow up with lab documented as of this encounter Visit Diagnoses Not on filedocumented in this encounter Care Teams Feed Elevator Worker Relationship Specialty Start Date End Date Elayne Bishop CNP [address] [place] [address] PCP - General 02/09/23 [place] [address] [place] [address] Consulting Hematology/Oncology 06/27/19 Destiney [place] ([place]), [place] [address] [place] [address] Specialty Sheet Rock Finisher Hematology/Oncology 07/16/19 Katelyn Oneal PAFransicoC [address] [facility] [place] [address] Physician Analytical Tech Hematology/Oncology 08/15/19 Ochoa Oden MD [address] [place] [address] Physician Hematology/Oncology 06/20/24 Tc Senior APRN [address] [place] [address] Referring 04/10/25 documented as of this encounter
--- OUTSIDE RECORDS SUMMARY | 2025-07-11 18:21 | XMS_ITS | Encounter Summary ---
Author Organization [facility] Address [facility] [place] [address] Care Team Providers Care Senior Director Of Global Commercial Technology Solutions Name Role Phone Halina Orantes MD Unavailable Destini Kent(Hist) Primary Care Provider Unavail able Destiney Martins (Rn) RN Unavailable [phone] Janine Carter RN Unavailable [phone] Cory Lang MD Unavailable [phone] Katelyn Oneal PA-C Unavailable [phone] Elayne Bishop CNP Primary Care Provider [phone] Ochoa Oden MD Unavailable [phone] Tc Senior APRN Unavailable [phone] Source Comments In the event this information is protected by the Federal Confidentiality of Alcohol and Drug AbusePatient Records regulations: The Federal rules restrict any use of the information to criminally investigate or prosecute any alcohol or drug abuse patient.[facility] Encounter Details Date Type Department Care Team (Late st Contact Info) Description 08/30/2020 Patient Msg Mammography [address] [place] [phone] Provider, [facility] Appointment Cancellation Request Social History Tobacco Use [...] 08/02/2025 10:30 AM EDT Office Visit Cardiology [address] [place] [address] [place] [address] [facility] [place] [address] SOB 11/05/2025 7:15 AM EST Office Visit Cardiology [address] [place] [address] Dx: Palpitation [R00.2] 11/05/2025 7:30 AM EST Procedure Cardiology [address] [place] [address] Dx: Palpitation [R00.2] 11/05/2025 8:15 AM EST Office Visit Preventive Cardiology [address] [place] [address] Brayan Leonardo MD 9500 [facility] [address] [place], [place] [address] Dx: Palpitation [R00.2] 12/31/2025 1:45 PM EDT Office Visit [facility] [address] [place] [address] 6 month follow up with lab 12/31/2025 2:00 PM EDT Visit (SP) Office Hematology/Oncolog y [address] [place] [address] Katelyn Oneal, PA-C [address] [place] [address] 6 month follow up with lab documented as of this encounter Visit Diagnoses Not on filedocumented in this encounter Care Teams Senior Director Of [employer] Commercial Technology Solutions Relationship Specialty Start Date End Date Destini Kent(Hist) PCP - General 07/13/19 02/08/23 Elayne Bishop CNP [address] [place] [address] PCP - General 02/09/23 [place] [address] [place] [address] Consulting Hematology/Oncology 06/27/19 [place]y [place] ([place]), [place] [address] [place] [address] Specialty Padder Hematology/Oncology 07/16/19 Janine Carter RN [address] [place] [address] Specialty Padder Hematology/Oncology 08/15/19 02/01/24 Cory Lang MD [address] [facility] [place] [address] Physician Hematology/Oncology 08/15/19 06/19/24 Katelyn Oneal, PA-C [address] [place] [address] Physician Beef Cattle Specialist Hematology/Oncology 08/15/19 Ochoa Oden MD [address] [place] [address] Physician Hematology/Oncology 06/20/24 Tc Senior APRN [address] [place] [address] Referring 04/10/25 documented as of this encounter
--- NOTE | 2025-07-11 18:40 | XR_ITS ---
[facility] [id number] Patient Name: JOHN HOPSON MRN: [id number] date: 1965 Sex: F Assigned Patient Location: ED.MAIN Current Patient Location: ED.MAIN Accession/Order Number: [id number] Exam Date: 07/11/2025 18:55 Report Date: 07/11/2025 19:26 At the request of: JOSE ANTONIO FLETCHER Procedure: XR shoulder RT min 2V 4 views right shoulder plain film HISTORY: Right shoulder pain with decreased mobility. One month duration. No injury. COMPARISON: None ACUTE FINDINGS: None DEGENERATIVE CHANGE: Marginal spurring of acromioclavicular joint and glenohumeral joint. Subchondral cystic changes of the glenoid suspected. SOFT TISSUE FINDINGS: Unremarkable JOINT EFFUSION: None POSTOP CHANGES: None BONY MINERALIZATION: Adequate XR/XR shoulder RT min 2V IMPRESSION: Moderate degeneration. Impression dictated by: Valerio Rea M.D. 07/11/2025 7:26 PM Dictation Location[facility] Electronically authenticated by: [id number] Y Date: 07/11/2025 19:26
--- NOTE | 2025-07-11 18:50 | ED_ITS ---
HPI - Extremity Problem General Chief complaint: Extremity Problem, Nontraumatic Stated complaint: R SHOULDER PAIN Time Seen by Provider: 07/11/25 18:40 Source: patient Mode of arrival: walk-in Limitations: no limitations History of Present Illness HPI Narrative: cc - right shoulder pain Patient presents with worsening right shoulder plain and a few months ago without any known injury. 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 She has not seen her primary care physician or anybody else for this. No relief with [id number] medications for pain. She decided to come to the ED tonight for evaluation. No fever or chills. No chest pain or shortness of breath. No other symptoms. Pain is localized to the anterolateral portion of the right shoulder with some radiation down into the posterolateral portion of the proximal right upper ext remity with certain movements. Related Data Previous Rx's ?Medication ?Instructions ?Recorded methocarbamol 750 mg tablet 750 mg PO Q6H PRN pain #30 tabs 07/11/25 Allergies Allergy/AdvReac Type Severity Reaction Status Date / Time No Known Drug Allergies Allergy Verified 07/11/25 18:21 Exam Narrative Exam Narrative: Nurses notes and vital signs reviewed and patient is not hypoxic. afebrile General: Well-appearing and in no apparent distress. Skin: Warm, dry, no pallor noted. Cardiovascular: Normal peripheral perfusion. Respiratory: No accessory muscle use or respiratory distress. Lungs are clear to auscultation, no wheezing, rales or rhonchi Back: No midline thoracic vertebral tenderness. No right scapular tenderness. Musculoskeletal: Tenderness in the anterior portion of the right shoulder at the deltoid. There is also increased pain when she attempts to flex at the right shoulder as well as abduct with the elbow straight. She is able to adduct at the right shoulder with elbow flexed but has increased pain with both internal and external rotation of the right shoulder. Distal right upper extremity with normal ROM at the elbow, wrist and hand. no elbow, forearm, wrist or hand tenderness and no upper extremity edema/swelling Neurological: A&O x4. No cranial nerve dysfunction observed. No truncal ataxia. Moves all extremities. Sensation intact. Psychiatric: Cooperative and interactive. Normal mood and affect. Constitutional Vital Signs, click to edit/add: Last Vital Signs Temp 98.0 F 07/11/25 18:18 Pulse 84 07/11/25 18:18 Resp 18 07/11/25 18:18 BP 180/90 H 07/11/25 18:18 Pulse Ox 98 07/11/25 18:18 O2 Del Method Room Air 07/11/25 18:18 Course Vital Signs Vital signs: Vital Signs Temperature 98.0 F 07/11/25 18:18 Pulse Rate 84 07/11/25 18:18 Respiratory Rate 18 07/11/25 18:18 Blood Pressure 180/90 H 07/11/25 18:18 Pulse Oximetry 98 07/11/25 18:18 Oxygen Delivery Method Room Air 07/11/25 18:18 Temperature 98.0 F 07/11/25 18:18 Pulse Rate 84 07/11/25 18:18 Respiratory Rate 18 07/11/25 18:18 Blood Pressure 180/90 H 07/11/25 18:18 Pulse Oximetry 98 07/11/25 18:18 Oxygen Delivery Method Room Air 07/11/25 18:18 MDM - Extremity (Nontraumatic) MDM Narrative Medical decision making narrative: The patient's exam is consistent with a strain of the rotator cuff muscles especially along the anterior portion of the shoulder and deltoid. She was sent for x-rays of the right shoulder. This patient is signed out to Dr. Mixon who will review the films and determine final disposition and treatment for this patient. I did prescribe some methocarbamol for the patient to take at home as needed for any pain. I also talked with the patient about the need to follow-up with orthopedics and so I included that referral as well. Discharge Plan Discharge Chief Complaint: Extremity Problem, Nontraumatic Clinical Impression: Right shoulder strain Prescriptions / Home Meds: New methocarbamol 750 mg tablet 750 mg PO Q6H PRN (Reason: pain) Qty: 30 0RF Print Language: Vietnamese Instructions: Rotator Cuff Injury (ED), Rotator Cuff Injury Exercises (DC) Referrals: Nadeem Obrien DO [Physician, Orthopedics] - 1 week
[2025-07-11 19:48] VITALS: BP 120/94; PULSE 76; O2SAT 98
--- NOTE | 2025-07-11 19:59 | ED.GENADUL1 ---
HPI HPI - General Adult General Chief complaint: Extremity Problem, Nontraumatic Stated complaint: R SHOULDER PAIN Time Seen by Provider: 07/11/25 18:40 Source: patient Mode of arrival: walk-in Limitations: no limitations History of Present Illness HPI narrative: 60-year-old female presented to the emergency department for right shoulder pain and was initially seen by Dr. Abrams. Please see his full history and physical exam. Related Data Previous Rx's ?Medication ?Instructions ?Recorded methocarbamol 750 mg tablet 750 mg PO Q6H PRN pain #30 tabs 07/11/25 Allergies Allergy/AdvReac Type Severity Reaction Status Date / Time No Known Drug Allergies Allergy Verified 07/11/25 18:21 Opioid HPI Opioid Management Most Recent Opioid Data: Last Pain Scale 9 Today, 18:18 Exam Constitutional Vital Signs, click to edit/add: Last Vital Signs Temp 98.0 F 07/11/25 18:18 Pulse 76 07/11/25 19:48 Resp 16 07/11/25 19:48 BP 120/94 H 07/11/25 19:48 Pulse Ox 98 07/11/25 19:48 O2 Del Method Room Air 07/11/25 19:48 Course Vital Signs Vital signs: Vital Signs Temperature 98.0 F 07/11/25 18:18 Pulse Rate 84 07/11/25 18:18 Respiratory Rate 18 07/11/25 18:18 Blood Pressure 180/90 H 07/11/25 18:18 Pulse Oximetry 98 07/11/25 18:18 Oxygen Delivery Method Room Air 07/11/25 18:18 Temperature 98.0 F 07/11/25 18:18 Pulse Rate 76 07/11/25 19:48 Respiratory Rate 16 07/11/25 19:48 Blood Pressure 120/94 H 07/11/25 19:48 Pulse Oximetry 98 07/11/25 19:48 Oxygen Delivery Method Room Air 07/11/25 19:48 Medical Decision Making MDM Narrative Medical decision making narrative: X-ray per radiologist shows moderate degenerative changes, no fractures. Findings were discussed with the patient and she is referred to orthopedics and was prescribed Robaxin by Dr. Abrams. Treatment diagnosis and follow-up were discussed with the patient. Differential Diagnosis Differential Diagnosis: Muscle strain, rotator cuff strain, fracture, calcific tendinitis Imaging Data Right shoulder x-ray: Radiologist's impression: ITS Impressions Shoulder X-Ray 07/11/25 18:40 IMPRESSION: Moderate degeneration. Impression dictated by: Valerio Rea M.D. 07/11/2025 7:26 PM Dictation Location: [facility] Electronically authenticated by: [id number] Y Date: 07/11/2025 19:26 Discharge Plan Discharge Chief Complaint: Extremity Problem, Nontraumatic Clinical Impression: Right shoulder strain Patient Disposition: Home, Self-Care Time of Disposition Decision: 19:36 Condition: Good Mode of Transportation: Private Vehicle Prescriptions / Home Meds: New methocarbamol 750 mg tablet 750 mg PO Q6H PRN (Reason: pain) Qty: 30 0RF Print Language: Khmer Instructions: Rotator Cuff Injury (ED), Rotator Cuff Injury Exercises (DC) Referrals: Nadeem Obrien DO [Physician, Orthopedics] - 1 week Discharge Date/Time: 07/11/25 19:48
== END 2025-07-11 19:48 | disposition home or self-care (01) ==
PROVIDERS: Emergency Provider Emergency Medicine; PCP Case Manager/Care Coordinator
DX: S46.911A Strain of unspecified muscle, fascia and tendon at shoulder and upper arm level, right arm, initial encounter (principal)
CPT/HCPCS: 73030; 99283